=== PATIENT | female | born 1990 | race Two or more races ===

== ENCOUNTER 2017-10-14 17:16 | Emergency (ER) | payer OTHER ==
[2017-10-14 17:35] VITALS: BP 123/81
[2017-10-14 17:53] LABS: BILIRUBIN,URINE NEGATIVE (NEGATIVE); GLUCOSE, URINE (UA) NEGATIVE (NEGATIVE); KETONES,URINE (UA) NEGATIVE (NEGATIVE); LEUKOCYTE ESTERASE, URINE NEGATIVE (NEGATIVE); NITRITE,URINE NEGATIVE (NEGATIVE); OCCULT BLOOD,URINE NEGATIVE (NEGATIVE); PH,URINE 5.5 PH (5.0-7.5); PROTEIN,URINE NEGATIVE (NEGATIVE); UROBILINOGEN,URINE 0.2 (NORMAL) E.U./dL (NORMAL)
[2017-10-14 17:55] LABS: CLARITY,URINE CLEAR (CLEAR); HCG UR QUAL NEGATIVE
[2017-10-14] MEDS ORDERED: HYDROcod/ACETAM 5/325 MG TABLET PO STA (17:58)
[2017-10-14] MEDS ORDERED: predniSONE 20 MG TABLET PO STA (17:58)
--- NOTE | 2017-10-14 18:03 | ED Physician Documentation ---
PD HPI BACK PAIN - Stated complaint Stated Complaint: LOW BACK/HIP PX - Chief complaint Chief Complaint: Back Pain - History obtained from History obtained from: Patient - History of Present Illness Timing - onset: Other (4 days of atraumatic back pain across the low lumbar spine to both sides but not down the legs. No weakness, numbness, or tingling. She has not had any urinary complaints or fevers. 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 HEENT: Tonsil/Adenoidectomy - Present Medications Home Medications: Ambulatory Orders Medication Instructions Recorded Confirmed Albuterol Sulfate [Proair Hfa 10/14/17 Inhaler] Fluticasone [Flonase] 10/14/17 HYDROcod/ACETAM 5/325 [[place] 5/325] 1 - 2 ea PO Q6H PRN #15 tablet 10/14/17 predniSONE [Deltasone] 60 mg PO DAILY 5 Days tablet 10/14/17 - Allergies Allergies/Adverse Reactions: Allergies Allergy/AdvReac Type Severity Reaction Status Date / Time No Known Drug Allergies Allergy Verified 10/14/17 17:35 - Social History Does the pt smoke?: No Smoking Status: Never smoker PD ED PE NORMAL - Vitals Vital signs reviewed: Yes - General General: Alert and oriented X 3, No acute distress - Neck Neck: Supple, no meningeal sign, No bony TTP - Back Back: No spinal TTP, Other (The patient has equal and normal Achilles and patellar reflexes bilaterally. Normal sensation in all areas of the legs. Patient denies saddle anesthesia. Normal strength in flexion-extension at the ankles, knees, and flexion of the hips.) - Neuro Neuro: Alert and oriented X 3, Normal speech Results - Vitals Vitals: Vital Signs - 24 hr 10/14/17 17:31 Temperature 36.9 C Heart Rate 65 Respiratory 15 Rate Blood Pressure 123/81 H O2 Saturation 99 Oxygen O2 Source Room air - Labs Labs: Laboratory Tests 10/14/17 10/14/17 17:38 17:38 Urine Color YELLOW Urine Clarity CLEAR Urine pH 5.5 Ur Specific [place] 1.010 1.010 Urine Protein NEGATIVE Urine Glucose (UA) NEGATIVE Urine Ketones NEGATIVE Urine Occult Blood NEGATIVE Urine Nitrite NEGATIVE Urine Bilirubin NEGATIVE Urine Urobilinogen 0.2 (NORMAL) Ur Leukocyte Esterase NEGATIVE Ur Microscopic Review NOT INDICATED Urine Culture Comments NOT INDICATED Urine HCG, Qual NEGATIVE PD MEDICAL DECISION MAKING - ED course ED course: This patient has seemingly uncomplicated musculoskeletal back pain. The patient has no "red flags." Specifically denies IV drug use, fevers, incontinence, saddle anesthesia. Spinal epidural abscess was considered, given that the patient has no fever, is not diabetic, has no spinal tenderness, does not use IV drugs, and has no bilateral neurologic symptoms, the diagnosis of spinal epidural abscess is considered exceedingly unlikely. Departure - Departure Disposition: 01 Home, Self Care Clinical Impression: Back pain Qualifiers: Back pain location: low back pain Chronicity: acute Back pain laterality: bilateral Sciatica presence: without sciatica Qualified Code(s): M54.5 - Low back pain Condition: Good Record reviewed to determine appropriate education?: Yes Instructions: ED Low Back Pain Injury Prescriptions: HYDROcod/ACETAM 5/325 [[place] 5/325] 1 - 2 ea PO Q6H PRN #15 tablet PRN Reason: Pain predniSONE [Deltasone] 60 mg PO DAILY 5 Days tablet Comments: Call your doctor to arrange a follow-up appointment, make the next available appointment. In the interim, return anytime if worse or if new symptoms develop. Your blood pressure was elevated today on check into the emergency department. This does not mean that you have hypertension, it is a common phenomenon to come to the emergency department and have elevated blood pressure. I recommend that you see your primary care physician within the week to have it rechecked when you are feeling better. Do not drink or drive while taking narcotic pain medication. Note that many narcotic pain relievers also contain Tylenol/acetaminophen. Please ensure that your total dose of acetaminophen from all sources does not exceed 3 g (3000 mg) per day. You may get constipated while on this medication. Take a stool softener such as Colace twice a day while you are on it. Also add an wuby-yni-ouztwkk laxative such as senna or MiraLAX on any day that you do not have a bowel movement. If you received a narcotic pain medication or sedative while in the emergency department, do not drive for the next 24 hours.
== END 2017-10-14 18:11 | disposition home or self-care (01) ==
LOC: ED 17:16
DX: M54.5 Low back pain (principal); R03.0 Elevated blood-pressure reading, without diagnosis of hypertension
CPT/HCPCS: 81003; 81025; 99283; A9270; J7512; 81001; 87086

== ENCOUNTER 2019-07-24 19:19 | Outpatient (CLI) | payer OTHER ==
--- NOTE | 2019-07-25 00:51 | Ultrasound Report ---
Reason: PELVIC PAIN Procedure Date: 07/24/2019 Accession Number: [id number] / [id number] Procedure: US - Pelvic w/Transvaginal CPT Code: Final Report FULL RESULT: EXAM: PELVIC ULTRASOUND EXAM DATE: 07/24/2019 07:59 PM. CLINICAL HISTORY: Pelvic pain COMPARISON: None. TECHNIQUE: Realtime transabdominal pelvic scan performed to identify the uterus and adnexa and as an overview of other pelvic structures, followed by transvaginal scan to provide greater detail of the uterus and adnexa, with static image documentation. FINDINGS: Uterus: 9.3 x 5.1 x 4.8 cm, volume 119.9 cc. Anteverted position. Normal overall size and echotexture. scar noted. Masses: None. Endometrium: 7 mm. No focal endometrial abnormalities. Cervix: Unremarkable. Right Ovary: 2.2 x 2.1 x 2.7 cm, volume 6.2 cc. Normal echotexture and blood flow. Left Ovary: 2.6 x 1.8 x 1.4 cm, volume 3.4 cc. Normal echotexture and blood flow. Free Fluid: None. Other: None. IMPRESSION: No acute sonographic abnormalities. RADIA
== END 2019-07-24 19:20 | disposition home or self-care (01) ==
LOC: DI 19:19
PROVIDERS: ATTEND Physician Assistant
DX: R10.2 Pelvic and perineal pain (principal)
CPT/HCPCS: 76830; 76856

== ENCOUNTER 2020-02-14 14:17 | Emergency (ER) | payer OTHER ==
[2020-02-14 15:07] LABS: BASOPHILS % (AUTO) 0.3 %; EOSINOPHILS % (AUTO) 0.3 %; HGB - HEMOGLOBIN 12.8 g/dL (12.0-16.0); LYMPHOCYTES # (AUTO) 1.1 10^3/uL (1.5-3.5); LYMPHOCYTES % (AUTO) 18.2 %; MEAN CORPUSCULAR HEMOGLOBIN 32.2 pg (27.0-31.0); MEAN CORPUSCULAR HGB CONC 35.1 g/dL (32.0-36.0); MEAN CORPUSCULAR VOLUME 91.7 fL (81.0-99.0); MEAN PLATELET VOLUME 10.8 fL (7.9-10.8); MONOCYTES # (AUTO) 0.4 10^3/uL (0.0-1.0); MONOCYTES % (AUTO) 6.4 %; NEUTROPHILS # (AUTO) 4.6 10^3/uL (1.5-6.6); NEUTROPHILS % (AUTO) 74.6 %; PLT - PLATELET COUNT 193 10^3/uL (130-450); RED BLOOD COUNT 3.98 10^6/uL (4.20-5.40); RED CELL DISTRIBUTION WIDTH 11.8 % (12.0-15.0); WHITE BLOOD COUNT 6.2 x10^3/uL (4.8-10.8)
[2020-02-14] MEDS ORDERED: KETOROLAC 30 MG/ML VIAL IVP STA (15:16)
[2020-02-14] MEDS ORDERED: ONDANSETRON 4 MG/2 ML VIAL IVP STA (15:16)
[2020-02-14 15:20] LABS: ALBUMIN 3.7 g/dL (3.2-5.5); ALBUMIN/GLOBULIN RATIO 1.5 (1.0-2.2); BILIRUBIN,TOTAL 1.6 mg/dL (0.2-1.0); CALCIUM 7.7 mg/dL (8.5-10.3); CREATININE 0.9 mg/dL (0.4-1.0); TOTAL PROTEIN 6.1 g/dL (6.7-8.2)
[2020-02-14 15:37] LABS: HCG UR QUAL NEGATIVE
--- NOTE | 2020-02-14 15:51 | CT Report ---
Reason: syncope, right facial pain, jaw pain. R/o fx Procedure Date: 02/14/2020 Accession Number: [id number] / [id number] Procedure: CT - MAXILLOFACIAL WO CPT Code: Final Report FULL RESULT: PROCEDURE: MAXILLOFACIAL WO INDICATIONS: syncope, right facial pain, jaw pain. Clinical concern for fracture. TECHNIQUE: Noncontrast 1.5 mm thick axial images acquired from the mandible through the frontal sinuses, with coronal and sagittal reformatting. For radiation dose reduction, the following was used: automated exposure control, adjustment of mA and/or kV according to patient size. COMPARISON: None. FINDINGS: Image quality: Excellent. Bones and teeth: Orbital jordan are intact. Sinus jordan show no fracture or deformity. Nasal bones and septum are intact. Visualized portions of the mandible demonstrate no fractures or subluxation. Zygomatic arches are intact. Pterygoid plates are intact. Visualized portions of the skull base and auditory canals are intact. Sinuses: There is a mild mucous retention cyst seen along the inferior aspect of the left maxillary sinus, as on series 6 image 53. Paranasal sinuses are aerated, without fluid levels or mucosal thickening. Mastoid air cells are aerated. Incidental note is made of bilateral ida bullosa, left larger than right. There is mild rightward nasal septal deviation. Soft tissues: No edema, masses, or fluid collections. No enlarged lymph nodes. No soft tissue lacerations or debris. Vascular: Visualized vascular structures appear normal in the absence of contrast. Bony vascular foramina and canals are intact. IMPRESSION: No displaced fractures can be seen. Reviewed by: Daniel Zuleta MD on 02/14/2020 2:49 PM AKDT Approved by: Daniel Zuleta MD on 02/14/2020 2:49 PM AKDT Station ID: [id number]
[2020-02-14] MEDS ORDERED: SODIUM CHLORIDE 0.9% 1,000 ML IV STA (16:01)
--- NOTE | 2020-02-14 16:20 | ED Physician Documentation ---
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 pt reports that for about 4 hours she has been having n/v/d between midnight and 4am. She thought it was food poising and decided to push through at work. While walking in a hallway, she fainted. she does not remember the event, but woke up with people surrounding her. No loss of bowel or bladder function. pt reports a hx of recurrent syncope when she was a teenager. she had extensive imaging and w/u including EEG to r/o seizure activity. Ultimately it was attributed to vasovagal causes and she has not had any syncope for many years at present time, pt is c/p right face and jaw pain in the area where she hit her head. she in in a c-collar but denies neck pain. C-collar removed at the bedside; she does not meet NEXUS criteria for c-spine imaging Review of Systems Constitutional: denies: Fever, Chills, Fatigue Ears: denies: Loss of hearing Nose: reports: Other (right jaw and facial pain). denies: Rhinorrhea / runny nose Throat: denies: Dental pain / toothache, Oral lesions / sores Cardiac: denies: Chest pain / pressure, Palpitations Respiratory: denies: Dyspnea GI: reports: Nausea, Vomiting (n/v/d for 24 hours preceeding ED visit), Diarrhea. denies: Abdominal Pain : denies: Dysuria Skin: denies: Rash, Lesions, Laceration (s) Musculoskeletal: reports: Other (right jaw and facial pain) Neurologic: reports: Syncope. 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 HEENT: Tonsil/Adenoidectomy - Present Medications Home Medications: Ambulatory Orders Medication Instructions Recorded Confirmed Norethindrone AC-Eth Estradiol 02/14/20 [Microgestin 21 1.5-30 Tab] - Allergies Allergies/Adverse Reactions: Allergies Allergy/AdvReac Type Severity Reaction Status Date / Time No Known Drug Allergies Allergy Verified 02/14/20 14:31 - Social History Does the pt smoke?: No Smoking Status: Never smoker PD ED PE NORMAL - Vitals Vital signs reviewed: Yes - General General: Alert and oriented X 3, No acute distress, Well developed/nourished - HEENT HEENT: Atraumatic, Ears normal, Pharynx benign - Neck Neck: Supple, no meningeal sign, No bony TTP, No adenopathy, Other (no midlien spionous process tenderness. motor strength 5/5 BUE. no swelling, trauma. full ROM neck in all planes withotu pain elicited; C-collar removed and no C pine imaging performed via NEXUS criteria) - Cardiac Cardiac: RRR, No murmur, No gallop - Respiratory Respiratory: No respiratory distress - Abdomen Abdomen: Normal bowel sounds, Non tender - Female Female : No: Deferred - Back Back: No spinal TTP - Derm Derm: Normal color, Warm and dry, No rash - Extremities Extremities: No deformity, Normal ROM s pain, No calf tenderness / cord - Neuro Neuro: broomcorn scraper 2-12 intact, No motor deficit, No sensory deficit, Normal speech Eye Opening: Spontaneous Motor: Obeys Commands Verbal: Oriented GCS Score: 15 - Psych Psych: Normal mood Results - Vitals Vitals: Vital Signs - 24 hr 02/14/20 02/14/20 14:33 14:44 Temperature 37.1 C Heart Rate 80 55 L Respiratory 24 17 Rate Blood Pressure 115/74 119/67 O2 Saturation 99 100 Oxygen O2 Source Room air - EKG (time done) 1523 Rate: Rate (enter#) Rhythm: NSR [place]: Normal Intervals: Normal NE QRS: Normal Ischemia: Normal ST segments Compare to prior EKG: Old EKG unavailable Computer interpretation: Agree with computer - Labs Labs: Laboratory Tests 02/14/20 02/14/20 02/14/20 14:59 14:59 14:59 WBC 6.2 RBC 3.98 L Hgb 12.8 Hct 36.5 L MCV 91.7 MCH 32.2 H MCHC 35.1 RDW 11.8 L Plt Count 193 MPV 10.8 Neut # (Auto) 4.6 Lymph # (Auto) 1.1 L Elliott # (Auto) 0.4 Eos # (Auto) 0.0 Baso # (Auto) 0.0 Absolute Nucleated RBC 0.00 Nucleated RBC % 0.0 Sodium 135 Potassium 3.6 Chloride 106 Carbon Dioxide 23 Anion Gap 6.0 BUN 13 Creatinine 0.9 Estimated GFR (MDRD) 74 L Glucose 89 Calcium 7.7 L Total Bilirubin 1.6 H AST 16 ALT 15 Alkaline Phosphatase 36 L Troponin I High Sens < 2.3 L Total Protein 6.1 L Albumin 3.7 Globulin 2.4 Albumin/Globulin Ratio 1.5 Lipase 30 Ur Specific [place] Urine HCG, Qual 02/14/20 15:25 WBC RBC Hgb Hct MCV MCH MCHC RDW Plt Count MPV Neut # (Auto) Lymph # (Auto) Elliott # (Auto) Eos # (Auto) Baso # (Auto) Absolute Nucleated RBC Nucleated RBC % Sodium Potassium Chloride Carbon Dioxide Anion Gap BUN Creatinine Estimated GFR (MDRD) Glucose Calcium Total Bilirubin AST ALT Alkaline Phosphatase Troponin I High Sens Total Protein Albumin Globulin Albumin/Globulin Ratio Lipase Ur Specific [place] <=1.005 Urine HCG, Qual NEGATIVE - Rads (name of study) Ct max fa Radiology: Final report received (no acute abnormality) PD MEDICAL DECISION MAKING - ED course Complexity details: reviewed results, re-evaluated patient, d/w patient ED course: Syncope in 29 year old female that occurred at work. this followed 4 hours of persistent n/v/d overnight - non - ECG NSR, no ischemic changes. pt denies CP and pleuritic chest pain; doubt PE. PERC negative - labs reviewed. essentially normal electrolytes. no anemia. noted mild bilirubin elevation, but normal lipase and no abdominal tenderness elicited. low suspicion for acute choley - pt reported right sided facial pain after she syncopized and hit the wall. No e/o fracture. pt given toradol with good relief of symptoms. - pt received 2 liters of IVF and her lightheadedness has improved - orthostatic BP's reviewed and not c/w orthostatic changes. BP's noted in the 90's, but pt notes that this is normal for her - will recommed fluids and rest at home. pt is not tolerating PO well in the ED. no need for anti-emetic - advised close f/u with her PCP in the next week - emergent return precautions discussed - Departure - Departure Disposition: 01 Home, Self Care Clinical Impression: Facial pain, acute Syncope Qualifiers: Syncope type: unspecified Qualified Code(s): R55 - Syncope and collapse Condition: Stable Record reviewed to determine appropriate education?: Yes Instructions: ED Dizziness Syncope Fainting W Pre Comments: Demetra, I hope you feel better Stay for and get lots of rest and fluids. Drink and eat small meals frequently The labs and CT look pretty normal. I suspect that you had fainting secondary to being dehydrated after vomiting and diarrhea overnight However if your symptoms are not improving in any way, please return for a second look I would like you to see your primary doctor in follow up in the next week
[2020-02-14 16:47] VITALS: BP 97/60
== END 2020-02-14 17:24 | disposition home or self-care (01) ==
LOC: EDUNIT# → ED 14:17
DX: R55 Syncope and collapse (principal); R11.2 Nausea with vomiting, unspecified; R19.7 Diarrhea, unspecified; R51 Headache; R68.84 Jaw pain; W18.30XA Fall on same level, unspecified, initial encounter; Y93.01 Activity, walking, marching and hiking; Y99.0 Civilian activity done for income or pay
CPT/HCPCS: 36415; 70486; 80053; 81025; 83690; 84484; 85025; 93005; 96361; 96374; 99284

== ENCOUNTER 2020-07-02 17:08 | Outpatient (CLI) | payer SELFPAY | END 2020-07-02 17:09 | disposition home or self-care (01) | LOC: COV 17:08 | PROVIDERS: ATTEND Family Medicine | DX: Z20.828 Contact with and (suspected) exposure to other viral communicable diseases (principal) ==

== ENCOUNTER 2020-08-13 14:12 | Outpatient (CLI) | payer OTHER | END 2020-08-13 14:13 | disposition home or self-care (01) | LOC: COV 14:12 | PROVIDERS: ATTEND Family Medicine | DX: R50.9 Fever, unspecified (principal); R05 Cough; R06.02 Shortness of breath; M79.10 Myalgia, unspecified site; R53.83 Other fatigue; J02.9 Acute pharyngitis, unspecified; R19.7 Diarrhea, unspecified; R09.81 Nasal congestion; R11.2 Nausea with vomiting, unspecified; Z20.828 Contact with and (suspected) exposure to other viral communicable diseases ==

== ENCOUNTER 2021-03-09 20:34 | Outpatient (CLI) | payer SELFPAY | END 2021-03-09 20:35 | disposition other institution (70) | LOC: EMS 20:34 | DX: S00.12XA Contusion of left eyelid and periocular area, initial encounter (principal); V58.5XXA Driver of pick-up truck or van injured in noncollision transport accident in traffic accident, initial encounter; Y93.89 Activity, other specified; Y92.413 State road as the place of occurrence of the external cause; M54.9 Dorsalgia, unspecified; M54.2 Cervicalgia; R56.9 Unspecified convulsions | CPT/HCPCS: A0425; A0427 ==

== ENCOUNTER 2021-04-01 08:32 | Emergency (ER) | payer OTHER ==
[2021-04-01 08:53] VITALS: BP 114/68
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
[2021-04-01] MEDS: TRIAMCINOLONE 40 MG/ML VIAL IM STA (09:23)
[2021-04-01] MEDS: HYDROmorphone 1 MG/ML CARPUJECT IM STA ×2 (09:25→10:36)
[2021-04-01] MEDS: KETOROLAC 15 MG/ML VIAL IM STA (09:25)
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
[2021-04-01] MEDS: methocarbamoL 500 MG TABLET PO STA (10:37)
== END 2021-04-01 12:36 | disposition home or self-care (01) ==
LOC: ED 08:32
DX: S39.012A Strain of muscle, fascia and tendon of lower back, initial encounter (principal); X58.XXXA Exposure to other specified factors, initial encounter
CPT/HCPCS: 72131; 96372; 99284; A9270; J1170

== ENCOUNTER 2021-06-04 09:10 | Outpatient (CLI) | payer OTHER | END 2021-06-04 09:11 | disposition critical access hospital (66) | LOC: EMS 09:10 | DX: Z04.1 Encounter for examination and observation following transport accident (principal); M54.5 Low back pain | CPT/HCPCS: A0425; A0427 ==

== ENCOUNTER 2021-06-04 09:18 | Emergency (ER) | payer OTHER ==
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
[2021-06-04] MEDS ORDERED: HYDROmorphone 1 MG/ML CARPUJECT IVP STA ×2 (09:31→10:32)
[2021-06-04] MEDS ORDERED: KETOROLAC 15 MG/ML VIAL IVP STA (09:31)
[2021-06-04] MEDS ORDERED: SODIUM CHLORIDE 0.9% 1,000 ML IV STA (09:31)
[2021-06-04 09:40] LABS: BASOPHILS % (AUTO) 0.4 %; EOSINOPHILS # (AUTO) 0.1 10^3/uL (0.0-0.7); EOSINOPHILS % (AUTO) 0.8 %; HCT - HEMATOCRIT 43.4 % (37.0-47.0); LYMPHOCYTES # (AUTO) 1.2 10^3/uL (1.5-3.5); LYMPHOCYTES % (AUTO) 13.6 %; MEAN CORPUSCULAR HEMOGLOBIN 31.9 pg (27.0-31.0); MEAN CORPUSCULAR HGB CONC 34.6 g/dL (32.0-36.0); MEAN CORPUSCULAR VOLUME 92.3 fL (81.0-99.0); MEAN PLATELET VOLUME 10.6 fL (7.9-10.8); MONOCYTES # (AUTO) 0.3 10^3/uL (0.0-1.0); NEUTROPHILS # (AUTO) 6.8 10^3/uL (1.5-6.6); PLT - PLATELET COUNT 235 10^3/uL (130-450); RED CELL DISTRIBUTION WIDTH 11.5 % (12.0-15.0); WHITE BLOOD COUNT 8.4 x10^3/uL (4.8-10.8)
[2021-06-04] MEDS ORDERED: IOPAMIDOL-300 100 ML VIAL ONE (09:47)
[2021-06-04 09:53] LABS: ALBUMIN 4.4 g/dL (3.2-5.5); ALBUMIN/GLOBULIN RATIO 1.4 (1.0-2.2); BILIRUBIN,TOTAL 1.4 mg/dL (0.2-1.0); CALCIUM 9.3 mg/dL (8.5-10.3); CREATININE 0.8 mg/dL (0.4-1.0); POTASSIUM 4.1 mmol/L (3.5-5.0); TOTAL PROTEIN 7.6 g/dL (6.7-8.2)
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
[2021-06-04 10:22] LABS: HCG,QUALITATIVE BLOOD NEGATIVE
[2021-06-04] MEDS ORDERED: DEXAMETHASONE 10 MG/ML VIAL IVP STA (10:32)
[2021-06-04] MEDS ORDERED: IOPAMIDOL-300 100 ML VIAL IVP ONE (11:46)
[2021-06-04] MEDS ORDERED: DROPERIDOL 5 MG/2 ML VIAL IVP STA (12:07)
[2021-06-04 12:42] VITALS: BP 94/55
== END 2021-06-04 12:53 | disposition home or self-care (01) ==
LOC: EDUNIT# → ED 09:18
DX: S39.012A Strain of muscle, fascia and tendon of lower back, initial encounter (principal); S16.1XXA Strain of muscle, fascia and tendon at neck level, initial encounter; S20.219A Contusion of unspecified front wall of thorax, initial encounter; V47.0XXA Car driver injured in collision with fixed or stationary object in nontraffic accident, initial encounter
CPT/HCPCS: 36415; 70450; 71260; 72125; 74177; 80053; 83690; 84703; 85025; 96374; 96375; 99284; 99285; J1170; Q9967

== ENCOUNTER 2022-04-08 15:14 | Emergency (ER) | payer OTHER ==
--- OUTSIDE RECORDS SUMMARY | 2022-04-08 15:44 | EXTERNAL MEDICAL SUMMARY RPT | Continuity of Care Document ---
:1990 Author Organization [facility] Address [address] [place] [address] Phone Allergies and Intolerances date description facility type (no date) No Known Drug Allergies [facility] (unkn own) Encounters No information. Functional Status No information. Immunizations No information. Medications date description facility [id number]+0000 prochlorperazine maleate All [id number]+0000 hydrocodone-acetaminophen All 22541927998781+0000 Ondansetron 4 MG Disintegrating Tablet [facility] [id number]+0000 Oxycodone Hydrochloride 5 MG Oral Tabl [facility] 28612716639087+0000 Prochlorperazine 10 MG Oral Tablet Is [facility] 12107433507529+0000 prochlorperazine maleate All 82039842982292+0000 Acetaminophen 325 MG Oral Capsule [facility] 62123690617648+0000 norethindrone-e.estradiol-iron All 96686519413165+0000 Ibuprofen [address] [facility]spital 21411664996995+0000 norethindrone-e.estradiol-iron All 32094194557984+0000 Acetaminophen 325 MG / Hydrocodone Is [facility] Bitartrate 5 MG Oral Tablet 39435359205800+0000 hydrocodone-acetaminophen All Problems No information. Procedures date description facility +0000 [facility] 40776250233151+0000 [facility] 58885063488310+0000 [facility] [id number]+0000 [facility] Results/Labs test date author facility value unit interpret ation Result panel 1 (unknown) (no (unknown) (unknown) (no value) (units (unk nown) date) unknown) (unknown) (no (unknown) (unknown) (no value) (units (unk nown) date) unknown) (unknown) (no (unknown) (unknown) [place], [place] (units ( unknown) date) [address] unknown) (unknown) (no (unknown) (unknown) Draft (units (unkno wn) date) unknown) (unknown) (no (unknown) (unknown) [facility] (units (unknown) date) unknown) (unknown) (no (unknown) (unknown) Nurse Office (units (u nknown) date) Visit unknown) (unknown) (no (unknown) (unknown) (no value) (units (unk nown) date) unknown) (unknown) (no (unknown) (unknown) COVID-19 (units (u nknown) date) unknown) (unknown) (no (unknown) (unknown) [id number] (units (unkn own) date) unknown) (unknown) (no (unknown) (unknown) 01/20/22 (units (unkno wn) date) unknown) (unknown) (no (unknown) (unknown) Age/Sex: 31 / F (units (unknown) date) Date of unknown) Service: (unknown) (no (unknown) (unknown) Allergies (units (unkn own) date) unknown) (unknown) (no (unknown) (unknown) Attending Dr: (units ( unknown) date) Rishabh Baez MD unknown) (unknown) (no (unknown) (unknown) : 1990 (units (unknown) date) Acct:[id number] unknown) (unknown) (no (unknown) (unknown) Dept at (units (unkno wn) date) . unknown) (unknown) (no (unknown) (unknown) Documented By: (units (unknown) date) Rishabh Baez MD unknown) 01/20/22 1505 (unknown) (no (unknown) (unknown) Evaluation/Scree (units (unknown) date) harriett for possible unknown) COVID-19 completed?: Yes- COVID-19 CPT (unknown) (no (unknown) (unknown) Health (units (unkno wn) date) Management unknown) (unknown) (no (unknown) (unknown) Health (units (unkno wn) date) Management unknown) reviewed with patient: No (unknown) (no (unknown) (unknown) Intake (units (unkno wn) date) unknown) (unknown) (no (unknown) (unknown) Intake Note: (units (u nknown) date) unknown) (unknown) (no (unknown) (unknown) Loc: [facility] (units (unkno wn) date) unknown) (unknown) (no (unknown) (unknown) No Known Drug (units ( unknown) date) Allergies Allergy unknown) (Verified 12/29/21 15:22) (unknown) (no (unknown) (unknown) Note (units (unkno wn) date) unknown) (unknown) (no (unknown) (unknown) Patient: (units (unkno wn) date) Demetra Young C unknown) MR#: M (unknown) (no (unknown) (unknown) Pt came in for a (units (unknown) date) pre-op covid unknown) test. Denied any covid symptoms. Explained covid (unknown) (no (unknown) (unknown) Reason For Visit (units (unknown) date) unknown) (unknown) (no (unknown) (unknown) Signed By: (units (unk nown) date) unknown) (unknown) (no (unknown) (unknown) Smoking Status: (units (unknown) date) Never smoker unknown) (unknown) (no (unknown) (unknown) This note may (units ( unknown) date) have been all or unknown) partially generated using voice recognition (unknown) (no (unknown) (unknown) Tobacco Status (units (unknown) date) unknown) (unknown) (no (unknown) (unknown) Visit Reasons: (units (unknown) date) COVID/MARQUIS unknown) (unknown) (no (unknown) (unknown) have occurred. (units (unknown) date) If there are any unknown) questions, please contact the Medical Records (unknown) (no (unknown) (unknown) may occur. (units (unk nown) date) Occasional unknown) wrong-word or 'sound-alike' substitutions may have (unknown) (no (unknown) (unknown) occurred due to (units (unknown) date) the inherent unknown) limitations of voice recognition software. Please (unknown) (no (unknown) (unknown) read the note (units ( unknown) date) carefully and unknown) recognize, using context, where these substitutions (unknown) (no (unknown) (unknown) software. (units (unkn own) date) Although every unknown) effort is made to edit content, product director errors (unknown) (no (unknown) (unknown) test to pt. (units (un known) date) Tolerated test unknown) well. Result panel 2 (unknown) (no date) (unknown) (unknown) Negative (units (unkn own) unknown) Result panel 3 (unknown) (no (unknown) (unknown) (no value) (units (unk nown) date) unknown) (unknown) (no (unknown) (unknown) (no value) (units (unk nown) date) unknown) (unknown) (no (unknown) (unknown) 01/21/22 0836 (units ( unknown) date) unknown) (unknown) (no (unknown) (unknown) [place], [place] (units ( unknown) date) [address] unknown) (unknown) (no (unknown) (unknown) [facility] (units (unknown) date) unknown) (unknown) (no (unknown) (unknown) Nurse Office (units (u nknown) date) Visit unknown) (unknown) (no (unknown) (unknown) Signed (units (unkno wn) date) unknown) (unknown) (no (unknown) (unknown) (no value) (units (unk nown) date) unknown) (unknown) (no (unknown) (unknown) COVID-19 (units (u nknown) date) unknown) (unknown) (no (unknown) (unknown) [id number] (units (unkn own) date) unknown) (unknown) (no (unknown) (unknown) 01/20/22 (units (unkno wn) date) unknown) (unknown) (no (unknown) (unknown) Age/Sex: 31 / F (units (unknown) date) Date of unknown) Service: (unknown) (no (unknown) (unknown) Allergies (units (unkn own) date) unknown) (unknown) (no (unknown) (unknown) Attending Dr: (units ( unknown) date) Rishabh Baez MD unknown) (unknown) (no (unknown) (unknown) : 1990 (units (unknown) date) Acct:[id number] unknown) (unknown) (no (unknown) (unknown) Dept at (units (unkno wn) date) . unknown) (unknown) (no (unknown) (unknown) Documented By: (units (unknown) date) Rishabh Baez MD unknown) 01/20/22 1505 (unknown) (no (unknown) (unknown) Evaluation/Scree (units (unknown) date) harriett for possible unknown) COVID-19 completed?: Yes- COVID-19 CPT (unknown) (no (unknown) (unknown) Health (units (unkno wn) date) Management unknown) (unknown) (no (unknown) (unknown) Health (units (unkno wn) date) Management unknown) reviewed with patient: No (unknown) (no (unknown) (unknown) Intake (units (unkno wn) date) unknown) (unknown) (no (unknown) (unknown) Intake Note: (units (u nknown) date) unknown) (unknown) (no (unknown) (unknown) Loc: [facility] (units (unkno wn) date) unknown) (unknown) (no (unknown) (unknown) No Known Drug (units ( unknown) date) Allergies Allergy unknown) (Verified 12/29/21 15:22) (unknown) (no (unknown) (unknown) Note (units (unkno wn) date) unknown) (unknown) (no (unknown) (unknown) Patient: (units (unkno wn) date) Demetra Young unknown) MR#: M (unknown) (no (unknown) (unknown) Pt came in for a (units (unknown) date) pre-op covid unknown) test. Denied any covid symptoms. Explained covid (unknown) (no (unknown) (unknown) Reason For Visit (units (unknown) date) unknown) (unknown) (no (unknown) (unknown) Signed By: (units (unk nown) date) <Electronically unknown) signed by Rishabh Baez MD> (unknown) (no (unknown) (unknown) Smoking Status: (units (unknown) date) Never smoker unknown) (unknown) (no (unknown) (unknown) This note may (units ( unknown) date) have been all or unknown) partially generated using voice recognition (unknown) (no (unknown) (unknown) Tobacco Status (units (unknown) date) unknown) (unknown) (no (unknown) (unknown) Visit Reasons: (units (unknown) date) COVID/MARQUIS unknown) (unknown) (no (unknown) (unknown) have occurred. (units (unknown) date) If there are any unknown) questions, please contact the Medical Records (unknown) (no (unknown) (unknown) may occur. (units (unk nown) date) Occasional unknown) wrong-word or 'sound-alike' substitutions may have (unknown) (no (unknown) (unknown) occurred due to (units (unknown) date) the inherent unknown) limitations of voice recognition software. Please (unknown) (no (unknown) (unknown) read the note (units ( unknown) date) carefully and unknown) recognize, using context, where these substitutions (unknown) (no (unknown) (unknown) software. (units (unkn own) date) Although every unknown) effort is made to edit content, product director errors (unknown) (no (unknown) (unknown) test to pt. (units (un known) date) Tolerated test unknown) well. Result panel 4 (unknown) (no date) (unknown) (unknown) (no value) (units (un known) unknown) (unknown) (no date) (unknown) (unknown) Date of (units (unkn own) Service: unknown) 01/21/22 (unknown) (no date) (unknown) (unknown) [facility]units ([facility] own[facility] [address] unknown) [address] [place] [id number] (unknown) (no date) (unknown) (unknown) Pre-operative (units (unknown) Note unknown) (unknown) (no date) (unknown) (unknown) (no value) (units (un known) unknown) (unknown) (no date) (unknown) (unknown) [phone] (units (unk nown) unknown) (unknown) (no date) (unknown) (unknown) Age/Sex: 31 / (units (unknown) F unknown) (unknown) (no date) (unknown) (unknown) Changes to (units (un known) H+P: No unknown) (unknown) (no date) (unknown) (unknown) : (units (unkn own) 1990 unknown) Acct:[id number] (unknown) (no date) (unknown) (unknown) History + (units (unk nown) Physical unknown) reviewed/Exam performed by Physician: Yes (unknown) (no date) (unknown) (unknown) Interval Note (units (unknown) unknown) (unknown) (no date) (unknown) (unknown) Patient: (units (unkn own) Balwinder Young unknown) y C MR#: M (unknown) (no date) (unknown) (unknown) Pre-operative (units (unknown) Note unknown) (unknown) (no date) (unknown) (unknown) Provider: (units (unk nown) Rishabh Baez unknown) (unknown) (no date) (unknown) (unknown) Signed (units (unkn own) By:<Electronic unknown) ally signed by Rishabh Baez MD>01/21/22 1348 Result panel 5 (unknown) (no date) (unknown) (unknown) (no value) (units (un known) unknown) (unknown) (no date) (unknown) (unknown) Date of (units (unkn own) Service: unknown) 01/21/22 (unknown) (no date) (unknown) (unknown) [facility] [address] unknown) [address] [place] [id number] (unknown) (no date) (unknown) (unknown) Operative Note (units (unknown) unknown) (unknown) (no date) (unknown) (unknown) (no value) (units (un known) unknown) (unknown) (no date) (unknown) (unknown) [phone] (units (unk nown) unknown) (unknown) (no date) (unknown) (unknown) Age/Sex: 31 / (units (unknown) F unknown) (unknown) (no date) (unknown) (unknown) : (units (unkn own) 1990 unknown) Acct:[id number] (unknown) (no date) (unknown) (unknown) Date of (units (unkn own) procedure: unknown) 01/21/22 (unknown) (no date) (unknown) (unknown) Operative (units (unk nown) Date/Time/Diagn unknown) oses (unknown) (no date) (unknown) (unknown) Patient: (units (unkn own) Demetra Young unknown) C MR#: M (unknown) (no date) (unknown) (unknown) Post-op (units (unkn own) diagnosis: same unknown) (unknown) (no date) (unknown) (unknown) 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 (unknown) (no date) (unknown) (unknown) Procedure + (units (u nknown) Clinicians unknown) (unknown) (no date) (unknown) (unknown) Procedure: (units (un known) unknown) (unknown) (no date) (unknown) (unknown) Provider: (units (unk nown) Rishabh Baez unknown) (unknown) (no date) (unknown) (unknown) Signed By: (units (un known) unknown) (unknown) (no date) (unknown) (unknown) Time of (units (unkn own) procedure: unknown) 15:43 (unknown) (no date) (unknown) (unknown) open repair of (units (unknown) right spigelian unknown) Result panel 6 (unknown) (no (unknown) (unknown) (no value) (units (unk nown) date) unknown) (unknown) (no (unknown) (unknown) Date of Service: (units (unknown) date) 01/21/22 unknown) (unknown) (no (unknown) (unknown) [facility] (units (unknown) date) [address] [place] [address] unknown) [place] [address] (unknown) (no (unknown) (unknown) Operative Note (units (unknown) date) unknown) (unknown) (no (unknown) (unknown) (no value) (units (unk nown) date) unknown) (unknown) (no (unknown) (unknown) [phone] (units (unkn own) date) unknown) (unknown) (no (unknown) (unknown) A time-out was (units (unknown) date) performed. A unknown) curvilinear incision was made inferior to the (unknown) (no (unknown) (unknown) Age/Sex: 31 / F (units (unknown) date) unknown) (unknown) (no (unknown) (unknown) Ancef prior to skin (unit s (unknown) date) incision. They were unknown) prepped and draped in sterile fashion. (unknown) (no (unknown) (unknown) Anesthesia Type: (units (unknown) date) General unknown) (unknown) (no (unknown) (unknown) Click Yes if (units (u nknown) date) Unassisted: Yes unknown) (unknown) (no (unknown) (unknown) Complications: none (unit s (unknown) date) unknown) (unknown) (no (unknown) (unknown) Condition: stable (units (unknown) date) unknown) (unknown) (no (unknown) (unknown) : 1990 (units (unknown) date) Acct:[id number] unknown) (unknown) (no (unknown) (unknown) Date of procedure: (units (unknown) date) 01/21/22 unknown) (unknown) (no (unknown) (unknown) Disposition: same (units (unknown) date) day surgery unknown) (unknown) (no (unknown) (unknown) Estimated Blood (units (unknown) date) Loss (mL): 10 unknown) (unknown) (no (unknown) (unknown) Findings: (units (unkn own) date) unknown) (unknown) (no (unknown) (unknown) Indications: (units (u nknown) date) unknown) (unknown) (no (unknown) (unknown) Operative (units (unkn own) date) Date/Time/Diagnoses unknown) (unknown) (no (unknown) (unknown) Operative Notes (units (unknown) date) unknown) (unknown) (no (unknown) (unknown) Patient was brought (units (unknown) date) to the operating unknown) room placed supine on the table. Bilateral (unknown) (no (unknown) (unknown) Patient: (units (unkno wn) date) Shakila Youngney C unknown) MR#: M (unknown) (no (unknown) (unknown) Post-op diagnosis: (units (unknown) date) same unknown) (unknown) (no (unknown) (unknown) Post-operative (units (unknown) date) unknown) (unknown) (no (unknown) (unknown) Pre-op diagnosis: (units (unknown) date) spigelian hernia unknown) (unknown) (no (unknown) (unknown) Procedure + (units (un known) date) Clinicians unknown) (unknown) (no (unknown) (unknown) Procedure in (units (u nknown) date) detail: unknown) (unknown) (no (unknown) (unknown) Procedure: (units (unk nown) date) unknown) (unknown) (no (unknown) (unknown) Provider: (units (unkn own) date) Rishabh Baez MD unknown) (unknown) (no (unknown) (unknown) Same procedure as (units (unknown) date) scheduled: Yes unknown) (unknown) (no (unknown) (unknown) Signed By: (units (unk nown) date) unknown) (unknown) (no (unknown) (unknown) Specimen(s): none (units (unknown) date) sent unknown) (unknown) (no (unknown) (unknown) Surgeon: Rishabh (units (unknown) date) Marquis unknown) (unknown) (no (unknown) (unknown) Time of procedure: (units (unknown) date) 15:43 unknown) (unknown) (no (unknown) (unknown) Using blunt (units (un known) date) dissection I unknown) carefully carefully freed the hernia sac from beneath (unknown) (no (unknown) (unknown) and contained (units ( unknown) date) viable omentum. The unknown) omentum was reduced back into the abdomen. (unknown) (no (unknown) (unknown) and transferred to (units (unknown) date) postoperative care unknown) unit in stable condition. (unknown) (no (unknown) (unknown) application of (units (unknown) date) Dermabond and unknown) Steri-Strips. Sponge instrument count at the end (unknown) (no (unknown) (unknown) beneath the fascia (units (unknown) date) defect and above the unknown) peritoneum in a sublay position. The (unknown) (no (unknown) (unknown) circumferentially (units (unknown) date) off of the fascia unknown) defect. The hernia sac was sharply opened (unknown) (no (unknown) (unknown) cm in maximal (units ( unknown) date) diameter. A Bard unknown) Ventralex ST hernia patch 4 cm was inserted (unknown) (no (unknown) (unknown) fat containing (units (unknown) date) right spigelian unknown) hernia (unknown) (no (unknown) (unknown) identified and the (units (unknown) date) hernia sac was unknown) dissected off the umbilical skin and (unknown) (no (unknown) (unknown) induced and they (units (unknown) date) were intubated with unknown) an endotracheal tube. They received 2 g of (unknown) (no (unknown) (unknown) lower extremity (units (unknown) date) compression devices unknown) were applied. General anesthesia was (unknown) (no (unknown) (unknown) mesh was anchored (units (unknown) date) in multiple unknown) locations using Ethibond suture to the fascia and (unknown) (no (unknown) (unknown) of the operation (units (unknown) date) was correct. unknown) Patient tolerated procedure well was extubated (unknown) (no (unknown) (unknown) open repair of (units (unknown) date) right spigelian unknown) (unknown) (no (unknown) (unknown) painful spigelian (units (unknown) date) hernia right upper unknown) quadrant (unknown) (no (unknown) (unknown) reapproximated (units (unknown) date) using 3 0 Vicry,l unknown) skin closed with 4 0 Monocryl followed by the (unknown) (no (unknown) (unknown) the fascia defect (units (unknown) date) in order to unknown) accomodate the mesh. The fascia defect was 1.5 (unknown) (no (unknown) (unknown) the fascial defect (units (unknown) date) was closed over the unknown) mesh. The umbilical skin was tacked to (unknown) (no (unknown) (unknown) the subcutaneous (units (unknown) date) tissues and then the unknown) remainder of the subcutaneous tissues were (unknown) (no (unknown) (unknown) umbilicus. The (units (unknown) date) subcutaneous tissues unknown) were divided. The umbilical hernia was Result panel 7 (unknown) (no (unknown) (unknown) (no value) (units (unk nown) date) unknown) (unknown) (no (unknown) (unknown) Date of Service: (units (unknown) date) 01/21/22 unknown) (unknown) (no (unknown) (unknown) [facility] (units (unknown) date) [address] unknown) [place] [address] (unknown) (no (unknown) (unknown) Operative Note (units (unknown) date) unknown) (unknown) (no (unknown) (unknown) (no value) (units (unk nown) date) unknown) (unknown) (no (unknown) (unknown) [phone] (units (unkn own) date) unknown) (unknown) (no (unknown) (unknown) 3 cm. The (units (unk nown) date) subcutaneous unknown) tissues were divided. The right rectus was mobilized (unknown) (no (unknown) (unknown) A time-out was (units (unknown) date) performed. unknown) Vertical upper right of midline incision was made of (unknown) (no (unknown) (unknown) Age/Sex: 31 / F (units (unknown) date) unknown) (unknown) (no (unknown) (unknown) Ancef prior to (units (unknown) date) skin incision. unknown) They were prepped and draped in sterile fashion. (unknown) (no (unknown) (unknown) Anesthesia Type: (units (unknown) date) General unknown) (unknown) (no (unknown) (unknown) Click Yes if (units (u nknown) date) Unassisted: Yes unknown) (unknown) (no (unknown) (unknown) Complications: (units (unknown) date) none unknown) (unknown) (no (unknown) (unknown) Condition: (units (unk nown) date) stable unknown) (unknown) (no (unknown) (unknown) : 1990 (units (unknown) date) Acct:[id number] unknown) (unknown) (no (unknown) (unknown) Date of (units (unkno wn) date) procedure: unknown) 01/21/22 (unknown) (no (unknown) (unknown) Disposition: (units (u nknown) date) same day surgery unknown) (unknown) (no (unknown) (unknown) Estimated Blood (units (unknown) date) Loss (mL): 10 unknown) (unknown) (no (unknown) (unknown) Findings: (units (unkn own) date) unknown) (unknown) (no (unknown) (unknown) Indications: (units (u nknown) date) unknown) (unknown) (no (unknown) (unknown) Operative (units (unkn own) date) Date/Time/Diagnos unknown) es (unknown) (no (unknown) (unknown) Operative Notes (units (unknown) date) unknown) (unknown) (no (unknown) (unknown) Patient was (units (unk n) date) brought to the unknown) operating room placed supine on the table. Bilateral (unknown) (no (unknown) (unknown) Patient: (units (unkno wn) date) Demetra Young C unknown) MR#: M (unknown) (no (unknown) (unknown) Post-op (units (unkno wn) date) diagnosis: same unknown) (unknown) (no (unknown) (unknown) Post-operative (units (unknown) date) unknown) (unknown) (no (unknown) (unknown) Pre-op (units (unkno wn) date) diagnosis: unknown) spigelian hernia (unknown) (no (unknown) (unknown) Procedure + (units (un known) date) Clinicians unknown) (unknown) (no (unknown) (unknown) Procedure in (units (u nknown) date) detail: unknown) (unknown) (no (unknown) (unknown) Procedure: (units (unk nown) date) unknown) (unknown) (no (unknown) (unknown) Provider: (units (unkn own) date) Rishabh Baez MD unknown) (unknown) (no (unknown) (unknown) Same procedure (units (unknown) date) as scheduled: Yes unknown) (unknown) (no (unknown) (unknown) Signed (units (unkno wn) date) By:<Electronicall unknown) y signed by Rishabh aBez MD>01/21/22 1603 (unknown) (no (unknown) (unknown) Specimen(s): (units (u nknown) date) none sent unknown) (unknown) (no (unknown) (unknown) Surgeon: Rishabh (units (unknown) date) Marquis unknown) (unknown) (no (unknown) (unknown) Time of (units (unkno wn) date) procedure: 15:43 unknown) (unknown) (no (unknown) (unknown) anchored in (units (un known) date) multiple unknown) locations using Ethibond suture to the fascia and the (unknown) (no (unknown) (unknown) and retracted (units ( unknown) date) laterally. unknown) Behind the rectus muscle there was a defect in the (unknown) (no (unknown) (unknown) and transferred (units (unknown) date) to postoperative unknown) care unit in stable condition. (unknown) (no (unknown) (unknown) application of (units (unknown) date) Dermabond and unknown) Steri-Strips. Sponge instrument count at the end (unknown) (no (unknown) (unknown) approximately 2 (units (unknown) date) cm. The hernia unknown) sac was excised. The peritoneum was closed with (unknown) (no (unknown) (unknown) bard patch (units (unk nown) date) antiadhesive unknown) surface down above the peritoneum. The mesh was (unknown) (no (unknown) (unknown) fascial defect (units (unknown) date) was closed over unknown) the mesh. The subcutaneous tissues were (unknown) (no (unknown) (unknown) fat containing (units (unknown) date) right spigelian unknown) hernia (unknown) (no (unknown) (unknown) induced and they (units (unknown) date) were intubated unknown) with an endotracheal tube. They received 2 g of (unknown) (no (unknown) (unknown) lower extremity (units (unknown) date) compression unknown) devices were applied. General anesthesia was (unknown) (no (unknown) (unknown) of the operation (units (unknown) date) was correct. unknown) Patient tolerated procedure well was extubated (unknown) (no (unknown) (unknown) open repair of (units (unknown) date) right spigelian unknown) (unknown) (no (unknown) (unknown) painful (units (unkno wn) date) spigelian hernia unknown) right upper quadrant (unknown) (no (unknown) (unknown) posterior sheath (units (unknown) date) with a fat unknown) containing hernia protruding the defect was (unknown) (no (unknown) (unknown) reapproximated (units (unknown) date) using 3 0 Vicry,l unknown) skin closed with 4 0 Monocryl followed by the (unknown) (no (unknown) (unknown) running vircyl. (units (unknown) date) The posterior unknown) sheath was then reinforced with a 3 inch circular Result panel 8 (unknown) (no (unknown) (unknown) (no value) (units (unk nown) date) unknown) (unknown) (no (unknown) (unknown) (no value) (units (unk nown) date) unknown) (unknown) (no (unknown) (unknown) (no value) (units (unk nown) date) unknown) (unknown) (no (unknown) (unknown) 02/05/22 (units (unkno wn) date) unknown) (unknown) (no (unknown) (unknown) 09:04 (units (unkno wn) date) unknown) (unknown) (no (unknown) (unknown) [place], [place] (units ( unknown) date) [id number] unknown) (unknown) (no (unknown) (unknown) Draft (units (unkno wn) date) unknown) (unknown) (no (unknown) (unknown) Hypertension (units (u nknown) date) unknown) (unknown) (no (unknown) (unknown) [facility] (units (unknown) date) unknown) (unknown) (no (unknown) (unknown) Surgery Office (units (unknown) date) Visit unknown) (unknown) (no (unknown) (unknown) (no value) (units (unk nown) date) unknown) (unknown) (no (unknown) (unknown) [phone] (units (unkn own) date) unknown) (unknown) (no (unknown) (unknown) 01/21/22 [Rx (units (u nknown) date) Confirmed 02/05/22] unknown) (unknown) (no (unknown) (unknown) 02/05/22 (units (unkno wn) date) unknown) (unknown) (no (unknown) (unknown) 04/12/19 [History (units (unknown) date) Confirmed 02/05/22] unknown) (unknown) (no (unknown) (unknown) Age/Sex: 31 / F (units (unknown) date) Date of Service: unknown) (unknown) (no (unknown) (unknown) Allergies (units (unkn own) date) unknown) (unknown) (no (unknown) (unknown) Asthma (units (unkno wn) date) unknown) (unknown) (no (unknown) (unknown) Attending Dr: (units ( unknown) date) Rishabh Baez MD unknown) (unknown) (no (unknown) (unknown) BMI 22.3 (units (un known) date) unknown) (unknown) (no (unknown) (unknown) COVID-19 virus (units (unknown) date) infection unknown) (-06/03/21) (unknown) (no (unknown) (unknown) Confirmed (units (unkn own) date) 02/05/22] unknown) (unknown) (no (unknown) (unknown) DAILY 04/10/19 (units (unknown) date) [History Confirmed unknown) 02/05/22] (unknown) (no (unknown) (unknown) : 1990 (units (unknown) date) Acct:[id number] unknown) (unknown) (no (unknown) (unknown) Dept at (units (unkno wn) date) . unknown) (unknown) (no (unknown) (unknown) Documented By: (units (unknown) date) Rishabh Baez MD unknown) 02/05/22 0904 (unknown) (no (unknown) (unknown) Family History (units (unknown) date) (Reviewed 12/30/21 unknown) @ 15:19 by Rishabh Baez MD) (unknown) (no (unknown) (unknown) Family/Other (units (u nknown) date) Cancer unknown) (unknown) (no (unknown) (unknown) Height 5 ft 4 (units (unknown) date) in unknown) (unknown) (no (unknown) (unknown) Hx of umbilical (units (unknown) date) hernia repair unknown) (04/18/19) (unknown) (no (unknown) (unknown) Intake (units (unkno wn) date) unknown) (unknown) (no (unknown) (unknown) Loc: [facility] (units (unkno wn) date) unknown) (unknown) (no (unknown) (unknown) Medical History (units (unknown) date) (Reviewed 01/21/22 unknown) @ 12:38 by Nandini Kc RN) (unknown) (no (unknown) (unknown) Medications (units (un known) date) unknown) (unknown) (no (unknown) (unknown) No Known Drug (units ( unknown) date) Allergies Allergy unknown) (Verified 02/05/22 09:04) (unknown) (no (unknown) (unknown) Oxygen Delivery (units (unknown) date) Method room air unknown) (unknown) (no (unknown) (unknown) PFSH (units (unkno wn) date) unknown) (unknown) (no (unknown) (unknown) Patient: (units (unkno wn) date) Demetra Young unknown) MR#: M (unknown) (no (unknown) (unknown) Pulse 76 (units (un known) date) unknown) (unknown) (no (unknown) (unknown) Pulse Oximetry (%) (units (unknown) date) 99 unknown) (unknown) (no (unknown) (unknown) Pulse Source (units (u nknown) date) Monitor unknown) (unknown) (no (unknown) (unknown) Reason For Visit (units (unknown) date) unknown) (unknown) (no (unknown) (unknown) Relief) 2 spray (units (unknown) date) NASAL DAILY unknown) 04/12/19 [History Confirmed 02/05/22] (unknown) (no (unknown) (unknown) Seasonal allergies (units (unknown) date) unknown) (unknown) (no (unknown) (unknown) Signed By: (units (unk nown) date) unknown) (unknown) (no (unknown) (unknown) Smoking Status: (units (unknown) date) Never smoker unknown) (unknown) (no (unknown) (unknown) Smoking Status: (units (unknown) date) Never smoker unknown) (unknown) (no (unknown) (unknown) Social History (units (unknown) date) (Reviewed 12/30/21 unknown) @ 15:19 by Rishabh Baez MD) (unknown) (no (unknown) (unknown) Status post (units (un known) date) unknown) (unknown) (no (unknown) (unknown) Status post (units (un known) date) appendectomy unknown) (unknown) (no (unknown) (unknown) Status post (units (un known) date) tonsillectomy unknown) (unknown) (no (unknown) (unknown) Surgical History (units (unknown) date) (Reviewed 01/21/22 unknown) @ 12:38 by Nandini Kc RN) (unknown) (no (unknown) (unknown) Temp 97.4 F L (units (unknown) date) unknown) (unknown) (no (unknown) (unknown) Temp Source (units (un known) date) Temporal Artery unknown) Scan (unknown) (no (unknown) (unknown) This note may have (units (unknown) date) been all or unknown) partially generated using voice recognition (unknown) (no (unknown) (unknown) Tobacco Status (units (unknown) date) unknown) (unknown) (no (unknown) (unknown) Visit Reasons: PO/ (units (unknown) date) OPEN ABDOMINAL WALL unknown) HERNIA REPAIR (unknown) (no (unknown) (unknown) Vitals (units (unkno wn) date) unknown) (unknown) (no (unknown) (unknown) Weight 130 lb (units (unknown) date) unknown) (unknown) (no (unknown) (unknown) acetaminophen 325 (units (unknown) date) mg capsule unknown) (Tylenol) 650 mg PO QID PRN #60 cap 01/21/22 [Rx (unknown) (no (unknown) (unknown) albuterol sulfate (units (unknown) date) 90 mcg/actuation unknown) aerosol inhaler 2 puff INHALATION Q4-6H PRN (unknown) (no (unknown) (unknown) alcohol intake: (units (unknown) date) current unknown) (unknown) (no (unknown) (unknown) fluticasone (units (un known) date) propionate 50 unknown) mcg/actuation nasal spray,suspension (Flonase Allergy (unknown) (no (unknown) (unknown) have occurred. If (units (unknown) date) there are any unknown) questions, please contact the Medical Records (unknown) (no (unknown) (unknown) household members: (units (unknown) date) spouse and unknown) children (unknown) (no (unknown) (unknown) ibuprofen 200 mg (units (unknown) date) tablet 400 mg PO unknown) Q6H #60 tab 01/21/22 [Rx Confirmed 02/05/22] (unknown) (no (unknown) (unknown) may occur. (units (unk nown) date) Occasional unknown) wrong-word or 'sound-alike' substitutions may have (unknown) (no (unknown) (unknown) multivitamin 1 cap (units (unknown) date) PO DAILY 04/12/19 unknown) [History Confirmed 02/05/22] (unknown) (no (unknown) (unknown) norethindrone 1.5 (units (unknown) date) mg-ethinyl unknown) estradiol 30 mcg(21)/iron 75 mg(7) tablet 1 tab PO (unknown) (no (unknown) (unknown) number of (units (unkn own) date) children: 2 unknown) (unknown) (no (unknown) (unknown) occurred due to (units (unknown) date) the inherent unknown) limitations of voice recognition software. Please (unknown) (no (unknown) (unknown) prochlorperazine (units (unknown) date) maleate 10 mg unknown) tablet (Compazine) 10 mg PO Q6H PRN #30 tab (unknown) (no (unknown) (unknown) read the note (units ( unknown) date) carefully and unknown) recognize, using context, where these substitutions (unknown) (no (unknown) (unknown) software. Although (units (unknown) date) every effort is unknown) made to edit content, product director errors Result panel 9 (unknown) (no (unknown) (unknown) (no value) (units (unk nown) date) unknown) (unknown) (no (unknown) (unknown) Medications: (units (u nknown) date) unknown) (unknown) (no (unknown) (unknown) (no value) (units (unk nown) date) unknown) (unknown) (no (unknown) (unknown) (no value) (units (unk nown) date) unknown) (unknown) (no (unknown) (unknown) 02/05/22 (units (unkno wn) date) unknown) (unknown) (no (unknown) (unknown) 02/05/22 0921 (units ( unknown) date) unknown) (unknown) (no (unknown) (unknown) 09:04 (units (unkno wn) date) unknown) (unknown) (no (unknown) (unknown) [place], [place] (units ( unknown) date) [id number] unknown) (unknown) (no (unknown) (unknown) Discontinued (units (u nknown) date) Reason: Patient no unknown) longer taking 5 mg PO Q6H PRN 30 tabs 0RF (unknown) (no (unknown) (unknown) Hypertension (units (u nknown) date) unknown) (unknown) (no (unknown) (unknown) [facility] (units (unknown) date) unknown) (unknown) (no (unknown) (unknown) Signed (units (unkno wn) date) unknown) (unknown) (no (unknown) (unknown) Surgery Office (units (unknown) date) Visit unknown) (unknown) (no (unknown) (unknown) (no value) (units (unk nown) date) unknown) (unknown) (no (unknown) (unknown) No lifting greater (units (unknown) date) than 20 lb for the unknown) next 2 weeks. Follow-up as needed (unknown) (no (unknown) (unknown) [id number] (units (unkn own) date) unknown) (unknown) (no (unknown) (unknown) 01/21/22 [Rx (units (u nknown) date) Confirmed 02/05/22] unknown) (unknown) (no (unknown) (unknown) 02/05/22 (units (unkno wn) date) unknown) (unknown) (no (unknown) (unknown) 04/12/19 [History (units (unknown) date) Confirmed 02/05/22] unknown) (unknown) (no (unknown) (unknown) Abdomen right (units ( unknown) date) upper quadrant unknown) incision clean dry intact. Small seroma. (unknown) (no (unknown) (unknown) Age/Sex: 31 / F (units (unknown) date) Date of Service: unknown) (unknown) (no (unknown) (unknown) Allergies (units (unkn own) date) unknown) (unknown) (no (unknown) (unknown) Approximately 30 (units (unknown) date) mL sterilely unknown) aspirated seroma (unknown) (no (unknown) (unknown) Assessment + Plan (units (unknown) date) unknown) (unknown) (no (unknown) (unknown) Assessment and (units (unknown) date) Plan unknown) (unknown) (no (unknown) (unknown) Asthma (units (unkno wn) date) unknown) (unknown) (no (unknown) (unknown) Attending Dr: (units ( unknown) date) Rishabh Baez MD unknown) (unknown) (no (unknown) (unknown) BMI 22.3 (units (un known) date) unknown) (unknown) (no (unknown) (unknown) COVID-19 virus (units (unknown) date) infection unknown) (-06/03/21) (unknown) (no (unknown) (unknown) Confirmed (units (unkn own) date) 02/05/22] unknown) (unknown) (no (unknown) (unknown) DAILY 04/10/19 (units (unknown) date) [History Confirmed unknown) 02/05/22] (unknown) (no (unknown) (unknown) : 1990 (units (unknown) date) Acct:[id number] unknown) (unknown) (no (unknown) (unknown) Dept at (units (unkno wn) date) . unknown) (unknown) (no (unknown) (unknown) Details: (units (unkno wn) date) unknown) (unknown) (no (unknown) (unknown) Discontinued (units (u nknown) date) unknown) (unknown) (no (unknown) (unknown) Documented By: (units (unknown) date) Rishabh Baez MD unknown) 02/05/22 0904 (unknown) (no (unknown) (unknown) Family History (units (unknown) date) (Reviewed 12/30/21 unknown) @ 15:19 by Rishabh Baez MD) (unknown) (no (unknown) (unknown) Family/Other (units (u nknown) date) Cancer unknown) (unknown) (no (unknown) (unknown) Feeling well and (units (unknown) date) improving unknown) consistently. No wound drainage no fever off all (unknown) (no (unknown) (unknown) General adult (units ( unknown) date) woman alert unknown) oriented no acute distress (unknown) (no (unknown) (unknown) HPI (units (unkno wn) date) unknown) (unknown) (no (unknown) (unknown) Height 5 ft 4 (units (unknown) date) in unknown) (unknown) (no (unknown) (unknown) Hx of umbilical (units (unknown) date) hernia repair unknown) (04/18/19) (unknown) (no (unknown) (unknown) Intake (units (unkno wn) date) unknown) (unknown) (no (unknown) (unknown) Loc: [facility] (units (unkno wn) date) unknown) (unknown) (no (unknown) (unknown) Medical History (units (unknown) date) (Reviewed 01/21/22 unknown) @ 12:38 by Nandini Kc RN) (unknown) (no (unknown) (unknown) Medications (units (un known) date) unknown) (unknown) (no (unknown) (unknown) No Known Drug (units ( unknown) date) Allergies Allergy unknown) (Verified 02/05/22 09:04) (unknown) (no (unknown) (unknown) Objective (units (unkn own) date) unknown) (unknown) (no (unknown) (unknown) Oxygen Delivery (units (unknown) date) Method room air unknown) (unknown) (no (unknown) (unknown) PFSH (units (unkno wn) date) unknown) (unknown) (no (unknown) (unknown) Patient: (units (unkno wn) date) Demetra Young unknown) MR#: M (unknown) (no (unknown) (unknown) Pulse 76 (units (un known) date) unknown) (unknown) (no (unknown) (unknown) Pulse Oximetry (%) (units (unknown) date) 99 unknown) (unknown) (no (unknown) (unknown) Pulse Source (units (u nknown) date) Monitor unknown) (unknown) (no (unknown) (unknown) Reason For Visit (units (unknown) date) unknown) (unknown) (no (unknown) (unknown) Relief) 2 spray (units (unknown) date) NASAL DAILY unknown) 04/12/19 [History Confirmed 02/05/22] (unknown) (no (unknown) (unknown) Seasonal allergies (units (unknown) date) unknown) (unknown) (no (unknown) (unknown) Signed By: (units (unk nown) date) <Electronically unknown) signed by Rishabh Baez MD> (unknown) (no (unknown) (unknown) Smoking Status: (units (unknown) date) Never smoker unknown) (unknown) (no (unknown) (unknown) Smoking Status: (units (unknown) date) Never smoker unknown) (unknown) (no (unknown) (unknown) Social History (units (unknown) date) (Reviewed 12/30/21 unknown) @ 15:19 by Rishabh Baez MD) (unknown) (no (unknown) (unknown) Status post (units (un known) date) unknown) (unknown) (no (unknown) (unknown) Status post (units (un known) date) appendectomy unknown) (unknown) (no (unknown) (unknown) Status post (units (un known) date) tonsillectomy unknown) (unknown) (no (unknown) (unknown) Subjective-follow- (units (unknown) date) up 2 weeks after an unknown) open right spigelian hernia repair. (unknown) (no (unknown) (unknown) Surgical History (units (unknown) date) (Reviewed 01/21/22 unknown) @ 12:38 by Nandini Kc RN) (unknown) (no (unknown) (unknown) Temp 97.4 F L (units (unknown) date) unknown) (unknown) (no (unknown) (unknown) Temp Source (units (un known) date) Temporal Artery unknown) Scan (unknown) (no (unknown) (unknown) [age] (units (unk nown) date) year-old woman 1 unknown) weeks status post open right spigelian hernia (unknown) (no (unknown) (unknown) This note may have (units (unknown) date) been all or unknown) partially generated using voice recognition (unknown) (no (unknown) (unknown) Tobacco Status (units (unknown) date) unknown) (unknown) (no (unknown) (unknown) Visit Reasons: PO/ (units (unknown) date) OPEN ABDOMINAL WALL unknown) HERNIA REPAIR (unknown) (no (unknown) (unknown) Vitals (units (unkno wn) date) unknown) (unknown) (no (unknown) (unknown) Weight 130 lb (units (unknown) date) unknown) (unknown) (no (unknown) (unknown) acetaminophen 325 (units (unknown) date) mg capsule unknown) (Tylenol) 650 mg PO QID PRN #60 cap 01/21/22 [Rx (unknown) (no (unknown) (unknown) albuterol sulfate (units (unknown) date) 90 mcg/actuation unknown) aerosol inhaler 2 puff INHALATION Q4-6H PRN (unknown) (no (unknown) (unknown) alcohol intake: (units (unknown) date) current unknown) (unknown) (no (unknown) (unknown) fluticasone (units (un known) date) propionate 50 unknown) mcg/actuation nasal spray,suspension (Flonase Allergy (unknown) (no (unknown) (unknown) have occurred. If (units (unknown) date) there are any unknown) questions, please contact the Medical Records (unknown) (no (unknown) (unknown) hernia recurrence. (units (unknown) date) No evidence of unknown) hernia recurrence or surgical site infection. (unknown) (no (unknown) (unknown) household members: (units (unknown) date) spouse and unknown) children (unknown) (no (unknown) (unknown) ibuprofen 200 mg (units (unknown) date) tablet 400 mg PO unknown) Q6H #60 tab 01/21/22 [Rx Confirmed 02/05/22] (unknown) (no (unknown) (unknown) may occur. (units (unk nown) date) Occasional unknown) wrong-word or 'sound-alike' substitutions may have (unknown) (no (unknown) (unknown) multivitamin 1 cap (units (unknown) date) PO DAILY 04/12/19 unknown) [History Confirmed 02/05/22] (unknown) (no (unknown) (unknown) narcotics. Feels (units (unknown) date) a slight fullness unknown) at the incision (unknown) (no (unknown) (unknown) norethindrone 1.5 (units (unknown) date) mg-ethinyl unknown) estradiol 30 mcg(21)/iron 75 mg(7) tablet 1 tab PO (unknown) (no (unknown) (unknown) number of (units (unkn own) date) children: 2 unknown) (unknown) (no (unknown) (unknown) occurred due to (units (unknown) date) the inherent unknown) limitations of voice recognition software. Please (unknown) (no (unknown) (unknown) oxycodone (units (unkn own) date) unknown) (unknown) (no (unknown) (unknown) pain (units (unkno wn) date) unknown) (unknown) (no (unknown) (unknown) prochlorperazine (units (unknown) date) maleate 10 mg unknown) tablet (Compazine) 10 mg PO Q6H PRN #30 tab (unknown) (no (unknown) (unknown) read the note (units ( unknown) date) carefully and unknown) recognize, using context, where these substitutions (unknown) (no (unknown) (unknown) repair. She is (units (unknown) date) doing well. Small unknown) sterile seroma aspirated. No evidence of (unknown) (no (unknown) (unknown) software. Although (units (unknown) date) every effort is unknown) made to edit content, product director errors Result panel 10 (unknown) (no (unknown) (unknown) (no value) (units (unk nown) date) unknown) (unknown) (no (unknown) (unknown) Date of Service: (units (unknown) date) 04/02/22 unknown) (unknown) (no (unknown) (unknown) (no value) (units (unk nown) date) unknown) (unknown) (no (unknown) (unknown) 1 cap PO DAILY (units (unknown) date) unknown) (unknown) (no (unknown) (unknown) 1 tab PO DAILY (units (unknown) date) unknown) (unknown) (no (unknown) (unknown) 10 mg PO Q6H PRN (units (unknown) date) (Reason: nausea and unknown) vomiting) Qty: 30 0RF (unknown) (no (unknown) (unknown) 2 puff INHALATION (units (unknown) date) Q4-6H PRN (Reason: unknown) asthma) (unknown) (no (unknown) (unknown) 2 spray NASAL (units ( unknown) date) DAILY unknown) (unknown) (no (unknown) (unknown) 400 mg PO Q6H Qty: (units (unknown) date) 60 0RF unknown) (unknown) (no (unknown) (unknown) 650 mg PO QID PRN (units (unknown) date) (Reason: pain) Qty: unknown) 60 0RF (unknown) (no (unknown) (unknown) Allergies (units (unkn own) date) unknown) (unknown) (no (unknown) (unknown) Emergency Report (units (unknown) date) unknown) (unknown) (no (unknown) (unknown) Home Medications (units (unknown) date) unknown) (unknown) (no (unknown) (unknown) Hypertension (units (u nknown) date) unknown) (unknown) (no (unknown) (unknown) [facility] (units (unknown) date) [address] [place] [address] unknown) [place] [address] (unknown) (no (unknown) (unknown) Previous Rx's (units ( unknown) date) unknown) (unknown) (no (unknown) (unknown) (no value) (units (unk nown) date) unknown) (unknown) (no (unknown) (unknown) acetaminophen (units ( unknown) date) [Tylenol] 325 mg unknown) capsule (unknown) (no (unknown) (unknown) albuterol sulfate (units (unknown) date) 90 mcg/actuation unknown) HFA aerosol inhaler (unknown) (no (unknown) (unknown) fluticasone (units (un known) date) propionate [Flonase unknown) Allergy Relief] 50 mcg/actuation (unknown) (no (unknown) (unknown) ibuprofen 200 mg (units (unknown) date) tablet unknown) (unknown) (no (unknown) (unknown) multivitamin (units (u nknown) date) capsule unknown) (unknown) (no (unknown) (unknown) norethindrone-e.es (units (unknown) date) tradiol-iron 1.5 unknown) mg-30 mcg (21)/75 mg (7) tablet (unknown) (no (unknown) (unknown) prochlorperazine (units (unknown) date) maleate [Compazine] unknown) 10 mg tablet (unknown) (no (unknown) (unknown) Medication (units (unk nown) date) Instructions unknown) Recorded (unknown) (no (unknown) (unknown) Medication (units (unk nown) date) Instructions unknown) Recorded Confirmed (unknown) (no (unknown) (unknown) (Tylenol) (units (unkn own) date) unknown) (unknown) (no (unknown) (unknown) [id number] (units (unkn own) date) unknown) (unknown) (no (unknown) (unknown) 02/05/22 (units (unkno wn) date) unknown) (unknown) (no (unknown) (unknown) Age/Sex: 32 / F (units (unknown) date) unknown) (unknown) (no (unknown) (unknown) Allergy/AdvReac (units (unknown) date) Type Severity unknown) Reaction Status Date / Time (unknown) (no (unknown) (unknown) Asthma (units (unkno wn) date) unknown) (unknown) (no (unknown) (unknown) COVID-19 virus (units (unknown) date) infection unknown) (-06/03/21) (unknown) (no (unknown) (unknown) Justine Wright MD (units (unknown) date) [Primary Care unknown) Provider] - (unknown) (no (unknown) (unknown) : 1990 (units (unknown) date) Acct:[id number] unknown) (unknown) (no (unknown) (unknown) Departure (units (unkn own) date) unknown) (unknown) (no (unknown) (unknown) Discharge Plan (units (unknown) date) unknown) (unknown) (no (unknown) (unknown) ER Physician: (units ( unknown) date) Willy Ventura D.O. unknown) (unknown) (no (unknown) (unknown) Family History (units (unknown) date) (Reviewed 12/30/21 unknown) @ 15:19 by Rishabh Baez MD) (unknown) (no (unknown) (unknown) Family/Other (units (u nknown) date) Cancer unknown) (unknown) (no (unknown) (unknown) General (units (unkno wn) date) unknown) (unknown) (no (unknown) (unknown) HPI - Abdominal (units (unknown) date) Pain unknown) (unknown) (no (unknown) (unknown) Hx of umbilical (units (unknown) date) hernia repair unknown) (04/18/19) (unknown) (no (unknown) (unknown) Medical History (units (unknown) date) (Reviewed 01/21/22 unknown) @ 12:38 by Nandini Kc RN) (unknown) (no (unknown) (unknown) No Action (units (unkn own) date) unknown) (unknown) (no (unknown) (unknown) No Known Drug (units ( unknown) date) Allergies Allergy unknown) Verified 02/05/22 09:04 (unknown) (no (unknown) (unknown) Patient History (units (unknown) date) unknown) (unknown) (no (unknown) (unknown) Patient: (units (unkno wn) date) Demetra Young unknown) MR#: M (unknown) (no (unknown) (unknown) Prescriptions: (units (unknown) date) unknown) (unknown) (no (unknown) (unknown) Referrals: (units (unk nown) date) unknown) (unknown) (no (unknown) (unknown) Related Data (units (u nknown) date) unknown) (unknown) (no (unknown) (unknown) Relief) (units (unkno wn) date) unknown) (unknown) (no (unknown) (unknown) Seasonal allergies (units (unknown) date) unknown) (unknown) (no (unknown) (unknown) Signed By: (units (unk nown) date) unknown) (unknown) (no (unknown) (unknown) Smoking Status: (units (unknown) date) Never smoker unknown) (unknown) (no (unknown) (unknown) Smoking Status: (units (unknown) date) Never smoker unknown) (unknown) (no (unknown) (unknown) Social History (units (unknown) date) (Reviewed 12/30/21 unknown) @ 15:19 by Rishabh Baez MD) (unknown) (no (unknown) (unknown) Stated Complaint: (units (unknown) date) Post ABD surgery unknown) severe pain (unknown) (no (unknown) (unknown) Status post (units (un known) date) unknown) (unknown) (no (unknown) (unknown) Status post (units (un known) date) appendectomy unknown) (unknown) (no (unknown) (unknown) Status post (units (un known) date) tonsillectomy unknown) (unknown) (no (unknown) (unknown) Substance Use (units ( unknown) date) Type: marijuana unknown) (unknown) (no (unknown) (unknown) Surgical History (units (unknown) date) (Reviewed 01/21/22 unknown) @ 12:38 by Nandini Kc RN) (unknown) (no (unknown) (unknown) Time Seen by (units (u nknown) date) Provider: 04/02/22 unknown) 18:13 (unknown) (no (unknown) (unknown) acetaminophen 325 (units (unknown) date) mg capsule 650 mg unknown) PO QID PRN pain #60 caps 01/21/22 (unknown) (no (unknown) (unknown) aerosol inhaler (units (unknown) date) unknown) (unknown) (no (unknown) (unknown) albuterol sulfate (units (unknown) date) 90 mcg/actuation 2 unknown) puff inhalation Q4-6H PRN asthma 04/12/19 (unknown) (no (unknown) (unknown) alcohol intake (units (unknown) date) frequency: unknown) holidays/special occasions only (unknown) (no (unknown) (unknown) alcohol intake: (units (unknown) date) current unknown) (unknown) (no (unknown) (unknown) estradiol 30 (units (u nknown) date) mcg(21)/iron 75 unknown) mg(7) (unknown) (no (unknown) (unknown) fluticasone (units (un known) date) propionate 50 2 unknown) spray intranasal DAILY 04/12/19 02/05/22 (unknown) (no (unknown) (unknown) household members: (units (unknown) date) spouse and unknown) children (unknown) (no (unknown) (unknown) ibuprofen 200 mg (units (unknown) date) tablet 400 mg PO unknown) Q6H #60 tabs 01/21/22 (unknown) (no (unknown) (unknown) mcg/actuation (units ( unknown) date) nasal unknown) (unknown) (no (unknown) (unknown) multivitamin 1 cap (units (unknown) date) PO DAILY 04/12/19 unknown) 02/05/22 (unknown) (no (unknown) (unknown) norethindrone 1.5 (units (unknown) date) mg-ethinyl 1 tab PO unknown) DAILY 04/10/19 02/05/22 (unknown) (no (unknown) (unknown) number of (units (unkn own) date) children: 2 unknown) (unknown) (no (unknown) (unknown) prochlorperazine (units (unknown) date) maleate 10 mg 10 mg unknown) PO Q6H PRN nausea and 01/21/22 (unknown) (no (unknown) (unknown) spray,suspension (units (unknown) date) unknown) (unknown) (no (unknown) (unknown) spray,suspension (units (unknown) date) (Flonase Allergy unknown) (unknown) (no (unknown) (unknown) tablet (units (unkno wn) date) unknown) (unknown) (no (unknown) (unknown) tablet (Compazine) (units (unknown) date) vomiting #30 tabs unknown) Result panel 11 (unknown) (no date) (unknown) (unknown) 0.9 % (unkn own) (unknown) (no date) (unknown) (unknown) 100 /uL (unkn own) (unknown) (no date) (unknown) (unknown) 100 /uL (unkn own) (unknown) (no date) (unknown) (unknown) 12.4 % (unkn own) (unknown) (no date) (unknown) (unknown) 13.7 g/dL (unkn own) (unknown) (no date) (unknown) (unknown) 1900 /uL (unkn own) (unknown) (no date) (unknown) (unknown) 2.1 % (unkn own) (unknown) (no date) (unknown) (unknown) 212 X10 3/uL (unkn own) (unknown) (no date) (unknown) (unknown) 300 /uL (unkn own) (unknown) (no date) (unknown) (unknown) 31.6 PG (unkn own) (unknown) (no date) (unknown) (unknown) 32.5 % (unkn own) (unknown) (no date) (unknown) (unknown) 34.6 % (unkn own) (unknown) (no date) (unknown) (unknown) 3500 /uL (unkn own) (unknown) (no date) (unknown) (unknown) 39.5 % (unkn own) (unknown) (no date) (unknown) (unknown) 4.33 X10 6/uL (unkn own) (unknown) (no date) (unknown) (unknown) 5.3 % (unkn own) (unknown) (no date) (unknown) (unknown) 59.2 % (unkn own) (unknown) (no date) (unknown) (unknown) 6.0 X10 3/uL (unkn own) (unknown) (no date) (unknown) (unknown) 91.2 fL (unkn own) Result panel 12 (unknown) (no (unknown) (unknown) (no value) (units (unk nown) date) unknown) (unknown) (no (unknown) (unknown) Date of Service: (units (unknown) date) 04/02/22 unknown) (unknown) (no (unknown) (unknown) (no value) (units (unk nown) date) unknown) (unknown) (no (unknown) (unknown) 04/02/22 18:32 (units (unknown) date) unknown) (unknown) (no (unknown) (unknown) 1 cap PO DAILY (units (unknown) date) unknown) (unknown) (no (unknown) (unknown) 1 tab PO DAILY (units (unknown) date) unknown) (unknown) (no (unknown) (unknown) 10 mg PO Q6H PRN (units (unknown) date) (Reason: nausea and unknown) vomiting) Qty: 30 0RF (unknown) (no (unknown) (unknown) 2 puff INHALATION (units (unknown) date) Q4-6H PRN (Reason: unknown) asthma) (unknown) (no (unknown) (unknown) 2 spray NASAL (units ( unknown) date) DAILY unknown) (unknown) (no (unknown) (unknown) 400 mg PO Q6H Qty: (units (unknown) date) 60 0RF unknown) (unknown) (no (unknown) (unknown) 650 mg PO QID PRN (units (unknown) date) (Reason: pain) Qty: unknown) 60 0RF (unknown) (no (unknown) (unknown) Allergies (units (unkn own) date) unknown) (unknown) (no (unknown) (unknown) ED Orders (units (unkn own) date) unknown) (unknown) (no (unknown) (unknown) Emergency Report (units (unknown) date) unknown) (unknown) (no (unknown) (unknown) Home Medications (units (unknown) date) unknown) (unknown) (no (unknown) (unknown) Hypertension (units (u nknown) date) unknown) (unknown) (no (unknown) (unknown) [facility] (units (unknown) date) [address] unknown) [place] [address] (unknown) (no (unknown) (unknown) Lab Results (units (un known) date) unknown) (unknown) (no (unknown) (unknown) Previous Rx's (units ( unknown) date) unknown) (unknown) (no (unknown) (unknown) Vital Signs - 8 hr (units (unknown) date) unknown) (unknown) (no (unknown) (unknown) (no value) (units (unk nown) date) unknown) (unknown) (no (unknown) (unknown) 04/02/22 (units (unkno wn) date) Range/Units unknown) (unknown) (no (unknown) (unknown) 18:32 (units (unkno wn) date) unknown) (unknown) (no (unknown) (unknown) acetaminophen (units ( unknown) date) [Tylenol] 325 mg unknown) capsule (unknown) (no (unknown) (unknown) albuterol sulfate (units (unknown) date) 90 mcg/actuation unknown) HFA aerosol inhaler (unknown) (no (unknown) (unknown) fluticasone (units (un known) date) propionate [Flonase unknown) Allergy Relief] 50 mcg/actuation (unknown) (no (unknown) (unknown) ibuprofen 200 mg (units (unknown) date) tablet unknown) (unknown) (no (unknown) (unknown) multivitamin (units (u nknown) date) capsule unknown) (unknown) (no (unknown) (unknown) norethindrone-e.es (units (unknown) date) tradiol-iron 1.5 unknown) mg-30 mcg (21)/75 mg (7) tablet (unknown) (no (unknown) (unknown) prochlorperazine (units (unknown) date) maleate [Compazine] unknown) 10 mg tablet (unknown) (no (unknown) (unknown) 04/02/22 (units (unkno wn) date) unknown) (unknown) (no (unknown) (unknown) Medication (units (unk nown) date) Instructions unknown) Recorded (unknown) (no (unknown) (unknown) Medication (units (unk nown) date) Instructions unknown) Recorded Confirmed (unknown) (no (unknown) (unknown) (Tylenol) (units (unkn own) date) unknown) (unknown) (no (unknown) (unknown) [id number] (units (unkn own) date) unknown) (unknown) (no (unknown) (unknown) 02/05/22 (units (unkno wn) date) unknown) (unknown) (no (unknown) (unknown) 04/02/22 18:32 (units (unknown) date) unknown) (unknown) (no (unknown) (unknown) 18:14 (units (unkno wn) date) unknown) (unknown) (no (unknown) (unknown) 32F nonsmoker (units ( unknown) date) unknown) (unknown) (no (unknown) (unknown) Age/Sex: 32 / F (units (unknown) date) unknown) (unknown) (no (unknown) (unknown) Allergy/AdvReac (units (unknown) date) Type Severity unknown) Reaction Status Date / Time (unknown) (no (unknown) (unknown) Asthma (units (unkno wn) date) unknown) (unknown) (no (unknown) (unknown) Baso # (Auto) 100 (units (unknown) date) (0-100) /uL unknown) (unknown) (no (unknown) (unknown) Baso % (Auto) 0.9 (units (unknown) date) (0-2) % unknown) (unknown) (no (unknown) (unknown) Blood Pressure (units (unknown) date) 130/74 04/02/22 unknown) 18:14 (unknown) (no (unknown) (unknown) Blood Pressure (units (unknown) date) 130/74 unknown) (unknown) (no (unknown) (unknown) COVID-19 virus (units (unknown) date) infection unknown) (-06/03/21) (unknown) (no (unknown) (unknown) Justine Wright MD (units (unknown) date) [Primary Care unknown) Provider] - (unknown) (no (unknown) (unknown) Chief Complaint: (units (unknown) date) Abdominal Pain unknown) (unknown) (no (unknown) (unknown) Complete Blood (units (unknown) date) Count AUTO DIFF unknown) Stat (unknown) (no (unknown) (unknown) Comprehensive (units ( unknown) date) Metabolic Panel unknown) Stat (unknown) (no (unknown) (unknown) Course (units (unkno wn) date) unknown) (unknown) (no (unknown) (unknown) : 1990 (units (unknown) date) Acct:[id number] unknown) (unknown) (no (unknown) (unknown) Departure (units (unkn own) date) unknown) (unknown) (no (unknown) (unknown) Discharge Plan (units (unknown) date) unknown) (unknown) (no (unknown) (unknown) ER Physician: (units ( unknown) date) Willy Ventura D.O. unknown) (unknown) (no (unknown) (unknown) Eos # (Auto) 100 (units (unknown) date) (0-450) /uL unknown) (unknown) (no (unknown) (unknown) Eos % (Auto) 2.1 (units (unknown) date) (2-4) % unknown) (unknown) (no (unknown) (unknown) Exam (units (unkno wn) date) unknown) (unknown) (no (unknown) (unknown) Family History (units (unknown) date) (Reviewed 12/30/21 unknown) @ 15:19 by Rishabh Baez MD) (unknown) (no (unknown) (unknown) Family/Other (units (u nknown) date) Cancer unknown) (unknown) (no (unknown) (unknown) General (units (unkno wn) date) unknown) (unknown) (no (unknown) (unknown) GenericComposite[P (units (unknown) date) lt Count 212 unknown) (150-400) X10^3/uL ] (unknown) (no (unknown) (unknown) GenericComposite[R (units (unknown) date) BC 4.33 (4.0-5.2) unknown) X10^6/uL ] (unknown) (no (unknown) (unknown) GenericComposite[W (units (unknown) date) BC 6.0 (4.5-11.0) unknown) X10^3/uL ] (unknown) (no (unknown) (unknown) HPI - Abdominal (units (unknown) date) Pain unknown) (unknown) (no (unknown) (unknown) HPI narrative: (units (unknown) date) unknown) (unknown) (no (unknown) (unknown) Hct 39.5 (36-46) (units (unknown) date) % unknown) (unknown) (no (unknown) (unknown) Hgb 13.7 (units (unkn own) date) (12.0-16.0) g/dL unknown) (unknown) (no (unknown) (unknown) History of Present (units (unknown) date) Illness unknown) (unknown) (no (unknown) (unknown) Hx of umbilical (units (unknown) date) hernia repair unknown) (04/18/19) (unknown) (no (unknown) (unknown) Initial Vital (units ( unknown) date) Signs unknown) (unknown) (no (unknown) (unknown) Initial Vital (units ( unknown) date) Signs: unknown) (unknown) (no (unknown) (unknown) Lab Data (units (unkno wn) date) unknown) (unknown) (no (unknown) (unknown) Labs: (units (unkno wn) date) unknown) (unknown) (no (unknown) (unknown) Lactate (Lactic (units (unknown) date) Acid) Stat unknown) (unknown) (no (unknown) (unknown) Lipase Stat (units (un known) date) unknown) (unknown) (no (unknown) (unknown) Lymph # (Auto) (units (unknown) date) 1900 (0385-2212) unknown) /uL (unknown) (no (unknown) (unknown) Lymph % (Auto) (units (unknown) date) 32.5 (25-40) % unknown) (unknown) (no (unknown) (unknown) MCH 31.6 (26-34) (units (unknown) date) PG unknown) (unknown) (no (unknown) (unknown) MCHC 34.6 (units (unk nown) date) (30-36) % unknown) (unknown) (no (unknown) (unknown) MCV 91.2 (units (unkn own) date) (80-100) fL unknown) (unknown) (no (unknown) (unknown) MDM - Abdominal (units (unknown) date) Pain unknown) (unknown) (no (unknown) (unknown) Medical History (units (unknown) date) (Reviewed 01/21/22 unknown) @ 12:38 by Nandini Kc RN) (unknown) (no (unknown) (unknown) [place] # (Auto) 300 (units (unknown) date) (0-900) /uL unknown) (unknown) (no (unknown) (unknown) [place] % (Auto) 5.3 (units (unknown) date) (3-14) % unknown) (unknown) (no (unknown) (unknown) Neut # (Auto) (units ( unknown) date) 3500 (5549-1543) unknown) /uL (unknown) (no (unknown) (unknown) Neut % (Auto) (units ( unknown) date) 59.2 (50-75) % unknown) (unknown) (no (unknown) (unknown) No Action (units (unkn own) date) unknown) (unknown) (no (unknown) (unknown) No Known Drug (units ( unknown) date) Allergies Allergy unknown) Verified 02/05/22 09:04 (unknown) (no (unknown) (unknown) Ordered: (units (unkno wn) date) unknown) (unknown) (no (unknown) (unknown) Orders (units (unkno wn) date) unknown) (unknown) (no (unknown) (unknown) Oxygen Delivery (units (unknown) date) Method 04/02/22 unknown) 18:14 (unknown) (no (unknown) (unknown) Oxygen Delivery (units (unknown) date) Method Room Air unknown) (unknown) (no (unknown) (unknown) Patient History (units (unknown) date) unknown) (unknown) (no (unknown) (unknown) Patient: (units (unkno wn) date) Demetra Young unknown) MR#: M (unknown) (no (unknown) (unknown) Prescriptions: (units (unknown) date) unknown) (unknown) (no (unknown) (unknown) Pulse Oximetry (units (unknown) date) 100 04/02/22 unknown) 18:14 (unknown) (no (unknown) (unknown) Pulse Oximetry 100 (units (unknown) date) unknown) (unknown) (no (unknown) (unknown) Pulse Rate 67 (units (unknown) date) 04/02/22 18:14 unknown) (unknown) (no (unknown) (unknown) Pulse Rate 67 (units ( unknown) date) unknown) (unknown) (no (unknown) (unknown) RDW 12.4 (units (unkn own) date) (11.6-14.8) % unknown) (unknown) (no (unknown) (unknown) Referrals: (units (unk nown) date) unknown) (unknown) (no (unknown) (unknown) Related Data (units (u nknown) date) unknown) (unknown) (no (unknown) (unknown) Relief) (units (unkno wn) date) unknown) (unknown) (no (unknown) (unknown) Respiratory Rate (units (unknown) date) 20 04/02/22 18:14 unknown) (unknown) (no (unknown) (unknown) Respiratory Rate (units (unknown) date) 20 unknown) (unknown) (no (unknown) (unknown) Result diagrams: (units (unknown) date) unknown) (unknown) (no (unknown) (unknown) Seasonal allergies (units (unknown) date) unknown) (unknown) (no (unknown) (unknown) Signed By: (units (unk nown) date) unknown) (unknown) (no (unknown) (unknown) Smoking Status: (units (unknown) date) Never smoker unknown) (unknown) (no (unknown) (unknown) Smoking Status: (units (unknown) date) Never smoker unknown) (unknown) (no (unknown) (unknown) Social History (units (unknown) date) (Reviewed 12/30/21 unknown) @ 15:19 by Rishabh Baez MD) (unknown) (no (unknown) (unknown) Sodium Chloride (units (unknown) date) (Normal Saline unknown) 0.9%) 1,000 mls @ 150 mls/hr IV CONT RYAN (unknown) (no (unknown) (unknown) Stated Complaint: (units (unknown) date) Post ABD surgery unknown) severe pain (unknown) (no (unknown) (unknown) Status post (units (un known) date) unknown) (unknown) (no (unknown) (unknown) Status post (units (un known) date) appendectomy unknown) (unknown) (no (unknown) (unknown) Status post (units (un known) date) tonsillectomy unknown) (unknown) (no (unknown) (unknown) Substance Use (units ( unknown) date) Type: marijuana unknown) (unknown) (no (unknown) (unknown) Surgical History (units (unknown) date) (Reviewed 01/21/22 unknown) @ 12:38 by Nandini Kc RN) (unknown) (no (unknown) (unknown) Temperature 98.3 (units (unknown) date) F 04/02/22 18:14 unknown) (unknown) (no (unknown) (unknown) Temperature 98.3 F (units (unknown) date) unknown) (unknown) (no (unknown) (unknown) Time Seen by (units (u nknown) date) Provider: 04/02/22 unknown) 18:13 (unknown) (no (unknown) (unknown) Vital Signs (units (un known) date) unknown) (unknown) (no (unknown) (unknown) Vital signs: (units (u nknown) date) unknown) (unknown) (no (unknown) (unknown) [Embedded Image (units (unknown) date) Not Available] unknown) (unknown) (no (unknown) (unknown) acetaminophen 325 (units (unknown) date) mg capsule 650 mg unknown) PO QID PRN pain #60 caps 01/21/22 (unknown) (no (unknown) (unknown) aerosol inhaler (units (unknown) date) unknown) (unknown) (no (unknown) (unknown) albuterol sulfate (units (unknown) date) 90 mcg/actuation 2 unknown) puff inhalation Q4-6H PRN asthma 04/12/19 (unknown) (no (unknown) (unknown) alcohol intake (units (unknown) date) frequency: unknown) holidays/special occasions only (unknown) (no (unknown) (unknown) alcohol intake: (units (unknown) date) current unknown) (unknown) (no (unknown) (unknown) estradiol 30 (units (u nknown) date) mcg(21)/iron 75 unknown) mg(7) (unknown) (no (unknown) (unknown) fluticasone (units (un known) date) propionate 50 2 unknown) spray intranasal DAILY 04/12/19 02/05/22 (unknown) (no (unknown) (unknown) household members: (units (unknown) date) spouse and unknown) children (unknown) (no (unknown) (unknown) ibuprofen 200 mg (units (unknown) date) tablet 400 mg PO unknown) Q6H #60 tabs 01/21/22 (unknown) (no (unknown) (unknown) mcg/actuation (units ( unknown) date) nasal unknown) (unknown) (no (unknown) (unknown) multivitamin 1 cap (units (unknown) date) PO DAILY 04/12/19 unknown) 02/05/22 (unknown) (no (unknown) (unknown) norethindrone 1.5 (units (unknown) date) mg-ethinyl 1 tab PO unknown) DAILY 04/10/19 02/05/22 (unknown) (no (unknown) (unknown) number of (units (unkn own) date) children: 2 unknown) (unknown) (no (unknown) (unknown) prochlorperazine (units (unknown) date) maleate 10 mg 10 mg unknown) PO Q6H PRN nausea and 01/21/22 (unknown) (no (unknown) (unknown) spray,suspension (units (unknown) date) unknown) (unknown) (no (unknown) (unknown) spray,suspension (units (unknown) date) (Flonase Allergy unknown) (unknown) (no (unknown) (unknown) tablet (units (unkno wn) date) unknown) (unknown) (no (unknown) (unknown) tablet (Compazine) (units (unknown) date) vomiting #30 tabs unknown) Result panel 13 (unknown) (no (unknown) (unknown) (no value) (units (unk nown) date) unknown) (unknown) (no (unknown) (unknown) (no value) (units (unk nown) date) unknown) (unknown) (no (unknown) (unknown) [address] [place] [address] (units (unknown) date) unknown) (unknown) (no (unknown) (unknown) [place] (units ( unknown) date) [id number] unknown) (unknown) (no (unknown) (unknown) CT Scan Report (units (unknown) date) unknown) (unknown) (no (unknown) (unknown) [facility] (units (unknown) date) unknown) (unknown) (no (unknown) (unknown) Signed (units (unkno wn) date) unknown) (unknown) (no (unknown) (unknown) (no value) (units (unk nown) date) unknown) (unknown) (no (unknown) (unknown) 04/02/22 (units (unkno wn) date) unknown) (unknown) (no (unknown) (unknown) 1. Asymmetric (units ( unknown) date) prominence of unknown) right anterior abdominal wall muscle anterior to (unknown) (no (unknown) (unknown) 2. No acute (units (un known) date) inflammatory unknown) process is seen in abdomen or pelvis. No free fluid (unknown) (no (unknown) (unknown) ABDOMEN: (units (unkno wn) date) unknown) (unknown) (no (unknown) (unknown) Abdominal Nodes: (units (unknown) date) No retroperitoneal unknown) or mesenteric adenopathy by size criteria. (unknown) (no (unknown) (unknown) Adrenal Glands: (units (unknown) date) Unremarkable. unknown) (unknown) (no (unknown) (unknown) After the (units (unkn own) date) administration of unknown) intravenous contrast, axial sections acquired from (unknown) (no (unknown) (unknown) Approved by: Jacob (units (unknown) date) Elo Mota on unknown) 04/02/2022 at 19:54 (unknown) (no (unknown) (unknown) Biliary ducts: (units (unknown) date) Unremarkable. unknown) (unknown) (no (unknown) (unknown) Bladder: (units (unkno wn) date) Unremarkable. unknown) (unknown) (no (unknown) (unknown) Bones: No (units (unk nown) date) suspicious bony unknown) lesion. No acute vertebral body compression (unknown) (no (unknown) (unknown) COMPARISON: (units (un known) date) None. unknown) (unknown) (no (unknown) (unknown) Dictated by: Jacob (units (unknown) date) Elo Mota on unknown) 04/02/2022 at 19:49 (unknown) (no (unknown) (unknown) FINDINGS: (units (unkn own) date) unknown) (unknown) (no (unknown) (unknown) Gallbladder: (units (u nknown) date) Unremarkable. unknown) (unknown) (no (unknown) (unknown) Heart: No (units (unk nown) date) significant unknown) findings. (unknown) (no (unknown) (unknown) IMPRESSION: (units (un known) date) unknown) (unknown) (no (unknown) (unknown) INDICATIONS: (units (u nknown) date) severe RUQ pain, unknown) hernia repair in January (unknown) (no (unknown) (unknown) Image quality: (units (unknown) date) Excellent. unknown) (unknown) (no (unknown) (unknown) Kidneys and (units (un known) date) Ureters: unknown) Unremarkable. (unknown) (no (unknown) (unknown) Liver: There is (units (unknown) date) hepatomegaly, no unknown) discrete hepatic lesion.. (unknown) (no (unknown) (unknown) Lung bases: (units (un known) date) Unremarkable. unknown) (unknown) (no (unknown) (unknown) Miscellaneous: No (units (unknown) date) hernias are seen. unknown) (unknown) (no (unknown) (unknown) PELVIS: (units (unkno wn) date) unknown) (unknown) (no (unknown) (unknown) Pancreas: (units (unkn own) date) Unremarkable. unknown) (unknown) (no (unknown) (unknown) Pelvic Nodes: No (units (unknown) date) enlarged lymph unknown) nodes. (unknown) (no (unknown) (unknown) Pelvic Organs: (units (unknown) date) Unremarkable. unknown) (unknown) (no (unknown) (unknown) Peritoneum: No (units (unknown) date) abnormal unknown) intraperitoneal fluid. No free air. (unknown) (no (unknown) (unknown) Spleen: (units (unkno wn) date) Unremarkable. unknown) (unknown) (no (unknown) (unknown) Stomach and (units (un known) date) Bowel: There is unknown) no bowel obstruction. No gastric or small bowel (unknown) (no (unknown) (unknown) TECHNIQUE: (units (unk nown) date) unknown) (unknown) (no (unknown) (unknown) Ventral Wall: (units ( unknown) date) No hernias. unknown) Asymmetrically enlarged right anterior abdominal (unknown) (no (unknown) (unknown) Vessels: Aorta (units (unknown) date) and inferior vena unknown) cava are normal in size. (unknown) (no (unknown) (unknown) air. Mild (units (unk nown) date) constipation. unknown) (unknown) (no (unknown) (unknown) anterior to left (units (unknown) date) hepatic lobe is unknown) seen series 2, image 21 with overlying (unknown) (no (unknown) (unknown) bases to the (units (u nknown) date) pubic symphysis. unknown) Coronal and sagittal reformats were performed. (unknown) (no (unknown) (unknown) fat stranding is (units (unknown) date) seen in right unknown) lower quadrant abdomen. Mild fecal stasis in (unknown) (no (unknown) (unknown) hepatic lobe deep (units (unknown) date) to a surgical scar unknown) suggestive of postsurgical changes and (unknown) (no (unknown) (unknown) of mA and/or kV (units (unknown) date) according to unknown) patient size. (unknown) (no (unknown) (unknown) radiation dose (units (unknown) date) reduction, the unknown) following was used: automated exposure control, (unknown) (no (unknown) (unknown) scarring. (units (unkn own) date) unknown) (unknown) (no (unknown) (unknown) seen. No colonic (units (unknown) date) wall thickening. unknown) No abscess collection. (unknown) (no (unknown) (unknown) small (units (unkno wn) date) intramuscular unknown) hematoma. (unknown) (no (unknown) (unknown) thickening. (units (un known) date) Appendix is not unknown) definitively identified. No wall thickening or (unknown) (no (unknown) (unknown) Accession Number: (units (unknown) date) [id number] unknown) (unknown) (no (unknown) (unknown) Age/Sex: 32 / F (units (unknown) date) Date of Service: unknown) (unknown) (no (unknown) (unknown) : 1990 (units (unknown) date) Acct:[id number] unknown) (unknown) (no (unknown) (unknown) For (units (unkno wn) date) unknown) (unknown) (no (unknown) (unknown) Loc: ED (units (unkno wn) date) unknown) (unknown) (no (unknown) (unknown) [id number] (units (unk nown) date) unknown) (unknown) (no (unknown) (unknown) Ordering (units (unkno wn) date) Provider: unknown) Willy Ventura D.O. (unknown) (no (unknown) (unknown) PROCEDURE: CT (units (unknown) date) ABDOMEN PELVIS W unknown) CON (unknown) (no (unknown) (unknown) Patient: (units (unkno wn) date) Demetra Young C unknown) MR#: (unknown) (no (unknown) (unknown) Procedure: CT (units ( unknown) date) abdomen pelvis w unknown) con (unknown) (no (unknown) (unknown) adjustment (units (unk nown) date) unknown) (unknown) (no (unknown) (unknown) fracture. (units (unkn own) date) unknown) (unknown) (no (unknown) (unknown) mesenteric (units (unk nown) date) unknown) (unknown) (no (unknown) (unknown) or free (units (unkno wn) date) unknown) (unknown) (no (unknown) (unknown) possible (units (unkno wn) date) unknown) (unknown) (no (unknown) (unknown) surgical (units (unkno wn) date) unknown) (unknown) (no (unknown) (unknown) the colon is (units (u nknown) date) unknown) (unknown) (no (unknown) (unknown) the left (units (unkno wn) date) unknown) (unknown) (no (unknown) (unknown) the lung (units (unkno wn) date) unknown) (unknown) (no (unknown) (unknown) wall (units (unkno wn) date) unknown) (unknown) (no (unknown) (unknown) wall muscle (units (un known) date) unknown) Result panel 14 (unknown) (no (unknown) (unknown) (no value) (units (unk nown) date) unknown) (unknown) (no (unknown) (unknown) Date of Service: (units (unknown) date) 04/02/22 unknown) (unknown) (no (unknown) (unknown) (no value) (units (unk nown) date) unknown) (unknown) (no (unknown) (unknown) 04/02/22 18:32 (units (unknown) date) unknown) (unknown) (no (unknown) (unknown) 1 cap PO DAILY (units (unknown) date) unknown) (unknown) (no (unknown) (unknown) 1 tab PO DAILY (units (unknown) date) unknown) (unknown) (no (unknown) (unknown) 10 mg PO Q6H PRN (units (unknown) date) (Reason: nausea and unknown) vomiting) Qty: 30 0RF (unknown) (no (unknown) (unknown) 2 puff INHALATION (units (unknown) date) Q4-6H PRN (Reason: unknown) asthma) (unknown) (no (unknown) (unknown) 2 spray NASAL (units ( unknown) date) DAILY unknown) (unknown) (no (unknown) (unknown) 400 mg PO Q6H Qty: (units (unknown) date) 60 0RF unknown) (unknown) (no (unknown) (unknown) 650 mg PO QID PRN (units (unknown) date) (Reason: pain) Qty: unknown) 60 0RF (unknown) (no (unknown) (unknown) Allergies (units (unkn own) date) unknown) (unknown) (no (unknown) (unknown) ED Orders (units (unkn own) date) unknown) (unknown) (no (unknown) (unknown) Emergency Report (units (unknown) date) unknown) (unknown) (no (unknown) (unknown) Home Medications (units (unknown) date) unknown) (unknown) (no (unknown) (unknown) Hypertension (units (u nknown) date) unknown) (unknown) (no (unknown) (unknown) [facility] (units (unknown) date) [address] [place] [address] unknown) [place] [address] (unknown) (no (unknown) (unknown) Lab Results (units (un known) date) unknown) (unknown) (no (unknown) (unknown) Previous Rx's (units ( unknown) date) unknown) (unknown) (no (unknown) (unknown) Vital Signs - 8 hr (units (unknown) date) unknown) (unknown) (no (unknown) (unknown) (no value) (units (unk nown) date) unknown) (unknown) (no (unknown) (unknown) 04/02/22 (units (unkno wn) date) Range/Units unknown) (unknown) (no (unknown) (unknown) 18:32 (units (unkno wn) date) unknown) (unknown) (no (unknown) (unknown) acetaminophen (units ( unknown) date) [Tylenol] 325 mg unknown) capsule (unknown) (no (unknown) (unknown) albuterol sulfate (units (unknown) date) 90 mcg/actuation unknown) HFA aerosol inhaler (unknown) (no (unknown) (unknown) fluticasone (units (un known) date) propionate [Flonase unknown) Allergy Relief] 50 mcg/actuation (unknown) (no (unknown) (unknown) ibuprofen 200 mg (units (unknown) date) tablet unknown) (unknown) (no (unknown) (unknown) multivitamin (units (u nknown) date) capsule unknown) (unknown) (no (unknown) (unknown) norethindrone-e.es (units (unknown) date) tradiol-iron 1.5 unknown) mg-30 mcg (21)/75 mg (7) tablet (unknown) (no (unknown) (unknown) prochlorperazine (units (unknown) date) maleate [Compazine] unknown) 10 mg tablet (unknown) (no (unknown) (unknown) 04/02/22 (units (unkno wn) date) unknown) (unknown) (no (unknown) (unknown) Medication (units (unk nown) date) Instructions unknown) Recorded (unknown) (no (unknown) (unknown) Medication (units (unk nown) date) Instructions unknown) Recorded Confirmed (unknown) (no (unknown) (unknown) quadrant, (units (unkn own) date) decreased bowel unknown) sounds but present. Incision is clean, dry and inta (unknown) (no (unknown) (unknown) rales, or rhonchi. (units (unknown) date) unknown) (unknown) (no (unknown) (unknown) (Tylenol) (units (unkn own) date) unknown) (unknown) (no (unknown) (unknown) [id number] (units (unkn own) date) unknown) (unknown) (no (unknown) (unknown) 02/05/22 (units (unkno wn) date) unknown) (unknown) (no (unknown) (unknown) 04/02/22 18:32 (units (unknown) date) unknown) (unknown) (no (unknown) (unknown) 12 point review of (units (unknown) date) systems is negative unknown) except for those stated above (unknown) (no (unknown) (unknown) 18:14 (units (unkno wn) date) unknown) (unknown) (no (unknown) (unknown) 32F nonsmoker with (units (unknown) date) history of asthma unknown) and a relatively recent ventral hernia (unknown) (no (unknown) (unknown) Age/Sex: 32 / F (units (unknown) date) unknown) (unknown) (no (unknown) (unknown) Allergy/AdvReac (units (unknown) date) Type Severity unknown) Reaction Status Date / Time (unknown) (no (unknown) (unknown) Asthma (units (unkno wn) date) unknown) (unknown) (no (unknown) (unknown) BACK: Nontender (units (unknown) date) without deformity unknown) or crepitance. No flank tenderness. (unknown) (no (unknown) (unknown) Baso # (Auto) 100 (units (unknown) date) (0-100) /uL unknown) (unknown) (no (unknown) (unknown) Baso % (Auto) 0.9 (units (unknown) date) (0-2) % unknown) (unknown) (no (unknown) (unknown) Blood Pressure (units (unknown) date) 130/74 04/02/22 unknown) 18:14 (unknown) (no (unknown) (unknown) Blood Pressure (units (unknown) date) 130/74 unknown) (unknown) (no (unknown) (unknown) CARDIOVASCULAR: (units (unknown) date) Denies chest pain, unknown) palpitations, orthopnea, edema, (unknown) (no (unknown) (unknown) CARDIOVASCULAR: (units (unknown) date) Regular rate and unknown) rhythm without murmurs, gallops, or rubs. (unknown) (no (unknown) (unknown) COVID-19 virus (units (unknown) date) infection unknown) (-06/03/21) (unknown) (no (unknown) (unknown) Justine Wright MD (units (unknown) date) [Primary Care unknown) Provider] - (unknown) (no (unknown) (unknown) Chief Complaint: (units (unknown) date) Abdominal Pain unknown) (unknown) (no (unknown) (unknown) Complete Blood (units (unknown) date) Count AUTO DIFF unknown) Stat (unknown) (no (unknown) (unknown) Comprehensive (units ( unknown) date) Metabolic Panel unknown) Stat (unknown) (no (unknown) (unknown) Course (units (unkno wn) date) unknown) (unknown) (no (unknown) (unknown) : 1990 (units (unknown) date) Acct:[id number] unknown) (unknown) (no (unknown) (unknown) Departure (units (unkn own) date) unknown) (unknown) (no (unknown) (unknown) Discharge Plan (units (unknown) date) unknown) (unknown) (no (unknown) (unknown) ENT: Nose without (units (unknown) date) bleeding, purulent unknown) drainage. Throat without erythema, (unknown) (no (unknown) (unknown) ER Physician: (units ( unknown) date) Willy Ventura D.O. unknown) (unknown) (no (unknown) (unknown) EXTREMITIES: No (units (unknown) date) edema or joint unknown) tenderness. (unknown) (no (unknown) (unknown) EYES: Pupils equal (units (unknown) date) round and reactive. unknown) Extraocular motions intact. No scleral (unknown) (no (unknown) (unknown) Eos # (Auto) 100 (units (unknown) date) (0-450) /uL unknown) (unknown) (no (unknown) (unknown) Eos % (Auto) 2.1 (units (unknown) date) (2-4) % unknown) (unknown) (no (unknown) (unknown) Exam (units (unkno wn) date) unknown) (unknown) (no (unknown) (unknown) Exam Narrative: (units (unknown) date) unknown) (unknown) (no (unknown) (unknown) Family History (units (unknown) date) (Reviewed 04/02/22 unknown) @ 18:59 by Willy Ventura DO) (unknown) (no (unknown) (unknown) Family/Other (units (u nknown) date) Cancer unknown) (unknown) (no (unknown) (unknown) GASTROINTESTINAL: (units (unknown) date) See HPI unknown) (unknown) (no (unknown) (unknown) GASTROINTESTINAL: (units (unknown) date) Abdomen soft, unknown) significant pain on palpation of the right upper (unknown) (no (unknown) (unknown) GENERAL: [32] year (units (unknown) date) old patient appears unknown) stated age. Well-developed patient, in (unknown) (no (unknown) (unknown) : Denies (units (unk nown) date) dysuria, frequency, unknown) incontinence, hematuria, urinary retention. (unknown) (no (unknown) (unknown) General (units (unkno wn) date) unknown) (unknown) (no (unknown) (unknown) GenericComposite[P (units (unknown) date) lt Count 212 unknown) (150-400) X10^3/uL ] (unknown) (no (unknown) (unknown) GenericComposite[R (units (unknown) date) BC 4.33 (4.0-5.2) unknown) X10^6/uL ] (unknown) (no (unknown) (unknown) GenericComposite[W (units (unknown) date) BC 6.0 (4.5-11.0) unknown) X10^3/uL ] (unknown) (no (unknown) (unknown) HEAD: Atraumatic. (units (unknown) date) Normocephalic. unknown) (unknown) (no (unknown) (unknown) HEENT: Denies (units ( unknown) date) sinus pain, ear unknown) pain, sore throat, difficulty swallowing, (unknown) (no (unknown) (unknown) HPI - Abdominal (units (unknown) date) Pain unknown) (unknown) (no (unknown) (unknown) HPI narrative: (units (unknown) date) unknown) (unknown) (no (unknown) (unknown) Hct 39.5 (36-46) (units (unknown) date) % unknown) (unknown) (no (unknown) (unknown) Hgb 13.7 (units (unkn own) date) (12.0-16.0) g/dL unknown) (unknown) (no (unknown) (unknown) History of Present (units (unknown) date) Illness unknown) (unknown) (no (unknown) (unknown) Hx of umbilical (units (unknown) date) hernia repair unknown) (04/18/19) (unknown) (no (unknown) (unknown) Initial Vital (units ( unknown) date) Signs unknown) (unknown) (no (unknown) (unknown) Initial Vital (units ( unknown) date) Signs: unknown) (unknown) (no (unknown) (unknown) Lab Data (units (unkno wn) date) unknown) (unknown) (no (unknown) (unknown) Labs: (units (unkno wn) date) unknown) (unknown) (no (unknown) (unknown) Lactate (Lactic (units (unknown) date) Acid) Stat unknown) (unknown) (no (unknown) (unknown) Lipase Stat (units (un known) date) unknown) (unknown) (no (unknown) (unknown) Lymph # (Auto) (units (unknown) date) 1900 (3889-9626) unknown) /uL (unknown) (no (unknown) (unknown) Lymph % (Auto) (units (unknown) date) 32.5 (25-40) % unknown) (unknown) (no (unknown) (unknown) MCH 31.6 (26-34) (units (unknown) date) PG unknown) (unknown) (no (unknown) (unknown) MCHC 34.6 (units (unk nown) date) (30-36) % unknown) (unknown) (no (unknown) (unknown) MCV 91.2 (units (unkn own) date) (80-100) fL unknown) (unknown) (no (unknown) (unknown) MDM - Abdominal (units (unknown) date) Pain unknown) (unknown) (no (unknown) (unknown) MUSCULOSKELETAL: (units (unknown) date) denies weakness, unknown) joint pain, or bony pain (unknown) (no (unknown) (unknown) Medical History (units (unknown) date) (Reviewed 04/02/22 unknown) @ 18:59 by Willy Ventura DO) (unknown) (no (unknown) (unknown) [place] # (Auto) 300 (units (unknown) date) (0-900) /uL unknown) (unknown) (no (unknown) (unknown) [place] % (Auto) 5.3 (units (unknown) date) (3-14) % unknown) (unknown) (no (unknown) (unknown) NECK: Trachea (units ( unknown) date) midline. Non tender unknown) (unknown) (no (unknown) (unknown) NEURO: AOx3. (units (u nknown) date) unknown) (unknown) (no (unknown) (unknown) NEUROLOGIC: Denies (units (unknown) date) weakness, headache, unknown) numbness, change in speech, confusion, (unknown) (no (unknown) (unknown) Narrative (units (unkn own) date) unknown) (unknown) (no (unknown) (unknown) Narrative: (units (unk nown) date) unknown) (unknown) (no (unknown) (unknown) Neut # (Auto) (units ( unknown) date) 3500 (7703-1175) unknown) /uL (unknown) (no (unknown) (unknown) Neut % (Auto) (units ( unknown) date) 59.2 (50-75) % unknown) (unknown) (no (unknown) (unknown) No Action (units (unkn own) date) unknown) (unknown) (no (unknown) (unknown) No GENERAL: Denies (units (unknown) date) chills, fatigue, unknown) malaise, fever, sweats. (unknown) (no (unknown) (unknown) No Known Drug (units ( unknown) date) Allergies Allergy unknown) Verified 02/05/22 09:04 (unknown) (no (unknown) (unknown) Ordered: (units (unkno wn) date) unknown) (unknown) (no (unknown) (unknown) Orders (units (unkno wn) date) unknown) (unknown) (no (unknown) (unknown) Oxygen Delivery (units (unknown) date) Method 04/02/22 unknown) 18:14 (unknown) (no (unknown) (unknown) Oxygen Delivery (units (unknown) date) Method Room Air unknown) (unknown) (no (unknown) (unknown) PSYCHIATRIC: No (units (unknown) date) concerning unknown) psychosocial issues. (unknown) (no (unknown) (unknown) Patient History (units (unknown) date) unknown) (unknown) (no (unknown) (unknown) Patient: (units (unkno wn) date) Demetra Young C unknown) MR#: M (unknown) (no (unknown) (unknown) Prescriptions: (units (unknown) date) unknown) (unknown) (no (unknown) (unknown) Pulse Oximetry (units (unknown) date) 100 04/02/22 unknown) 18:14 (unknown) (no (unknown) (unknown) Pulse Oximetry 100 (units (unknown) date) unknown) (unknown) (no (unknown) (unknown) Pulse Rate 67 (units (unknown) date) 04/02/22 18:14 unknown) (unknown) (no (unknown) (unknown) Pulse Rate 67 (units ( unknown) date) unknown) (unknown) (no (unknown) (unknown) RDW 12.4 (units (unkn own) date) (11.6-14.8) % unknown) (unknown) (no (unknown) (unknown) RESPIRATORY: Clear (units (unknown) date) to auscultation. unknown) Breath sounds equal bilaterally. No wheezes, (unknown) (no (unknown) (unknown) RESPIRATORY: (units (u nknown) date) Denies dyspnea, unknown) cough, wheezing, hemoptysis, sputum. (unknown) (no (unknown) (unknown) Referrals: (units (unk nown) date) unknown) (unknown) (no (unknown) (unknown) Related Data (units (u nknown) date) unknown) (unknown) (no (unknown) (unknown) Relief) (units (unkno wn) date) unknown) (unknown) (no (unknown) (unknown) Respiratory Rate (units (unknown) date) 20 04/02/22 18:14 unknown) (unknown) (no (unknown) (unknown) Respiratory Rate (units (unknown) date) 20 unknown) (unknown) (no (unknown) (unknown) Result diagrams: (units (unknown) date) unknown) (unknown) (no (unknown) (unknown) Review of Systems (units (unknown) date) unknown) (unknown) (no (unknown) (unknown) SKIN: Denies rash, (units (unknown) date) skin lesions, or unknown) other (unknown) (no (unknown) (unknown) SKIN: No rash or (units (unknown) date) erythema of visible unknown) areas (unknown) (no (unknown) (unknown) Seasonal allergies (units (unknown) date) unknown) (unknown) (no (unknown) (unknown) Signed By: (units (unk nown) date) unknown) (unknown) (no (unknown) (unknown) Smoking Status: (units (unknown) date) Never smoker unknown) (unknown) (no (unknown) (unknown) Smoking Status: (units (unknown) date) Never smoker unknown) (unknown) (no (unknown) (unknown) Social History (units (unknown) date) (Reviewed 04/02/22 unknown) @ 18:59 by Willy Ventura DO) (unknown) (no (unknown) (unknown) Sodium Chloride (units (unknown) date) (Normal Saline unknown) 0.9%) 1,000 mls @ 150 mls/hr IV CONT RYAN (unknown) (no (unknown) (unknown) Stated Complaint: (units (unknown) date) Post ABD surgery unknown) severe pain (unknown) (no (unknown) (unknown) Status post (units (un known) date) unknown) (unknown) (no (unknown) (unknown) Status post (units (un known) date) appendectomy unknown) (unknown) (no (unknown) (unknown) Status post (units (un known) date) tonsillectomy unknown) (unknown) (no (unknown) (unknown) Substance Use (units ( unknown) date) Type: marijuana unknown) (unknown) (no (unknown) (unknown) Surgical History (units (unknown) date) (Reviewed 04/02/22 unknown) @ 18:59 by Willy Ventura DO) (unknown) (no (unknown) (unknown) Temperature 98.3 (units (unknown) date) F 04/02/22 18:14 unknown) (unknown) (no (unknown) (unknown) Temperature 98.3 F (units (unknown) date) unknown) (unknown) (no (unknown) (unknown) Time Seen by (units (u nknown) date) Provider: 04/02/22 unknown) 18:13 (unknown) (no (unknown) (unknown) Vital Signs (units (un known) date) unknown) (unknown) (no (unknown) (unknown) Vital signs: (units (u nknown) date) unknown) (unknown) (no (unknown) (unknown) [Embedded Image (units (unknown) date) Not Available] unknown) (unknown) (no (unknown) (unknown) acetaminophen 325 (units (unknown) date) mg capsule 650 mg unknown) PO QID PRN pain #60 caps 01/21/22 (unknown) (no (unknown) (unknown) aerosol inhaler (units (unknown) date) unknown) (unknown) (no (unknown) (unknown) albuterol sulfate (units (unknown) date) 90 mcg/actuation 2 unknown) puff inhalation Q4-6H PRN asthma 04/12/19 (unknown) (no (unknown) (unknown) alcohol intake (units (unknown) date) frequency: unknown) holidays/special occasions only (unknown) (no (unknown) (unknown) alcohol intake: (units (unknown) date) current unknown) (unknown) (no (unknown) (unknown) chills. She (units (u nknown) date) denies any change unknown) in bowel habits. She denies any specific or (unknown) (no (unknown) (unknown) ct no overlying (units (unknown) date) erythema, warmth, unknown) induration or fluctuance, nondistended. (unknown) (no (unknown) (unknown) dizziness. (units (unk nown) date) unknown) (unknown) (no (unknown) (unknown) drinking but (units (u nknown) date) states motion, unknown) palpation as well as deep breaths significantly (unknown) (no (unknown) (unknown) dysuria, frequency (units (unknown) date) or urgency unknown) (unknown) (no (unknown) (unknown) estradiol 30 (units (u nknown) date) mcg(21)/iron 75 unknown) mg(7) (unknown) (no (unknown) (unknown) fluticasone (units (un known) date) propionate 50 2 unknown) spray intranasal DAILY 04/12/19 02/05/22 (unknown) (no (unknown) (unknown) hernia repair. She (units (unknown) date) states that she had unknown) been feeling fine until about a week ago (unknown) (no (unknown) (unknown) household members: (units (unknown) date) spouse and unknown) children (unknown) (no (unknown) (unknown) ibuprofen 200 mg (units (unknown) date) tablet 400 mg PO unknown) Q6H #60 tabs 01/21/22 (unknown) (no (unknown) (unknown) icterus. No (units (un known) date) injection or unknown) drainage. (unknown) (no (unknown) (unknown) mcg/actuation (units ( unknown) date) nasal unknown) (unknown) (no (unknown) (unknown) memorable moment (units (unknown) date) that seems to have unknown) exacerbated the pain. She denies any (unknown) (no (unknown) (unknown) mild but has been (units (unknown) date) gradually unknown) worsening. Today she is been having severe pain (unknown) (no (unknown) (unknown) mild distress. (units (unknown) date) unknown) (unknown) (no (unknown) (unknown) multivitamin 1 cap (units (unknown) date) PO DAILY 04/12/19 unknown) 02/05/22 (unknown) (no (unknown) (unknown) norethindrone 1.5 (units (unknown) date) mg-ethinyl 1 tab PO unknown) DAILY 04/10/19 02/05/22 (unknown) (no (unknown) (unknown) number of (units (unkn own) date) children: 2 unknown) (unknown) (no (unknown) (unknown) particularly with (units (unknown) date) any motion. She unknown) denies any provocation with eating or (unknown) (no (unknown) (unknown) prochlorperazine (units (unknown) date) maleate 10 mg 10 mg unknown) PO Q6H PRN nausea and 01/21/22 (unknown) (no (unknown) (unknown) repair at our (units ( unknown) date) facility in January unknown) presents with severe pain in the region of her (unknown) (no (unknown) (unknown) seizures, (units (unkn own) date) incoordination. unknown) (unknown) (no (unknown) (unknown) spray,suspension (units (unknown) date) unknown) (unknown) (no (unknown) (unknown) spray,suspension (units (unknown) date) (Flonase Allergy unknown) (unknown) (no (unknown) (unknown) tablet (units (unkno wn) date) unknown) (unknown) (no (unknown) (unknown) tablet (Compazine) (units (unknown) date) vomiting #30 tabs unknown) (unknown) (no (unknown) (unknown) tonsillar (units (unkn own) date) hypertrophy or unknown) exudate. Airway patent. (unknown) (no (unknown) (unknown) when she started (units (unknown) date) noticing pain in unknown) her right upper quadrant which was initially (unknown) (no (unknown) (unknown) worsen the pain. (units (unknown) date) She denies any unknown) radiation of the pain. She is had no fever or Result panel 15 (unknown) (no date) (unknown) (unknown) > 60 mL/min (unkn own) (unknown) (no date) (unknown) (unknown) 0.5 mg/dL (unkn own) (unknown) (no date) (unknown) (unknown) 0.88 mg/dL (unkn own) (unknown) (no date) (unknown) (unknown) 0.9 mmol/L (unkn own) (unknown) (no date) (unknown) (unknown) 1.6 (units unknown) (unknown) (unknown) (no date) (unknown) (unknown) 102 mg/dL (unkn own) (unknown) (no date) (unknown) (unknown) 104 mmol/L (unkn own) (unknown) (no date) (unknown) (unknown) 138 mmol/L (unkn own) (unknown) (no date) (unknown) (unknown) 15 mg/dL (unkn own) (unknown) (no date) (unknown) (unknown) 16 IU/L (unkn own) (unknown) (no date) (unknown) (unknown) 17.0 (units unknown) (unknown) (unknown) (no date) (unknown) (unknown) 2.7 g/dL (unkn own) (unknown) (no date) (unknown) (unknown) 24 IU/L (unkn own) (unknown) (no date) (unknown) (unknown) 25 mmol/L (unkn own) (unknown) (no date) (unknown) (unknown) 264 U/L (unkn own) (unknown) (no date) (unknown) (unknown) 4.1 mmol/L (unkn own) (unknown) (no date) (unknown) (unknown) 4.4 g/dL (unkn own) (unknown) (no date) (unknown) (unknown) 50 U/L (unkn own) (unknown) (no date) (unknown) (unknown) 7.1 g/dL (unkn own) (unknown) (no date) (unknown) (unknown) 8.9 mg/dL (unkn own) Result panel 16 (unknown) (no (unknown) (unknown) (no value) (units (unk nown) date) unknown) (unknown) (no (unknown) (unknown) Date of Service: (units (unknown) date) 04/02/22 unknown) (unknown) (no (unknown) (unknown) (no value) (units (unk nown) date) unknown) (unknown) (no (unknown) (unknown) 04/02/22 18:32 (units (unknown) date) unknown) (unknown) (no (unknown) (unknown) 1 cap PO DAILY (units (unknown) date) unknown) (unknown) (no (unknown) (unknown) 1 tab PO DAILY (units (unknown) date) unknown) (unknown) (no (unknown) (unknown) 10 mg PO Q6H PRN (units (unknown) date) (Reason: nausea and unknown) vomiting) Qty: 30 0RF (unknown) (no (unknown) (unknown) 2 puff INHALATION (units (unknown) date) Q4-6H PRN (Reason: unknown) asthma) (unknown) (no (unknown) (unknown) 2 spray NASAL (units ( unknown) date) DAILY unknown) (unknown) (no (unknown) (unknown) 400 mg PO Q6H Qty: (units (unknown) date) 60 0RF unknown) (unknown) (no (unknown) (unknown) 650 mg PO QID PRN (units (unknown) date) (Reason: pain) Qty: unknown) 60 0RF (unknown) (no (unknown) (unknown) Allergies (units (unkn own) date) unknown) (unknown) (no (unknown) (unknown) Documented By: KF (units (unknown) date) unknown) (unknown) (no (unknown) (unknown) ED Orders (units (unkn own) date) unknown) (unknown) (no (unknown) (unknown) Emergency Report (units (unknown) date) unknown) (unknown) (no (unknown) (unknown) Home Medications (units (unknown) date) unknown) (unknown) (no (unknown) (unknown) Hypertension (units (u nknown) date) unknown) (unknown) (no (unknown) (unknown) [facility] (units (unknown) date) [address] unknown) [place] [id number] (unknown) (no (unknown) (unknown) Lab Results (units (un known) date) unknown) (unknown) (no (unknown) (unknown) Last Admin: (units (un known) date) 04/02/22 19:08 unknown) Dose: 0.5 mg (unknown) (no (unknown) (unknown) Last Admin: (units (un known) date) 04/02/22 19:08 unknown) Dose: 1,000 mls/hr (unknown) (no (unknown) (unknown) Last Admin: (units (un known) date) 04/02/22 19:08 unknown) Dose: 4 mg (unknown) (no (unknown) (unknown) Last Admin: (units (un known) date) 04/02/22 19:09 unknown) Dose: Not Given (unknown) (no (unknown) (unknown) Point of Care (units ( unknown) date) Testing unknown) (unknown) (no (unknown) (unknown) Previous Rx's (units ( unknown) date) unknown) (unknown) (no (unknown) (unknown) Stop: 04/02/22 (units (unknown) date) 19:00 unknown) (unknown) (no (unknown) (unknown) Stop: 04/02/22 (units (unknown) date) 19:58 unknown) (unknown) (no (unknown) (unknown) Urine Dip (units (unkn own) date) unknown) (unknown) (no (unknown) (unknown) Vital Signs - 8 hr (units (unknown) date) unknown) (unknown) (no (unknown) (unknown) (no value) (units (unk nown) date) unknown) (unknown) (no (unknown) (unknown) 04/02/22 04/02/22 (units (unknown) date) 04/02/22 unknown) Range/Units (unknown) (no (unknown) (unknown) 18:32 18:32 18:32 (units (unknown) date) unknown) (unknown) (no (unknown) (unknown) acetaminophen (units ( unknown) date) [Tylenol] 325 mg unknown) capsule (unknown) (no (unknown) (unknown) albuterol sulfate (units (unknown) date) 90 mcg/actuation unknown) HFA aerosol inhaler (unknown) (no (unknown) (unknown) fluticasone (units (un known) date) propionate [Flonase unknown) Allergy Relief] 50 mcg/actuation (unknown) (no (unknown) (unknown) ibuprofen 200 mg (units (unknown) date) tablet unknown) (unknown) (no (unknown) (unknown) multivitamin (units (u nknown) date) capsule unknown) (unknown) (no (unknown) (unknown) norethindrone-e.es (units (unknown) date) tradiol-iron 1.5 unknown) mg-30 mcg (21)/75 mg (7) tablet (unknown) (no (unknown) (unknown) prochlorperazine (units (unknown) date) maleate [Compazine] unknown) 10 mg tablet (unknown) (no (unknown) (unknown) 04/02/22 (units (unkno wn) date) unknown) (unknown) (no (unknown) (unknown) Medication (units (unk nown) date) Instructions unknown) Recorded (unknown) (no (unknown) (unknown) Medication (units (unk nown) date) Instructions unknown) Recorded Confirmed (unknown) (no (unknown) (unknown) quadrant, (units (unkn own) date) decreased bowel unknown) sounds but present. Incision is clean, dry and inta (unknown) (no (unknown) (unknown) rales, or rhonchi. (units (unknown) date) unknown) (unknown) (no (unknown) (unknown) (Tylenol) (units (unkn own) date) unknown) (unknown) (no (unknown) (unknown) [id number] (units (unkn own) date) unknown) (unknown) (no (unknown) (unknown) 02/05/22 (units (unkno wn) date) unknown) (unknown) (no (unknown) (unknown) 04/02/22 18:32 (units (unknown) date) unknown) (unknown) (no (unknown) (unknown) 04/02/22 18:59 (units (unknown) date) unknown) (unknown) (no (unknown) (unknown) 12 point review of (units (unknown) date) systems is negative unknown) except for those stated above (unknown) (no (unknown) (unknown) 18:09 (units (unkno wn) date) unknown) (unknown) (no (unknown) (unknown) 18:09 04/02/22 (units (unknown) date) unknown) (unknown) (no (unknown) (unknown) 18:14 04/02/22 (units (unknown) date) unknown) (unknown) (no (unknown) (unknown) 32F nonsmoker with (units (unknown) date) history of asthma unknown) and a relatively recent ventral hernia (unknown) (no (unknown) (unknown) ALT 16 (<35) (units (unknown) date) IU/L unknown) (unknown) (no (unknown) (unknown) AST 24 (14-36) (units (unknown) date) IU/L unknown) (unknown) (no (unknown) (unknown) Age/Sex: 32 / F (units (unknown) date) unknown) (unknown) (no (unknown) (unknown) Albumin 4.4 (units ( unknown) date) (3.5-5.0) g/dL unknown) (unknown) (no (unknown) (unknown) Albumin/Globulin (units (unknown) date) Ratio 1.6 unknown) (1.0-2.8) (unknown) (no (unknown) (unknown) Alkaline (units (unkno wn) date) Phosphatase 50 unknown) (38-126) U/L (unknown) (no (unknown) (unknown) Allergy/AdvReac (units (unknown) date) Type Severity unknown) Reaction Status Date / Time (unknown) (no (unknown) (unknown) Asthma (units (unkno wn) date) unknown) (unknown) (no (unknown) (unknown) BACK: Nontender (units (unknown) date) without deformity unknown) or crepitance. No flank tenderness. (unknown) (no (unknown) (unknown) BUN 15 (7-17) (units (unknown) date) mg/dL unknown) (unknown) (no (unknown) (unknown) BUN/Creatinine (units (unknown) date) Ratio 17.0 unknown) (6-22) (unknown) (no (unknown) (unknown) Baso # (Auto) 100 (units (unknown) date) (0-100) /uL unknown) (unknown) (no (unknown) (unknown) Baso % (Auto) 0.9 (units (unknown) date) (0-2) % unknown) (unknown) (no (unknown) (unknown) Bedside Urine (units ( unknown) date) Bilirubin - unknown) Negative (unknown) (no (unknown) (unknown) Bedside Urine (units ( unknown) date) Glucose Negative unknown) (unknown) (no (unknown) (unknown) Bedside Urine (units ( unknown) date) Ketone - unknown) Negative (unknown) (no (unknown) (unknown) Bedside Urine (units ( unknown) date) Leukocytes - unknown) Negative (unknown) (no (unknown) (unknown) Bedside Urine (units ( unknown) date) Nitrite - unknown) Negative (unknown) (no (unknown) (unknown) Bedside Urine (units ( unknown) date) Occult Blood - unknown) Negative (unknown) (no (unknown) (unknown) Bedside Urine (units ( unknown) date) Protein - unknown) Negative (unknown) (no (unknown) (unknown) Bedside Urine (units ( unknown) date) Urobilinogen - unknown) Negative (unknown) (no (unknown) (unknown) Bedside Urine pH (units (unknown) date) 6 unknown) (unknown) (no (unknown) (unknown) Blood Pressure (units (unknown) date) 130/74 04/02/22 unknown) 18:09 (unknown) (no (unknown) (unknown) Blood Pressure (units (unknown) date) 130/74 130/74 unknown) (unknown) (no (unknown) (unknown) CARDIOVASCULAR: (units (unknown) date) Denies chest pain, unknown) palpitations, orthopnea, edema, (unknown) (no (unknown) (unknown) CARDIOVASCULAR: (units (unknown) date) Regular rate and unknown) rhythm without murmurs, gallops, or rubs. (unknown) (no (unknown) (unknown) COVID-19 virus (units (unknown) date) infection unknown) (-06/03/21) (unknown) (no (unknown) (unknown) CT abdomen pelvis (units (unknown) date) w con Stat unknown) (unknown) (no (unknown) (unknown) Calcium 8.9 (units ( unknown) date) (8.4-10.2) mg/dL unknown) (unknown) (no (unknown) (unknown) Carbon Dioxide (units (unknown) date) 25 (22-32) unknown) mmol/L (unknown) (no (unknown) (unknown) Justine Wright MD (units (unknown) date) [Primary Care unknown) Provider] - (unknown) (no (unknown) (unknown) Chief Complaint: (units (unknown) date) Abdominal Pain unknown) (unknown) (no (unknown) (unknown) Chloride 104 (units (unknown) date) (98-107) mmol/L unknown) (unknown) (no (unknown) (unknown) Complete Blood (units (unknown) date) Count AUTO DIFF unknown) Stat (unknown) (no (unknown) (unknown) Comprehensive (units ( unknown) date) Metabolic Panel unknown) Stat (unknown) (no (unknown) (unknown) Course (units (unkno wn) date) unknown) (unknown) (no (unknown) (unknown) Creatinine 0.88 (units (unknown) date) (0.52-1.04) mg/dL unknown) (unknown) (no (unknown) (unknown) : 1990 (units (unknown) date) Acct:[id number] unknown) (unknown) (no (unknown) (unknown) Departure (units (unkn own) date) unknown) (unknown) (no (unknown) (unknown) Discharge Plan (units (unknown) date) unknown) (unknown) (no (unknown) (unknown) Discontinued (units (u nknown) date) Medications unknown) (unknown) (no (unknown) (unknown) ENT: Nose without (units (unknown) date) bleeding, purulent unknown) drainage. Throat without erythema, (unknown) (no (unknown) (unknown) ER Physician: (units ( unknown) date) Willy Ventura D.O. unknown) (unknown) (no (unknown) (unknown) EXTREMITIES: No (units (unknown) date) edema or joint unknown) tenderness. (unknown) (no (unknown) (unknown) EYES: Pupils equal (units (unknown) date) round and reactive. unknown) Extraocular motions intact. No scleral (unknown) (no (unknown) (unknown) Eos # (Auto) 100 (units (unknown) date) (0-450) /uL unknown) (unknown) (no (unknown) (unknown) Eos % (Auto) 2.1 (units (unknown) date) (2-4) % unknown) (unknown) (no (unknown) (unknown) Esterase (units (unkno wn) date) unknown) (unknown) (no (unknown) (unknown) Estimated GFR > (units (unknown) date) 60 (>60) mL/min unknown) (unknown) (no (unknown) (unknown) Exam (units (unkno wn) date) unknown) (unknown) (no (unknown) (unknown) Exam Narrative: (units (unknown) date) unknown) (unknown) (no (unknown) (unknown) Family History (units (unknown) date) (Reviewed 04/02/22 unknown) @ 18:59 by Willy Ventura DO) (unknown) (no (unknown) (unknown) Family/Other (units (u nknown) date) Cancer unknown) (unknown) (no (unknown) (unknown) GASTROINTESTINAL: (units (unknown) date) See HPI unknown) (unknown) (no (unknown) (unknown) GASTROINTESTINAL: (units (unknown) date) Abdomen soft, unknown) significant pain on palpation of the right upper (unknown) (no (unknown) (unknown) GENERAL: [32] year (units (unknown) date) old patient appears unknown) stated age. Well-developed patient, in (unknown) (no (unknown) (unknown) : Denies (units (unk nown) date) dysuria, frequency, unknown) incontinence, hematuria, urinary retention. (unknown) (no (unknown) (unknown) General (units (unkno wn) date) unknown) (unknown) (no (unknown) (unknown) GenericComposite[P (units (unknown) date) lt Count 212 unknown) (150-400) X10^3/uL ] (unknown) (no (unknown) (unknown) GenericComposite[R (units (unknown) date) BC 4.33 unknown) (4.0-5.2) X10^6/uL ] (unknown) (no (unknown) (unknown) GenericComposite[W (units (unknown) date) BC 6.0 unknown) (4.5-11.0) X10^3/uL ] (unknown) (no (unknown) (unknown) Globulin 2.7 (units (unknown) date) (1.7-4.1) g/dL unknown) (unknown) (no (unknown) (unknown) Glucose 102 H (units (unknown) date) (70-100) mg/dL unknown) (unknown) (no (unknown) (unknown) HEAD: Atraumatic. (units (unknown) date) Normocephalic. unknown) (unknown) (no (unknown) (unknown) HEENT: Denies (units ( unknown) date) sinus pain, ear unknown) pain, sore throat, difficulty swallowing, (unknown) (no (unknown) (unknown) HPI - Abdominal (units (unknown) date) Pain unknown) (unknown) (no (unknown) (unknown) HPI narrative: (units (unknown) date) unknown) (unknown) (no (unknown) (unknown) Hct 39.5 (units (unkn own) date) (36-46) % unknown) (unknown) (no (unknown) (unknown) Hgb 13.7 (units (unkn own) date) (12.0-16.0) g/dL unknown) (unknown) (no (unknown) (unknown) History of Present (units (unknown) date) Illness unknown) (unknown) (no (unknown) (unknown) Hx of umbilical (units (unknown) date) hernia repair unknown) (04/18/19) (unknown) (no (unknown) (unknown) Hydromorphone HCl (units (unknown) date) (Hydromorphone 0.5 unknown) Mg Inj) 0.5 mg IV NOW ONE (unknown) (no (unknown) (unknown) Initial Vital (units ( unknown) date) Signs unknown) (unknown) (no (unknown) (unknown) Initial Vital (units ( unknown) date) Signs: unknown) (unknown) (no (unknown) (unknown) Lab Data (units (unkno wn) date) unknown) (unknown) (no (unknown) (unknown) Labs: (units (unkno wn) date) unknown) (unknown) (no (unknown) (unknown) Lactate 0.9 (units (unknown) date) (0.7-2.1) mmol/L unknown) (unknown) (no (unknown) (unknown) Lactate (Lactic (units (unknown) date) Acid) Stat unknown) (unknown) (no (unknown) (unknown) Lipase 264 (units (u nknown) date) (23-300) U/L unknown) (unknown) (no (unknown) (unknown) Lipase Stat (units (un known) date) unknown) (unknown) (no (unknown) (unknown) Lymph # (Auto) (units (unknown) date) 1900 (2814-5607) unknown) /uL (unknown) (no (unknown) (unknown) Lymph % (Auto) (units (unknown) date) 32.5 (25-40) % unknown) (unknown) (no (unknown) (unknown) MCH 31.6 (units (unkn own) date) (26-34) PG unknown) (unknown) (no (unknown) (unknown) MCHC 34.6 (units (unk nown) date) (30-36) % unknown) (unknown) (no (unknown) (unknown) MCV 91.2 (units (unkn own) date) (80-100) fL unknown) (unknown) (no (unknown) (unknown) MDM - Abdominal (units (unknown) date) Pain unknown) (unknown) (no (unknown) (unknown) MUSCULOSKELETAL: (units (unknown) date) denies weakness, unknown) joint pain, or bony pain (unknown) (no (unknown) (unknown) Medical History (units (unknown) date) (Reviewed 04/02/22 unknown) @ 18:59 by Willy Ventura DO) (unknown) (no (unknown) (unknown) [place] # (Auto) 300 (units (unknown) date) (0-900) /uL unknown) (unknown) (no (unknown) (unknown) [place] % (Auto) 5.3 (units (unknown) date) (3-14) % unknown) (unknown) (no (unknown) (unknown) NECK: Trachea (units ( unknown) date) midline. Non tender unknown) (unknown) (no (unknown) (unknown) NEURO: AOx3. (units (u nknown) date) unknown) (unknown) (no (unknown) (unknown) NEUROLOGIC: Denies (units (unknown) date) weakness, headache, unknown) numbness, change in speech, confusion, (unknown) (no (unknown) (unknown) Narrative (units (unkn own) date) unknown) (unknown) (no (unknown) (unknown) Narrative: (units (unk nown) date) unknown) (unknown) (no (unknown) (unknown) Neut # (Auto) (units ( unknown) date) 3500 (6768-8666) unknown) /uL (unknown) (no (unknown) (unknown) Neut % (Auto) (units ( unknown) date) 59.2 (50-75) % unknown) (unknown) (no (unknown) (unknown) No Action (units (unkn own) date) unknown) (unknown) (no (unknown) (unknown) No GENERAL: Denies (units (unknown) date) chills, fatigue, unknown) malaise, fever, sweats. (unknown) (no (unknown) (unknown) No Known Drug (units ( unknown) date) Allergies Allergy unknown) Verified 02/05/22 09:04 (unknown) (no (unknown) (unknown) Ondansetron HCl (units (unknown) date) (Ondansetron 4 Mg/2 unknown) Ml Inj) 4 mg IV NOW ONE (unknown) (no (unknown) (unknown) Ordered: (units (unkno wn) date) unknown) (unknown) (no (unknown) (unknown) Orders (units (unkno wn) date) unknown) (unknown) (no (unknown) (unknown) Oxygen Delivery (units (unknown) date) Method Room Air unknown) (unknown) (no (unknown) (unknown) PSYCHIATRIC: No (units (unknown) date) concerning unknown) psychosocial issues. (unknown) (no (unknown) (unknown) Patient History (units (unknown) date) unknown) (unknown) (no (unknown) (unknown) Patient: (units (unkno wn) date) Demetra Young unknown) MR#: M (unknown) (no (unknown) (unknown) Point of care (units ( unknown) date) testing: unknown) (unknown) (no (unknown) (unknown) Potassium 4.1 (units (unknown) date) (3.4-5.1) mmol/L unknown) (unknown) (no (unknown) (unknown) Test (units (unknown) date) Results Negative unknown) (unknown) (no (unknown) (unknown) Prescriptions: (units (unknown) date) unknown) (unknown) (no (unknown) (unknown) Pulse Oximetry 99 (units (unknown) date) 04/02/22 18:09 unknown) (unknown) (no (unknown) (unknown) Pulse Oximetry 100 (units (unknown) date) 99 unknown) (unknown) (no (unknown) (unknown) Pulse Rate 70 (units (unknown) date) 04/02/22 18:09 unknown) (unknown) (no (unknown) (unknown) Pulse Rate 67 70 (units (unknown) date) unknown) (unknown) (no (unknown) (unknown) RDW 12.4 (units (unkn own) date) (11.6-14.8) % unknown) (unknown) (no (unknown) (unknown) RESPIRATORY: Clear (units (unknown) date) to auscultation. unknown) Breath sounds equal bilaterally. No wheezes, (unknown) (no (unknown) (unknown) RESPIRATORY: (units (u nknown) date) Denies dyspnea, unknown) cough, wheezing, hemoptysis, sputum. (unknown) (no (unknown) (unknown) Referrals: (units (unk nown) date) unknown) (unknown) (no (unknown) (unknown) Related Data (units (u nknown) date) unknown) (unknown) (no (unknown) (unknown) Relief) (units (unkno wn) date) unknown) (unknown) (no (unknown) (unknown) Respiratory Rate (units (unknown) date) 20 unknown) (unknown) (no (unknown) (unknown) Result diagrams: (units (unknown) date) unknown) (unknown) (no (unknown) (unknown) Review of Systems (units (unknown) date) unknown) (unknown) (no (unknown) (unknown) SKIN: Denies rash, (units (unknown) date) skin lesions, or unknown) other (unknown) (no (unknown) (unknown) SKIN: No rash or (units (unknown) date) erythema of visible unknown) areas (unknown) (no (unknown) (unknown) Seasonal allergies (units (unknown) date) unknown) (unknown) (no (unknown) (unknown) Signed By: (units (unk nown) date) unknown) (unknown) (no (unknown) (unknown) Smoking Status: (units (unknown) date) Never smoker unknown) (unknown) (no (unknown) (unknown) Smoking Status: (units (unknown) date) Never smoker unknown) (unknown) (no (unknown) (unknown) Social History (units (unknown) date) (Reviewed 04/02/22 unknown) @ 18:59 by Willy Ventura DO) (unknown) (no (unknown) (unknown) Sodium 138 (units (u nknown) date) (137-145) mmol/L unknown) (unknown) (no (unknown) (unknown) Sodium Chloride (units (unknown) date) (Normal Saline unknown) 0.9%) 1,000 mls @ 1,000 mls/hr IV BOLUS ONE (unknown) (no (unknown) (unknown) Sodium Chloride (units (unknown) date) (Normal Saline unknown) 0.9%) 1,000 mls @ 150 mls/hr IV CONT RYAN (unknown) (no (unknown) (unknown) Stated Complaint: (units (unknown) date) Post ABD surgery unknown) severe pain (unknown) (no (unknown) (unknown) Status post (units (un known) date) unknown) (unknown) (no (unknown) (unknown) Status post (units (un known) date) appendectomy unknown) (unknown) (no (unknown) (unknown) Status post (units (un known) date) tonsillectomy unknown) (unknown) (no (unknown) (unknown) Substance Use (units ( unknown) date) Type: marijuana unknown) (unknown) (no (unknown) (unknown) Surgical History (units (unknown) date) (Reviewed 04/02/22 unknown) @ 18:59 by Willy Ventura DO) (unknown) (no (unknown) (unknown) Temperature 98.3 F (units (unknown) date) unknown) (unknown) (no (unknown) (unknown) Time Seen by (units (u nknown) date) Provider: 04/02/22 unknown) 18:13 (unknown) (no (unknown) (unknown) Total Bilirubin (units (unknown) date) 0.5 (0.2-1.3) unknown) mg/dL (unknown) (no (unknown) (unknown) Total Protein (units ( unknown) date) 7.1 (6.3-8.2) unknown) g/dL (unknown) (no (unknown) (unknown) Urine Specific (units (unknown) date) [place] 1.03 unknown) (unknown) (no (unknown) (unknown) Vital Signs (units (un known) date) unknown) (unknown) (no (unknown) (unknown) Vital signs: (units (u nknown) date) unknown) (unknown) (no (unknown) (unknown) [Embedded Image (units (unknown) date) Not Available] unknown) (unknown) (no (unknown) (unknown) acetaminophen 325 (units (unknown) date) mg capsule 650 mg unknown) PO QID PRN pain #60 caps 01/21/22 (unknown) (no (unknown) (unknown) aerosol inhaler (units (unknown) date) unknown) (unknown) (no (unknown) (unknown) albuterol sulfate (units (unknown) date) 90 mcg/actuation 2 unknown) puff inhalation Q4-6H PRN asthma 04/12/19 (unknown) (no (unknown) (unknown) alcohol intake (units (unknown) date) frequency: unknown) holidays/special occasions only (unknown) (no (unknown) (unknown) alcohol intake: (units (unknown) date) current unknown) (unknown) (no (unknown) (unknown) chills. She (units (u nknown) date) denies any change unknown) in bowel habits. She denies any specific or (unknown) (no (unknown) (unknown) ct no overlying (units (unknown) date) erythema, warmth, unknown) induration or fluctuance, nondistended. (unknown) (no (unknown) (unknown) dizziness. (units (unk nown) date) unknown) (unknown) (no (unknown) (unknown) drinking but (units (u nknown) date) states motion, unknown) palpation as well as deep breaths significantly (unknown) (no (unknown) (unknown) dysuria, frequency (units (unknown) date) or urgency unknown) (unknown) (no (unknown) (unknown) estradiol 30 (units (u nknown) date) mcg(21)/iron 75 unknown) mg(7) (unknown) (no (unknown) (unknown) fluticasone (units (un known) date) propionate 50 2 unknown) spray intranasal DAILY 04/12/19 02/05/22 (unknown) (no (unknown) (unknown) hernia repair. She (units (unknown) date) states that she had unknown) been feeling fine until about a week ago (unknown) (no (unknown) (unknown) household members: (units (unknown) date) spouse and unknown) children (unknown) (no (unknown) (unknown) ibuprofen 200 mg (units (unknown) date) tablet 400 mg PO unknown) Q6H #60 tabs 01/21/22 (unknown) (no (unknown) (unknown) icterus. No (units (un known) date) injection or unknown) drainage. (unknown) (no (unknown) (unknown) mcg/actuation (units ( unknown) date) nasal unknown) (unknown) (no (unknown) (unknown) memorable moment (units (unknown) date) that seems to have unknown) exacerbated the pain. She denies any (unknown) (no (unknown) (unknown) mild but has been (units (unknown) date) gradually unknown) worsening. Today she is been having severe pain (unknown) (no (unknown) (unknown) mild distress. (units (unknown) date) unknown) (unknown) (no (unknown) (unknown) multivitamin 1 cap (units (unknown) date) PO DAILY 04/12/19 unknown) 02/05/22 (unknown) (no (unknown) (unknown) norethindrone 1.5 (units (unknown) date) mg-ethinyl 1 tab PO unknown) DAILY 04/10/19 02/05/22 (unknown) (no (unknown) (unknown) number of (units (unkn own) date) children: 2 unknown) (unknown) (no (unknown) (unknown) particularly with (units (unknown) date) any motion. She unknown) denies any provocation with eating or (unknown) (no (unknown) (unknown) prochlorperazine (units (unknown) date) maleate 10 mg 10 mg unknown) PO Q6H PRN nausea and 01/21/22 (unknown) (no (unknown) (unknown) repair at our (units ( unknown) date) facility in January unknown) presents with severe pain in the region of her (unknown) (no (unknown) (unknown) seizures, (units (unkn own) date) incoordination. unknown) (unknown) (no (unknown) (unknown) spray,suspension (units (unknown) date) unknown) (unknown) (no (unknown) (unknown) spray,suspension (units (unknown) date) (Flonase Allergy unknown) (unknown) (no (unknown) (unknown) tablet (units (unkno wn) date) unknown) (unknown) (no (unknown) (unknown) tablet (Compazine) (units (unknown) date) vomiting #30 tabs unknown) (unknown) (no (unknown) (unknown) tonsillar (units (unkn own) date) hypertrophy or unknown) exudate. Airway patent. (unknown) (no (unknown) (unknown) when she started (units (unknown) date) noticing pain in unknown) her right upper quadrant which was initially (unknown) (no (unknown) (unknown) worsen the pain. (units (unknown) date) She denies any unknown) radiation of the pain. She is had no fever or Result panel 17 (unknown) (no (unknown) (unknown) (no value) (units (unk nown) date) unknown) (unknown) (no (unknown) (unknown) Date of Service: (units (unknown) date) 04/02/22 unknown) (unknown) (no (unknown) (unknown) (no value) (units (unk nown) date) unknown) (unknown) (no (unknown) (unknown) 04/02/22 18:32 (units (unknown) date) unknown) (unknown) (no (unknown) (unknown) 1 cap PO DAILY (units (unknown) date) unknown) (unknown) (no (unknown) (unknown) 1 tab PO DAILY (units (unknown) date) unknown) (unknown) (no (unknown) (unknown) 10 mg PO Q6H PRN (units (unknown) date) (Reason: nausea and unknown) vomiting) Qty: 30 0RF (unknown) (no (unknown) (unknown) 2 puff INHALATION (units (unknown) date) Q4-6H PRN (Reason: unknown) asthma) (unknown) (no (unknown) (unknown) 2 spray NASAL (units ( unknown) date) DAILY unknown) (unknown) (no (unknown) (unknown) 400 mg PO Q6H Qty: (units (unknown) date) 60 0RF unknown) (unknown) (no (unknown) (unknown) 650 mg PO QID PRN (units (unknown) date) (Reason: pain) Qty: unknown) 60 0RF (unknown) (no (unknown) (unknown) Allergies (units (unkn own) date) unknown) (unknown) (no (unknown) (unknown) Documented By: KF (units (unknown) date) unknown) (unknown) (no (unknown) (unknown) Documented By: KH (units (unknown) date) unknown) (unknown) (no (unknown) (unknown) ED Orders (units (unkn own) date) unknown) (unknown) (no (unknown) (unknown) Emergency Report (units (unknown) date) unknown) (unknown) (no (unknown) (unknown) Home Medications (units (unknown) date) unknown) (unknown) (no (unknown) (unknown) Hypertension (units (u nknown) date) unknown) (unknown) (no (unknown) (unknown) [facility] (units (unknown) date) [address] unknown) [place] [address] (unknown) (no (unknown) (unknown) Lab Results (units (un known) date) unknown) (unknown) (no (unknown) (unknown) Last Admin: (units (un known) date) 04/02/22 19:08 unknown) Dose: 0.5 mg (unknown) (no (unknown) (unknown) Last Admin: (units (un known) date) 04/02/22 19:08 unknown) Dose: 1,000 mls/hr (unknown) (no (unknown) (unknown) Last Admin: (units (un known) date) 04/02/22 19:08 unknown) Dose: 4 mg (unknown) (no (unknown) (unknown) Last Admin: (units (un known) date) 04/02/22 19:09 unknown) Dose: Not Given (unknown) (no (unknown) (unknown) Last Admin: (units (un known) date) 04/02/22 20:06 unknown) Dose: 15 mg (unknown) (no (unknown) (unknown) Point of Care (units ( unknown) date) Testing unknown) (unknown) (no (unknown) (unknown) Previous Rx's (units ( unknown) date) unknown) (unknown) (no (unknown) (unknown) Stop: 04/02/22 (units (unknown) date) 19:00 unknown) (unknown) (no (unknown) (unknown) Stop: 04/02/22 (units (unknown) date) 19:58 unknown) (unknown) (no (unknown) (unknown) Stop: 04/02/22 (units (unknown) date) 20:02 unknown) (unknown) (no (unknown) (unknown) Urine Dip (units (unkn own) date) unknown) (unknown) (no (unknown) (unknown) Vital Signs - 8 hr (units (unknown) date) unknown) (unknown) (no (unknown) (unknown) (no value) (units (unk nown) date) unknown) (unknown) (no (unknown) (unknown) 04/02/22 04/02/22 (units (unknown) date) 04/02/22 unknown) Range/Units (unknown) (no (unknown) (unknown) 18:32 18:32 18:32 (units (unknown) date) unknown) (unknown) (no (unknown) (unknown) acetaminophen (units ( unknown) date) [Tylenol] 325 mg unknown) capsule (unknown) (no (unknown) (unknown) albuterol sulfate (units (unknown) date) 90 mcg/actuation unknown) HFA aerosol inhaler (unknown) (no (unknown) (unknown) fluticasone (units (un known) date) propionate [Flonase unknown) Allergy Relief] 50 mcg/actuation (unknown) (no (unknown) (unknown) ibuprofen 200 mg (units (unknown) date) tablet unknown) (unknown) (no (unknown) (unknown) multivitamin (units (u nknown) date) capsule unknown) (unknown) (no (unknown) (unknown) norethindrone-e.es (units (unknown) date) tradiol-iron 1.5 unknown) mg-30 mcg (21)/75 mg (7) tablet (unknown) (no (unknown) (unknown) prochlorperazine (units (unknown) date) maleate [Compazine] unknown) 10 mg tablet (unknown) (no (unknown) (unknown) 04/02/22 (units (unkno wn) date) unknown) (unknown) (no (unknown) (unknown) Medication (units (unk nown) date) Instructions unknown) Recorded (unknown) (no (unknown) (unknown) Medication (units (unk nown) date) Instructions unknown) Recorded Confirmed (unknown) (no (unknown) (unknown) quadrant, (units (unkn own) date) decreased bowel unknown) sounds but present. Incision is clean, dry and inta (unknown) (no (unknown) (unknown) rales, or rhonchi. (units (unknown) date) unknown) (unknown) (no (unknown) (unknown) (Tylenol) (units (unkn own) date) unknown) (unknown) (no (unknown) (unknown) [id number] (units (unkn own) date) unknown) (unknown) (no (unknown) (unknown) 02/05/22 (units (unkno wn) date) unknown) (unknown) (no (unknown) (unknown) 04/02/22 18:32 (units (unknown) date) unknown) (unknown) (no (unknown) (unknown) 04/02/22 18:59 (units (unknown) date) unknown) (unknown) (no (unknown) (unknown) 12 point review of (units (unknown) date) systems is negative unknown) except for those stated above (unknown) (no (unknown) (unknown) 18:09 (units (unkno wn) date) unknown) (unknown) (no (unknown) (unknown) 18:09 04/02/22 (units (unknown) date) unknown) (unknown) (no (unknown) (unknown) 18:14 04/02/22 (units (unknown) date) unknown) (unknown) (no (unknown) (unknown) 32F nonsmoker with (units (unknown) date) history of asthma unknown) and a relatively recent ventral hernia (unknown) (no (unknown) (unknown) ALT 16 (<35) (units (unknown) date) IU/L unknown) (unknown) (no (unknown) (unknown) AST 24 (14-36) (units (unknown) date) IU/L unknown) (unknown) (no (unknown) (unknown) Age/Sex: 32 / F (units (unknown) date) unknown) (unknown) (no (unknown) (unknown) Albumin 4.4 (units ( unknown) date) (3.5-5.0) g/dL unknown) (unknown) (no (unknown) (unknown) Albumin/Globulin (units (unknown) date) Ratio 1.6 unknown) (1.0-2.8) (unknown) (no (unknown) (unknown) Alkaline (units (unkno wn) date) Phosphatase 50 unknown) (38-126) U/L (unknown) (no (unknown) (unknown) Allergy/AdvReac (units (unknown) date) Type Severity unknown) Reaction Status Date / Time (unknown) (no (unknown) (unknown) Asthma (units (unkno wn) date) unknown) (unknown) (no (unknown) (unknown) BACK: Nontender (units (unknown) date) without deformity unknown) or crepitance. No flank tenderness. (unknown) (no (unknown) (unknown) BUN 15 (7-17) (units (unknown) date) mg/dL unknown) (unknown) (no (unknown) (unknown) BUN/Creatinine (units (unknown) date) Ratio 17.0 unknown) (6-22) (unknown) (no (unknown) (unknown) Baso # (Auto) 100 (units (unknown) date) (0-100) /uL unknown) (unknown) (no (unknown) (unknown) Baso % (Auto) 0.9 (units (unknown) date) (0-2) % unknown) (unknown) (no (unknown) (unknown) Bedside Urine (units ( unknown) date) Bilirubin - unknown) Negative (unknown) (no (unknown) (unknown) Bedside Urine (units ( unknown) date) Glucose Negative unknown) (unknown) (no (unknown) (unknown) Bedside Urine (units ( unknown) date) Ketone - unknown) Negative (unknown) (no (unknown) (unknown) Bedside Urine (units ( unknown) date) Leukocytes - unknown) Negative (unknown) (no (unknown) (unknown) Bedside Urine (units ( unknown) date) Nitrite - unknown) Negative (unknown) (no (unknown) (unknown) Bedside Urine (units ( unknown) date) Occult Blood - unknown) Negative (unknown) (no (unknown) (unknown) Bedside Urine (units ( unknown) date) Protein - unknown) Negative (unknown) (no (unknown) (unknown) Bedside Urine (units ( unknown) date) Urobilinogen - unknown) Negative (unknown) (no (unknown) (unknown) Bedside Urine pH (units (unknown) date) 6 unknown) (unknown) (no (unknown) (unknown) Blood Pressure (units (unknown) date) 130/74 04/02/22 unknown) 18:09 (unknown) (no (unknown) (unknown) Blood Pressure (units (unknown) date) 130/74 130/74 unknown) (unknown) (no (unknown) (unknown) CARDIOVASCULAR: (units (unknown) date) Denies chest pain, unknown) palpitations, orthopnea, edema, (unknown) (no (unknown) (unknown) CARDIOVASCULAR: (units (unknown) date) Regular rate and unknown) rhythm without murmurs, gallops, or rubs. (unknown) (no (unknown) (unknown) COVID-19 virus (units (unknown) date) infection unknown) (-06/03/21) (unknown) (no (unknown) (unknown) CT abdomen pelvis (units (unknown) date) w con Stat unknown) (unknown) (no (unknown) (unknown) Calcium 8.9 (units ( unknown) date) (8.4-10.2) mg/dL unknown) (unknown) (no (unknown) (unknown) Carbon Dioxide (units (unknown) date) 25 (22-32) unknown) mmol/L (unknown) (no (unknown) (unknown) Justine Wright MD (units (unknown) date) [Primary Care unknown) Provider] - (unknown) (no (unknown) (unknown) Chief Complaint: (units (unknown) date) Abdominal Pain unknown) (unknown) (no (unknown) (unknown) Chloride 104 (units (unknown) date) (98-107) mmol/L unknown) (unknown) (no (unknown) (unknown) Complete Blood (units (unknown) date) Count AUTO DIFF unknown) Stat (unknown) (no (unknown) (unknown) Comprehensive (units ( unknown) date) Metabolic Panel unknown) Stat (unknown) (no (unknown) (unknown) Course (units (unkno wn) date) unknown) (unknown) (no (unknown) (unknown) Creatinine 0.88 (units (unknown) date) (0.52-1.04) mg/dL unknown) (unknown) (no (unknown) (unknown) : 1990 (units (unknown) date) Acct:[id number] unknown) (unknown) (no (unknown) (unknown) Departure (units (unkn own) date) unknown) (unknown) (no (unknown) (unknown) Discharge Plan (units (unknown) date) unknown) (unknown) (no (unknown) (unknown) Discontinued (units (u nknown) date) Medications unknown) (unknown) (no (unknown) (unknown) ENT: Nose without (units (unknown) date) bleeding, purulent unknown) drainage. Throat without erythema, (unknown) (no (unknown) (unknown) ER Physician: (units ( unknown) date) Willy Ventura D.O. unknown) (unknown) (no (unknown) (unknown) EXTREMITIES: No (units (unknown) date) edema or joint unknown) tenderness. (unknown) (no (unknown) (unknown) EYES: Pupils equal (units (unknown) date) round and reactive. unknown) Extraocular motions intact. No scleral (unknown) (no (unknown) (unknown) Eos # (Auto) 100 (units (unknown) date) (0-450) /uL unknown) (unknown) (no (unknown) (unknown) Eos % (Auto) 2.1 (units (unknown) date) (2-4) % unknown) (unknown) (no (unknown) (unknown) Esterase (units (unkno wn) date) unknown) (unknown) (no (unknown) (unknown) Estimated GFR > (units (unknown) date) 60 (>60) mL/min unknown) (unknown) (no (unknown) (unknown) Exam (units (unkno wn) date) unknown) (unknown) (no (unknown) (unknown) Exam Narrative: (units (unknown) date) unknown) (unknown) (no (unknown) (unknown) Family History (units (unknown) date) (Reviewed 04/02/22 unknown) @ 18:59 by Willy Ventura DO) (unknown) (no (unknown) (unknown) Family/Other (units (u nknown) date) Cancer unknown) (unknown) (no (unknown) (unknown) GASTROINTESTINAL: (units (unknown) date) See HPI unknown) (unknown) (no (unknown) (unknown) GASTROINTESTINAL: (units (unknown) date) Abdomen soft, unknown) significant pain on palpation of the right upper (unknown) (no (unknown) (unknown) GENERAL: [32] year (units (unknown) date) old patient appears unknown) stated age. Well-developed patient, in (unknown) (no (unknown) (unknown) : Denies (units (unk nown) date) dysuria, frequency, unknown) incontinence, hematuria, urinary retention. (unknown) (no (unknown) (unknown) General (units (unkno wn) date) unknown) (unknown) (no (unknown) (unknown) GenericComposite[P (units (unknown) date) lt Count 212 unknown) (150-400) X10^3/uL ] (unknown) (no (unknown) (unknown) GenericComposite[R (units (unknown) date) BC 4.33 unknown) (4.0-5.2) X10^6/uL ] (unknown) (no (unknown) (unknown) GenericComposite[W (units (unknown) date) BC 6.0 unknown) (4.5-11.0) X10^3/uL ] (unknown) (no (unknown) (unknown) Globulin 2.7 (units (unknown) date) (1.7-4.1) g/dL unknown) (unknown) (no (unknown) (unknown) Glucose 102 H (units (unknown) date) (70-100) mg/dL unknown) (unknown) (no (unknown) (unknown) HEAD: Atraumatic. (units (unknown) date) Normocephalic. unknown) (unknown) (no (unknown) (unknown) HEENT: Denies (units ( unknown) date) sinus pain, ear unknown) pain, sore throat, difficulty swallowing, (unknown) (no (unknown) (unknown) HPI - Abdominal (units (unknown) date) Pain unknown) (unknown) (no (unknown) (unknown) HPI narrative: (units (unknown) date) unknown) (unknown) (no (unknown) (unknown) Hct 39.5 (units (unkn own) date) (36-46) % unknown) (unknown) (no (unknown) (unknown) Hgb 13.7 (units (unkn own) date) (12.0-16.0) g/dL unknown) (unknown) (no (unknown) (unknown) History of Present (units (unknown) date) Illness unknown) (unknown) (no (unknown) (unknown) Hx of umbilical (units (unknown) date) hernia repair unknown) (04/18/19) (unknown) (no (unknown) (unknown) Hydromorphone HCl (units (unknown) date) (Hydromorphone 0.5 unknown) Mg Inj) 0.5 mg IV NOW ONE (unknown) (no (unknown) (unknown) Initial Vital (units ( unknown) date) Signs unknown) (unknown) (no (unknown) (unknown) Initial Vital (units ( unknown) date) Signs: unknown) (unknown) (no (unknown) (unknown) Ketorolac (units (unkn own) date) Tromethamine unknown) (Ketorolac 30 Mg/Ml Vial) 15 mg IV NOW ONE (unknown) (no (unknown) (unknown) Lab Data (units (unkno wn) date) unknown) (unknown) (no (unknown) (unknown) Labs: (units (unkno wn) date) unknown) (unknown) (no (unknown) (unknown) Lactate 0.9 (units (unknown) date) (0.7-2.1) mmol/L unknown) (unknown) (no (unknown) (unknown) Lactate (Lactic (units (unknown) date) Acid) Stat unknown) (unknown) (no (unknown) (unknown) Lipase 264 (units (u nknown) date) (23-300) U/L unknown) (unknown) (no (unknown) (unknown) Lipase Stat (units (un known) date) unknown) (unknown) (no (unknown) (unknown) Lymph # (Auto) (units (unknown) date) 1900 (5921-7515) unknown) /uL (unknown) (no (unknown) (unknown) Lymph % (Auto) (units (unknown) date) 32.5 (25-40) % unknown) (unknown) (no (unknown) (unknown) MCH 31.6 (units (unkn own) date) (26-34) PG unknown) (unknown) (no (unknown) (unknown) MCHC 34.6 (units (unk nown) date) (30-36) % unknown) (unknown) (no (unknown) (unknown) MCV 91.2 (units (unkn own) date) (80-100) fL unknown) (unknown) (no (unknown) (unknown) MDM - Abdominal (units (unknown) date) Pain unknown) (unknown) (no (unknown) (unknown) MUSCULOSKELETAL: (units (unknown) date) denies weakness, unknown) joint pain, or bony pain (unknown) (no (unknown) (unknown) Medical History (units (unknown) date) (Reviewed 04/02/22 unknown) @ 18:59 by Willy Ventura DO) (unknown) (no (unknown) (unknown) [place] # (Auto) 300 (units (unknown) date) (0-900) /uL unknown) (unknown) (no (unknown) (unknown) [place] % (Auto) 5.3 (units (unknown) date) (3-14) % unknown) (unknown) (no (unknown) (unknown) NECK: Trachea (units ( unknown) date) midline. Non tender unknown) (unknown) (no (unknown) (unknown) NEURO: AOx3. (units (u nknown) date) unknown) (unknown) (no (unknown) (unknown) NEUROLOGIC: Denies (units (unknown) date) weakness, headache, unknown) numbness, change in speech, confusion, (unknown) (no (unknown) (unknown) Narrative (units (unkn own) date) unknown) (unknown) (no (unknown) (unknown) Narrative: (units (unk nown) date) unknown) (unknown) (no (unknown) (unknown) Neut # (Auto) (units ( unknown) date) 3500 (7671-6993) unknown) /uL (unknown) (no (unknown) (unknown) Neut % (Auto) (units ( unknown) date) 59.2 (50-75) % unknown) (unknown) (no (unknown) (unknown) No Action (units (unkn own) date) unknown) (unknown) (no (unknown) (unknown) No GENERAL: Denies (units (unknown) date) chills, fatigue, unknown) malaise, fever, sweats. (unknown) (no (unknown) (unknown) No Known Drug (units ( unknown) date) Allergies Allergy unknown) Verified 02/05/22 09:04 (unknown) (no (unknown) (unknown) Ondansetron HCl (units (unknown) date) (Ondansetron 4 Mg/2 unknown) Ml Inj) 4 mg IV NOW ONE (unknown) (no (unknown) (unknown) Ordered: (units (unkno wn) date) unknown) (unknown) (no (unknown) (unknown) Orders (units (unkno wn) date) unknown) (unknown) (no (unknown) (unknown) Oxygen Delivery (units (unknown) date) Method Room Air unknown) (unknown) (no (unknown) (unknown) PSYCHIATRIC: No (units (unknown) date) concerning unknown) psychosocial issues. (unknown) (no (unknown) (unknown) Patient History (units (unknown) date) unknown) (unknown) (no (unknown) (unknown) Patient: (units (unkno wn) date) Demetra Young unknown) MR#: M (unknown) (no (unknown) (unknown) Point of care (units ( unknown) date) testing: unknown) (unknown) (no (unknown) (unknown) Potassium 4.1 (units (unknown) date) (3.4-5.1) mmol/L unknown) (unknown) (no (unknown) (unknown) Test (units (unknown) date) Results Negative unknown) (unknown) (no (unknown) (unknown) Prescriptions: (units (unknown) date) unknown) (unknown) (no (unknown) (unknown) Pulse Oximetry 99 (units (unknown) date) 04/02/22 18:09 unknown) (unknown) (no (unknown) (unknown) Pulse Oximetry 100 (units (unknown) date) 99 unknown) (unknown) (no (unknown) (unknown) Pulse Rate 70 (units (unknown) date) 04/02/22 18:09 unknown) (unknown) (no (unknown) (unknown) Pulse Rate 67 70 (units (unknown) date) unknown) (unknown) (no (unknown) (unknown) RDW 12.4 (units (unkn own) date) (11.6-14.8) % unknown) (unknown) (no (unknown) (unknown) RESPIRATORY: Clear (units (unknown) date) to auscultation. unknown) Breath sounds equal bilaterally. No wheezes, (unknown) (no (unknown) (unknown) RESPIRATORY: (units (u nknown) date) Denies dyspnea, unknown) cough, wheezing, hemoptysis, sputum. (unknown) (no (unknown) (unknown) Referrals: (units (unk nown) date) unknown) (unknown) (no (unknown) (unknown) Related Data (units (u nknown) date) unknown) (unknown) (no (unknown) (unknown) Relief) (units (unkno wn) date) unknown) (unknown) (no (unknown) (unknown) Respiratory Rate (units (unknown) date) 20 unknown) (unknown) (no (unknown) (unknown) Result diagrams: (units (unknown) date) unknown) (unknown) (no (unknown) (unknown) Review of Systems (units (unknown) date) unknown) (unknown) (no (unknown) (unknown) SKIN: Denies rash, (units (unknown) date) skin lesions, or unknown) other (unknown) (no (unknown) (unknown) SKIN: No rash or (units (unknown) date) erythema of visible unknown) areas (unknown) (no (unknown) (unknown) Seasonal allergies (units (unknown) date) unknown) (unknown) (no (unknown) (unknown) Signed By: (units (unk nown) date) unknown) (unknown) (no (unknown) (unknown) Smoking Status: (units (unknown) date) Never smoker unknown) (unknown) (no (unknown) (unknown) Smoking Status: (units (unknown) date) Never smoker unknown) (unknown) (no (unknown) (unknown) Social History (units (unknown) date) (Reviewed 04/02/22 unknown) @ 18:59 by Willy Ventura DO) (unknown) (no (unknown) (unknown) Sodium 138 (units (u nknown) date) (137-145) mmol/L unknown) (unknown) (no (unknown) (unknown) Sodium Chloride (units (unknown) date) (Normal Saline unknown) 0.9%) 1,000 mls @ 1,000 mls/hr IV BOLUS ONE (unknown) (no (unknown) (unknown) Sodium Chloride (units (unknown) date) (Normal Saline unknown) 0.9%) 1,000 mls @ 150 mls/hr IV CONT RYAN (unknown) (no (unknown) (unknown) Stated Complaint: (units (unknown) date) Post ABD surgery unknown) severe pain (unknown) (no (unknown) (unknown) Status post (units (un known) date) unknown) (unknown) (no (unknown) (unknown) Status post (units (un known) date) appendectomy unknown) (unknown) (no (unknown) (unknown) Status post (units (un known) date) tonsillectomy unknown) (unknown) (no (unknown) (unknown) Substance Use (units ( unknown) date) Type: marijuana unknown) (unknown) (no (unknown) (unknown) Surgical History (units (unknown) date) (Reviewed 04/02/22 unknown) @ 18:59 by Willy Ventura DO) (unknown) (no (unknown) (unknown) Temperature 98.3 F (units (unknown) date) unknown) (unknown) (no (unknown) (unknown) Time Seen by (units (u nknown) date) Provider: 04/02/22 unknown) 18:13 (unknown) (no (unknown) (unknown) Total Bilirubin (units (unknown) date) 0.5 (0.2-1.3) unknown) mg/dL (unknown) (no (unknown) (unknown) Total Protein (units ( unknown) date) 7.1 (6.3-8.2) unknown) g/dL (unknown) (no (unknown) (unknown) Urine Specific (units (unknown) date) Hosmer 1.03 unknown) (unknown) (no (unknown) (unknown) Vital Signs (units (un known) date) unknown) (unknown) (no (unknown) (unknown) Vital signs: (units (u nknown) date) unknown) (unknown) (no (unknown) (unknown) [Embedded Image (units (unknown) date) Not Available] unknown) (unknown) (no (unknown) (unknown) acetaminophen 325 (units (unknown) date) mg capsule 650 mg unknown) PO QID PRN pain #60 caps 01/21/22 (unknown) (no (unknown) (unknown) aerosol inhaler (units (unknown) date) unknown) (unknown) (no (unknown) (unknown) albuterol sulfate (units (unknown) date) 90 mcg/actuation 2 unknown) puff inhalation Q4-6H PRN asthma 04/12/19 (unknown) (no (unknown) (unknown) alcohol intake (units (unknown) date) frequency: unknown) holidays/special occasions only (unknown) (no (unknown) (unknown) alcohol intake: (units (unknown) date) current unknown) (unknown) (no (unknown) (unknown) chills. She (units (u nknown) date) denies any change unknown) in bowel habits. She denies any specific or (unknown) (no (unknown) (unknown) ct no overlying (units (unknown) date) erythema, warmth, unknown) induration or fluctuance, nondistended. (unknown) (no (unknown) (unknown) dizziness. (units (unk nown) date) unknown) (unknown) (no (unknown) (unknown) drinking but (units (u nknown) date) states motion, unknown) palpation as well as deep breaths significantly (unknown) (no (unknown) (unknown) dysuria, frequency (units (unknown) date) or urgency unknown) (unknown) (no (unknown) (unknown) estradiol 30 (units (u nknown) date) mcg(21)/iron 75 unknown) mg(7) (unknown) (no (unknown) (unknown) fluticasone (units (un known) date) propionate 50 2 unknown) spray intranasal DAILY 04/12/19 02/05/22 (unknown) (no (unknown) (unknown) hernia repair. She (units (unknown) date) states that she had unknown) been feeling fine until about a week ago (unknown) (no (unknown) (unknown) household members: (units (unknown) date) spouse and unknown) children (unknown) (no (unknown) (unknown) ibuprofen 200 mg (units (unknown) date) tablet 400 mg PO unknown) Q6H #60 tabs 01/21/22 (unknown) (no (unknown) (unknown) icterus. No (units (un known) date) injection or unknown) drainage. (unknown) (no (unknown) (unknown) mcg/actuation (units ( unknown) date) nasal unknown) (unknown) (no (unknown) (unknown) memorable moment (units (unknown) date) that seems to have unknown) exacerbated the pain. She denies any (unknown) (no (unknown) (unknown) mild but has been (units (unknown) date) gradually unknown) worsening. Today she is been having severe pain (unknown) (no (unknown) (unknown) mild distress. (units (unknown) date) unknown) (unknown) (no (unknown) (unknown) multivitamin 1 cap (units (unknown) date) PO DAILY 04/12/19 unknown) 02/05/22 (unknown) (no (unknown) (unknown) norethindrone 1.5 (units (unknown) date) mg-ethinyl 1 tab PO unknown) DAILY 04/10/19 02/05/22 (unknown) (no (unknown) (unknown) number of (units (unkn own) date) children: 2 unknown) (unknown) (no (unknown) (unknown) particularly with (units (unknown) date) any motion. She unknown) denies any provocation with eating or (unknown) (no (unknown) (unknown) prochlorperazine (units (unknown) date) maleate 10 mg 10 mg unknown) PO Q6H PRN nausea and 01/21/22 (unknown) (no (unknown) (unknown) repair at our (units ( unknown) date) facility in January unknown) presents with severe pain in the region of her (unknown) (no (unknown) (unknown) seizures, (units (unkn own) date) incoordination. unknown) (unknown) (no (unknown) (unknown) spray,suspension (units (unknown) date) unknown) (unknown) (no (unknown) (unknown) spray,suspension (units (unknown) date) (Flonase Allergy unknown) (unknown) (no (unknown) (unknown) tablet (units (unkno wn) date) unknown) (unknown) (no (unknown) (unknown) tablet (Compazine) (units (unknown) date) vomiting #30 tabs unknown) (unknown) (no (unknown) (unknown) tonsillar (units (unkn own) date) hypertrophy or unknown) exudate. Airway patent. (unknown) (no (unknown) (unknown) when she started (units (unknown) date) noticing pain in unknown) her right upper quadrant which was initially (unknown) (no (unknown) (unknown) worsen the pain. (units (unknown) date) She denies any unknown) radiation of the pain. She is had no fever or Result panel 18 (unknown) (no (unknown) (unknown) (no value) (units (unk nown) date) unknown) (unknown) (no (unknown) (unknown) Radiologist's (units ( unknown) date) Impression: unknown) (unknown) (no (unknown) (unknown) *Please continue (units (unknown) date) to take your unknown) regular medications as directed. (unknown) (no (unknown) (unknown) Date of Service: (units (unknown) date) 04/02/22 unknown) (unknown) (no (unknown) (unknown) (no value) (units (unk nown) date) unknown) (unknown) (no (unknown) (unknown) <Electronically (units (unknown) date) signed by Willy Ventura D.O.> (unknown) (no (unknown) (unknown) 04/02/22 18:32 (units (unknown) date) unknown) (unknown) (no (unknown) (unknown) 04/03/22 0045 (units ( unknown) date) unknown) (unknown) (no (unknown) (unknown) 1 cap PO DAILY (units (unknown) date) unknown) (unknown) (no (unknown) (unknown) 1 tab PO DAILY (units (unknown) date) unknown) (unknown) (no (unknown) (unknown) 1 tab PO Q4-6H PRN (units (unknown) date) (Reason: pain) Qty: unknown) 20 0RF (unknown) (no (unknown) (unknown) 10 mg PO Q6H PRN (units (unknown) date) (Reason: nausea and unknown) vomiting) Qty: 30 0RF (unknown) (no (unknown) (unknown) [address] [place] [address] (units (unknown) date) unknown) (unknown) (no (unknown) (unknown) 2 puff INHALATION (units (unknown) date) Q4-6H PRN (Reason: unknown) asthma) (unknown) (no (unknown) (unknown) 2 spray NASAL (units ( unknown) date) DAILY unknown) (unknown) (no (unknown) (unknown) 4 mg PO TID-QID (units (unknown) date) PRN (Reason: nausea unknown) and vomiting) Qty: 10 0RF (unknown) (no (unknown) (unknown) 400 mg PO Q6H Qty: (units (unknown) date) 60 0RF unknown) (unknown) (no (unknown) (unknown) 650 mg PO QID PRN (units (unknown) date) (Reason: pain) Qty: unknown) 60 0RF (unknown) (no (unknown) (unknown) Admin: 04/02/22 (units (unknown) date) 19:08 Dose: 1,000 unknown) mls/hr (unknown) (no (unknown) (unknown) Allergies (units (unkn own) date) unknown) (unknown) (no (unknown) (unknown) [place], [place] (units ( unknown) date) [id number] unknown) (unknown) (no (unknown) (unknown) CT Scan Report (units (unknown) date) unknown) (unknown) (no (unknown) (unknown) Close (units (unkno wn) date) unknown) (unknown) (no (unknown) (unknown) Documented By: KF (units (unknown) date) unknown) (unknown) (no (unknown) (unknown) Documented By: KH (units (unknown) date) unknown) (unknown) (no (unknown) (unknown) ED Orders (units (unkn own) date) unknown) (unknown) (no (unknown) (unknown) Emergency Report (units (unknown) date) unknown) (unknown) (no (unknown) (unknown) Home Medications (units (unknown) date) unknown) (unknown) (no (unknown) (unknown) Hypertension (units (u nknown) date) unknown) (unknown) (no (unknown) (unknown) [facility] (units (unknown) date) unknown) (unknown) (no (unknown) (unknown) [facility] (units (unknown) date) [address] unknown) [place] [address] (unknown) (no (unknown) (unknown) Lab Results (units (un known) date) unknown) (unknown) (no (unknown) (unknown) Last Admin: (units (un known) date) 04/02/22 19:08 unknown) Dose: 0.5 mg (unknown) (no (unknown) (unknown) Last Admin: (units (un known) date) 04/02/22 19:08 unknown) Dose: 4 mg (unknown) (no (unknown) (unknown) Last Admin: (units (un known) date) 04/02/22 19:09 unknown) Dose: Not Given (unknown) (no (unknown) (unknown) Last Admin: (units (un known) date) 04/02/22 20:06 unknown) Dose: 15 mg (unknown) (no (unknown) (unknown) Last Admin: (units (un known) date) 04/02/22 20:38 unknown) Dose: 1 bottle (unknown) (no (unknown) (unknown) Last Admin: (units (un known) date) 04/02/22 20:39 unknown) Dose: 1 bottle (unknown) (no (unknown) (unknown) Last Infusion: (units (unknown) date) 04/02/22 20:40 unknown) Dose: 0 mls/hr (unknown) (no (unknown) (unknown) Launch?Image (units (u nknown) date) unknown) (unknown) (no (unknown) (unknown) Point of Care (units ( unknown) date) Testing unknown) (unknown) (no (unknown) (unknown) Previous Rx's (units ( unknown) date) unknown) (unknown) (no (unknown) (unknown) Signed (units (unkno wn) date) unknown) (unknown) (no (unknown) (unknown) Stop: 04/02/22 (units (unknown) date) 19:00 unknown) (unknown) (no (unknown) (unknown) Stop: 04/02/22 (units (unknown) date) 19:58 unknown) (unknown) (no (unknown) (unknown) Stop: 04/02/22 (units (unknown) date) 20:02 unknown) (unknown) (no (unknown) (unknown) Stop: 04/02/22 (units (unknown) date) 20:31 unknown) (unknown) (no (unknown) (unknown) Urine Dip (units (unkn own) date) unknown) (unknown) (no (unknown) (unknown) Vital Signs - 8 hr (units (unknown) date) unknown) (unknown) (no (unknown) (unknown) [ ] New medication (units (unknown) date) written as a paper unknown) prescription (unknown) (no (unknown) (unknown) [ ] No new (units (unk nown) date) medications given unknown) (unknown) (no (unknown) (unknown) [ x] New (units (unkno wn) date) medication unknown) prescriptions sent to your pharmacy: [ [facility] (unknown) (no (unknown) (unknown) (no value) (units (unk nown) date) unknown) (unknown) (no (unknown) (unknown) 04/02/22 04/02/22 (units (unknown) date) 04/02/22 unknown) Range/Units (unknown) (no (unknown) (unknown) 18:32 18:32 18:32 (units (unknown) date) unknown) (unknown) (no (unknown) (unknown) acetaminophen (units ( unknown) date) [Tylenol] 325 mg unknown) capsule (unknown) (no (unknown) (unknown) albuterol sulfate (units (unknown) date) 90 mcg/actuation unknown) HFA aerosol inhaler (unknown) (no (unknown) (unknown) fluticasone (units (un known) date) propionate [Flonase unknown) Allergy Relief] 50 mcg/actuation (unknown) (no (unknown) (unknown) hydrocodone-acetam (units (unknown) date) inophen 5-325 mg unknown) tablet (unknown) (no (unknown) (unknown) ibuprofen 200 mg (units (unknown) date) tablet unknown) (unknown) (no (unknown) (unknown) multivitamin (units (u nknown) date) capsule unknown) (unknown) (no (unknown) (unknown) norethindrone-e.es (units (unknown) date) tradiol-iron 1.5 unknown) mg-30 mcg (21)/75 mg (7) tablet (unknown) (no (unknown) (unknown) ondansetron 4 mg (units (unknown) date) tablet,disintegrati unknown) ng (unknown) (no (unknown) (unknown) prochlorperazine (units (unknown) date) maleate [Compazine] unknown) 10 mg tablet (unknown) (no (unknown) (unknown) 04/02/22 (units (unkno wn) date) unknown) (unknown) (no (unknown) (unknown) Hematoma of (units (un known) date) abdominal wall unknown) (unknown) (no (unknown) (unknown) Medication (units (unk nown) date) Instructions unknown) Recorded (unknown) (no (unknown) (unknown) Medication (units (unk nown) date) Instructions unknown) Recorded Confirmed (unknown) (no (unknown) (unknown) SEEINSTR ONE (units (u nknown) date) unknown) (unknown) (no (unknown) (unknown) colon is (units (unkno wn) date) unknown) (unknown) (no (unknown) (unknown) free (units (unkno wn) date) unknown) (unknown) (no (unknown) (unknown) left (units (unkno wn) date) unknown) (unknown) (no (unknown) (unknown) quadrant, (units (unkn own) date) decreased bowel unknown) sounds but present. Incision is clean, dry and (unknown) (no (unknown) (unknown) rales, or rhonchi. (units (unknown) date) unknown) (unknown) (no (unknown) (unknown) (More??) (units (unkno wn) date) unknown) (unknown) (no (unknown) (unknown) (Tylenol) (units (unkn own) date) unknown) (unknown) (no (unknown) (unknown) *Please follow up (units (unknown) date) with Dr. Baez's unknown) office. Call tomorrow morning and let them (unknown) (no (unknown) (unknown) *Return to (units (unk nown) date) Emergency unknown) Department if you should have any new, worsening or (unknown) (no (unknown) (unknown) *What to do: (units (u nknown) date) unknown) (unknown) (no (unknown) (unknown) *You have been (units (unknown) date) diagnosed with unknown) [abdominal wall hematoma] (unknown) (no (unknown) (unknown) - (units (unkno wn) date) unknown) (unknown) (no (unknown) (unknown) [id number] (units (unkn own) date) unknown) (unknown) (no (unknown) (unknown) 11/26/21 (units (unkno wn) date) unknown) (unknown) (no (unknown) (unknown) 12/29/21 (units (unkno wn) date) unknown) (unknown) (no (unknown) (unknown) 01/02/21 (units (unkno wn) date) unknown) (unknown) (no (unknown) (unknown) 01/21/22 (units (unkno wn) date) unknown) (unknown) (no (unknown) (unknown) 01/31/21 (units (unkno wn) date) unknown) (unknown) (no (unknown) (unknown) 02/05/22 (units (unkno wn) date) unknown) (unknown) (no (unknown) (unknown) 03/25/20 (units (unkno wn) date) unknown) (unknown) (no (unknown) (unknown) 04/02/22 (units (unkno wn) date) unknown) (unknown) (no (unknown) (unknown) 04/02/22 18:32 (units (unknown) date) unknown) (unknown) (no (unknown) (unknown) 04/02/22 18:59 (units (unknown) date) unknown) (unknown) (no (unknown) (unknown) 04/10/19 (units (unkno wn) date) unknown) (unknown) (no (unknown) (unknown) 04/14/19 (units (unkno wn) date) unknown) (unknown) (no (unknown) (unknown) 1. Asymmetric (units (u nknown) date) prominence of right unknown) anterior abdominal wall muscle anterior to the (unknown) (no (unknown) (unknown) 07/27/21 (units (unkno wn) date) unknown) (unknown) (no (unknown) (unknown) 12 point review of (units (unknown) date) systems is negative unknown) except for those stated above (unknown) (no (unknown) (unknown) 18:09 (units (unkno wn) date) unknown) (unknown) (no (unknown) (unknown) 18:09 04/02/22 (units (unknown) date) unknown) (unknown) (no (unknown) (unknown) 18:14 04/02/22 (units (unknown) date) unknown) (unknown) (no (unknown) (unknown) 2. No acute (units (unk nown) date) inflammatory unknown) process is seen in abdomen or pelvis.? No free fluid or (unknown) (no (unknown) (unknown) 32F nonsmoker with (units (unknown) date) history of asthma unknown) and a relatively recent ventral hernia (unknown) (no (unknown) (unknown) ? (units (unkno wn) date) unknown) (unknown) (no (unknown) (unknown) ? (units (unkno wn) date) unknown) (unknown) (no (unknown) (unknown) ABDOMEN: (units (unkno wn) date) unknown) (unknown) (no (unknown) (unknown) ALT 16 (<35) (units (unknown) date) IU/L unknown) (unknown) (no (unknown) (unknown) AST 24 (14-36) (units (unknown) date) IU/L unknown) (unknown) (no (unknown) (unknown) Abdomen Ultrasound (units (unknown) date) (Signed) unknown) (unknown) (no (unknown) (unknown) Abdomen/Pelvis CT (units (unknown) date) (Signed) unknown) (unknown) (no (unknown) (unknown) Abdominal Nodes:? (units (unknown) date) No retroperitoneal unknown) or mesenteric adenopathy by size criteria.? (unknown) (no (unknown) (unknown) Accession Number: (units (unknown) date) [id number] ?? unknown) (unknown) (no (unknown) (unknown) Acct:[id number] (units (unknown) date) unknown) (unknown) (no (unknown) (unknown) Activity (units (unkno wn) date) Restrictions/Additi unknown) onal Instructions: (unknown) (no (unknown) (unknown) Additionally, you (units (unknown) date) cannot sign legal unknown) documents or perform any duties such as (unknown) (no (unknown) (unknown) Adrenal Glands:? (units (unknown) date) Unremarkable.? ? unknown) (unknown) (no (unknown) (unknown) After the (units (unkn own) date) administration of unknown) intravenous contrast, axial sections acquired from (unknown) (no (unknown) (unknown) Age/Sex: 32 / F (units (unknown) date) unknown) (unknown) (no (unknown) (unknown) Age/Sex: 32 / F (units (unknown) date) unknown) (unknown) (no (unknown) (unknown) Albumin 4.4 (units ( unknown) date) (3.5-5.0) g/dL unknown) (unknown) (no (unknown) (unknown) Albumin/Globulin (units (unknown) date) Ratio 1.6 unknown) (1.0-2.8) (unknown) (no (unknown) (unknown) Alkaline (units (unkno wn) date) Phosphatase 50 unknown) (38-126) U/L (unknown) (no (unknown) (unknown) Allergy/Adv: No (units (unknown) date) Known Drug unknown) Allergies (unknown) (no (unknown) (unknown) Allergy/AdvReac (units (unknown) date) Type Severity unknown) Reaction Status Date / Time (unknown) (no (unknown) (unknown) Approved by: Jacob (units (unknown) date) Elo Mota on unknown) 04/02/2022 at 19:54 ? (unknown) (no (unknown) (unknown) Asthma (units (unkno wn) date) unknown) (unknown) (no (unknown) (unknown) BACK: Nontender (units (unknown) date) without deformity unknown) or crepitance. No flank tenderness. (unknown) (no (unknown) (unknown) BUN 15 (7-17) (units (unknown) date) mg/dL unknown) (unknown) (no (unknown) (unknown) BUN/Creatinine (units (unknown) date) Ratio 17.0 unknown) (6-22) (unknown) (no (unknown) (unknown) Baso # (Auto) 100 (units (unknown) date) (0-100) /uL unknown) (unknown) (no (unknown) (unknown) Baso % (Auto) 0.9 (units (unknown) date) (0-2) % unknown) (unknown) (no (unknown) (unknown) Bedside Urine (units ( unknown) date) Bilirubin - unknown) Negative (unknown) (no (unknown) (unknown) Bedside Urine (units ( unknown) date) Glucose Negative unknown) (unknown) (no (unknown) (unknown) Bedside Urine (units ( unknown) date) Ketone - unknown) Negative (unknown) (no (unknown) (unknown) Bedside Urine (units ( unknown) date) Leukocytes - unknown) Negative (unknown) (no (unknown) (unknown) Bedside Urine (units ( unknown) date) Nitrite - unknown) Negative (unknown) (no (unknown) (unknown) Bedside Urine (units ( unknown) date) Occult Blood - unknown) Negative (unknown) (no (unknown) (unknown) Bedside Urine (units ( unknown) date) Protein - unknown) Negative (unknown) (no (unknown) (unknown) Bedside Urine (units ( unknown) date) Urobilinogen - unknown) Negative (unknown) (no (unknown) (unknown) Bedside Urine pH (units (unknown) date) 6 unknown) (unknown) (no (unknown) (unknown) Biliary ducts:? (units (unknown) date) Unremarkable.? ? unknown) (unknown) (no (unknown) (unknown) Bladder:? (units (unkn own) date) Unremarkable.? ? unknown) (unknown) (no (unknown) (unknown) Blood Pressure (units (unknown) date) 130/74 04/02/22 unknown) 18:09 (unknown) (no (unknown) (unknown) Blood Pressure (units (unknown) date) 130/74 130/74 unknown) (unknown) (no (unknown) (unknown) Bones:? No (units (unk nown) date) suspicious bony unknown) lesion.? No acute vertebral body compression (unknown) (no (unknown) (unknown) CARDIOVASCULAR: (units (unknown) date) Denies chest pain, unknown) palpitations, orthopnea, edema, (unknown) (no (unknown) (unknown) CARDIOVASCULAR: (units (unknown) date) Regular rate and unknown) rhythm without murmurs, gallops, or rubs. (unknown) (no (unknown) (unknown) COMPARISON:? None. (units (unknown) date) unknown) (unknown) (no (unknown) (unknown) COVID-19 virus (units (unknown) date) infection unknown) (-06/03/21) (unknown) (no (unknown) (unknown) CT abdomen pelvis (units (unknown) date) w con Stat unknown) (unknown) (no (unknown) (unknown) CT scan - (units (unkn own) date) abdomen/pelvis: unknown) (unknown) (no (unknown) (unknown) Calcium 8.9 (units ( unknown) date) (8.4-10.2) mg/dL unknown) (unknown) (no (unknown) (unknown) Yokasta Caldwell (units (unknown) date) unknown) (unknown) (no (unknown) (unknown) Carbon Dioxide (units (unknown) date) 25 (22-32) unknown) mmol/L (unknown) (no (unknown) (unknown) Justine Wright MD (units (unknown) date) [Primary Care unknown) Provider] - (unknown) (no (unknown) (unknown) Chest X-Ray (units (un known) date) (Signed) unknown) (unknown) (no (unknown) (unknown) Chief Complaint: (units (unknown) date) Abdominal Pain unknown) (unknown) (no (unknown) (unknown) Chloride 104 (units (unknown) date) (98-107) mmol/L unknown) (unknown) (no (unknown) (unknown) Clinical (units (unkno wn) date) Impression: unknown) (unknown) (no (unknown) (unknown) Complete Blood (units (unknown) date) Count AUTO DIFF unknown) Stat (unknown) (no (unknown) (unknown) Comprehensive (units ( unknown) date) Metabolic Panel unknown) Stat (unknown) (no (unknown) (unknown) Consultation #1: (units (unknown) date) unknown) (unknown) (no (unknown) (unknown) Consultations (units ( unknown) date) unknown) (unknown) (no (unknown) (unknown) Course (units (unkno wn) date) unknown) (unknown) (no (unknown) (unknown) Creatinine 0.88 (units (unknown) date) (0.52-1.04) mg/dL unknown) (unknown) (no (unknown) (unknown) DI Result CC (units (u nknown) date) unknown) (unknown) (no (unknown) (unknown) : 1990 (units (unknown) date) Acct:[id number] unknown) (unknown) (no (unknown) (unknown) : 1990 (units (unknown) date) unknown) (unknown) (no (unknown) (unknown) Date of Service: (units (unknown) date) 04/02/22 unknown) (unknown) (no (unknown) (unknown) Departure (units (unkn own) date) unknown) (unknown) (no (unknown) (unknown) Dictated by: Jacob (units (unknown) date) Elo Mota on unknown) 04/02/2022 at 19:49 ? ? (unknown) (no (unknown) (unknown) Discharge Plan (units (unknown) date) unknown) (unknown) (no (unknown) (unknown) Discontinued (units (u nknown) date) Medications unknown) (unknown) (no (unknown) (unknown) Discussed with (units (unknown) date) on-call General unknown) surgery, we have reviewed the case, history and (unknown) (no (unknown) (unknown) ENT: Nose without (units (unknown) date) bleeding, purulent unknown) drainage. Throat without erythema, (unknown) (no (unknown) (unknown) ER Physician: (units ( unknown) date) Willy Ventura D.O. unknown) (unknown) (no (unknown) (unknown) EXTREMITIES: No (units (unknown) date) edema or joint unknown) tenderness. (unknown) (no (unknown) (unknown) EYES: Pupils equal (units (unknown) date) round and reactive. unknown) Extraocular motions intact. No scleral (unknown) (no (unknown) (unknown) Eos # (Auto) 100 (units (unknown) date) (0-450) /uL unknown) (unknown) (no (unknown) (unknown) Eos % (Auto) 2.1 (units (unknown) date) (2-4) % unknown) (unknown) (no (unknown) (unknown) Esterase (units (unkno wn) date) unknown) (unknown) (no (unknown) (unknown) Estimated GFR > (units (unknown) date) 60 (>60) mL/min unknown) (unknown) (no (unknown) (unknown) Exam (units (unkno wn) date) unknown) (unknown) (no (unknown) (unknown) Exam Narrative: (units (unknown) date) unknown) (unknown) (no (unknown) (unknown) FINDINGS:? (units (unk nown) date) unknown) (unknown) (no (unknown) (unknown) Family History (units (unknown) date) (Reviewed 04/02/22 unknown) @ 18:59 by Willy Ventura DO) (unknown) (no (unknown) (unknown) Family/Other (units (u nknown) date) Cancer unknown) (unknown) (no (unknown) (unknown) For (units (unkno wn) date) unknown) (unknown) (no (unknown) (unknown) GASTROINTESTINAL: (units (unknown) date) See HPI unknown) (unknown) (no (unknown) (unknown) GASTROINTESTINAL: (units (unknown) date) Abdomen soft, unknown) significant pain on palpation of the right upper (unknown) (no (unknown) (unknown) GENERAL: [32] year (units (unknown) date) old patient appears unknown) stated age. Well-developed patient, in (unknown) (no (unknown) (unknown) : Denies (units (unk nown) date) dysuria, frequency, unknown) incontinence, hematuria, urinary retention. (unknown) (no (unknown) (unknown) Gallbladder:? (units ( unknown) date) Unremarkable. unknown) (unknown) (no (unknown) (unknown) General (units (unkno wn) date) unknown) (unknown) (no (unknown) (unknown) GenericComposite[P (units (unknown) date) lt Count 212 unknown) (150-400) X10^3/uL ] (unknown) (no (unknown) (unknown) GenericComposite[R (units (unknown) date) BC 4.33 unknown) (4.0-5.2) X10^6/uL ] (unknown) (no (unknown) (unknown) GenericComposite[W (units (unknown) date) BC 6.0 unknown) (4.5-11.0) X10^3/uL ] (unknown) (no (unknown) (unknown) Globulin 2.7 (units (unknown) date) (1.7-4.1) g/dL unknown) (unknown) (no (unknown) (unknown) Glucose 102 H (units (unknown) date) (70-100) mg/dL unknown) (unknown) (no (unknown) (unknown) HEAD: Atraumatic. (units (unknown) date) Normocephalic. unknown) (unknown) (no (unknown) (unknown) HEENT: Denies (units ( unknown) date) sinus pain, ear unknown) pain, sore throat, difficulty swallowing, (unknown) (no (unknown) (unknown) HPI - Abdominal (units (unknown) date) Pain unknown) (unknown) (no (unknown) (unknown) HPI narrative: (units (unknown) date) unknown) (unknown) (no (unknown) (unknown) Hct 39.5 (units (unkn own) date) (36-46) % unknown) (unknown) (no (unknown) (unknown) Heart:? No (units (unk nown) date) significant unknown) findings. (unknown) (no (unknown) (unknown) Hgb 13.7 (units (unkn own) date) (12.0-16.0) g/dL unknown) (unknown) (no (unknown) (unknown) History of Present (units (unknown) date) Illness unknown) (unknown) (no (unknown) (unknown) Hx of umbilical (units (unknown) date) hernia repair unknown) (04/18/19) (unknown) (no (unknown) (unknown) Hydrocodone (units (unk nown) date) Bitart/Acetaminophe unknown) n (Hydrocodone/Acet 5/325 Prepack) 1 bottle MISC (unknown) (no (unknown) (unknown) Hydromorphone HCl (units (unknown) date) (Hydromorphone 0.5 unknown) Mg Inj) 0.5 mg IV NOW ONE (unknown) (no (unknown) (unknown) IMPRESSION:? (units (u nknown) date) unknown) (unknown) (no (unknown) (unknown) INDICATIONS:? (units ( unknown) date) severe RUQ pain, unknown) hernia repair in January (unknown) (no (unknown) (unknown) Image quality:? (units (unknown) date) Excellent.? unknown) (unknown) (no (unknown) (unknown) Imaging Data (units (u nknown) date) unknown) (unknown) (no (unknown) (unknown) Initial Vital (units ( unknown) date) Signs unknown) (unknown) (no (unknown) (unknown) Initial Vital (units ( unknown) date) Signs: unknown) (unknown) (no (unknown) (unknown) Instructions: DI (units (unknown) date) for Hematoma unknown) (Bruise) (unknown) (no (unknown) (unknown) Ketorolac (units (unkn own) date) Tromethamine unknown) (Ketorolac 30 Mg/Ml Vial) 15 mg IV NOW ONE (unknown) (no (unknown) (unknown) Kidneys and (units (un known) date) Ureters:? unknown) Unremarkable.? ? (unknown) (no (unknown) (unknown) Homewood,Daniel (units ( unknown) date) unknown) (unknown) (no (unknown) (unknown) Lab Data (units (unkno wn) date) unknown) (unknown) (no (unknown) (unknown) Labs: (units (unkno wn) date) unknown) (unknown) (no (unknown) (unknown) Lactate 0.9 (units (unknown) date) (0.7-2.1) mmol/L unknown) (unknown) (no (unknown) (unknown) Lactate (Lactic (units (unknown) date) Acid) Stat unknown) (unknown) (no (unknown) (unknown) Lipase 264 (units (u nknown) date) (23-300) U/L unknown) (unknown) (no (unknown) (unknown) Lipase Stat (units (un known) date) unknown) (unknown) (no (unknown) (unknown) NakulJacob (units (unkno wn) date) unknown) (unknown) (no (unknown) (unknown) Liver:? There is (units (unknown) date) hepatomegaly, no unknown) discrete hepatic lesion..? ? (unknown) (no (unknown) (unknown) Loc: ED (units (unkno wn) date) unknown) (unknown) (no (unknown) (unknown) Lung bases:? (units (u nknown) date) Unremarkable. unknown) (unknown) (no (unknown) (unknown) Lymph # (Auto) (units (unknown) date) 1900 (2525-9457) unknown) /uL (unknown) (no (unknown) (unknown) Lymph % (Auto) (units (unknown) date) 32.5 (25-40) % unknown) (unknown) (no (unknown) (unknown) MCH 31.6 (units (unkn own) date) (26-34) PG unknown) (unknown) (no (unknown) (unknown) MCHC 34.6 (units (unk nown) date) (30-36) % unknown) (unknown) (no (unknown) (unknown) MCV 91.2 (units (unkn own) date) (80-100) fL unknown) (unknown) (no (unknown) (unknown) MDM - Abdominal (units (unknown) date) Pain unknown) (unknown) (no (unknown) (unknown) MR#: [id number] (units (unknown) date) unknown) (unknown) (no (unknown) (unknown) MUSCULOSKELETAL: (units (unknown) date) denies weakness, unknown) joint pain, or bony pain (unknown) (no (unknown) (unknown) Demetra Young (units (unknown) date) C??32??F??[birth year] unknown) 9 (unknown) (no (unknown) (unknown) Medical History (units (unknown) date) (Reviewed 04/02/22 unknown) @ 18:59 by Willy Ventura DO) (unknown) (no (unknown) (unknown) Rishabh Baez MD (units (unknown) date) [Physician] - unknown) (unknown) (no (unknown) (unknown) Miscellaneous: No (units (unknown) date) hernias are seen. ? unknown) ? (unknown) (no (unknown) (unknown) [place] # (Auto) 300 (units (unknown) date) (0-900) /uL unknown) (unknown) (no (unknown) (unknown) [place] % (Auto) 5.3 (units (unknown) date) (3-14) % unknown) (unknown) (no (unknown) (unknown) NECK: Trachea (units ( unknown) date) midline. Non tender unknown) (unknown) (no (unknown) (unknown) NEURO: AOx3. (units (u nknown) date) unknown) (unknown) (no (unknown) (unknown) NEUROLOGIC: Denies (units (unknown) date) weakness, headache, unknown) numbness, change in speech, confusion, (unknown) (no (unknown) (unknown) Narrative (units (unkn own) date) unknown) (unknown) (no (unknown) (unknown) Narrative: (units (unk nown) date) unknown) (unknown) (no (unknown) (unknown) Neut # (Auto) (units ( unknown) date) 3500 (3699-4162) unknown) /uL (unknown) (no (unknown) (unknown) Neut % (Auto) (units ( unknown) date) 59.2 (50-75) % unknown) (unknown) (no (unknown) (unknown) New (units (unkno wn) date) unknown) (unknown) (no (unknown) (unknown) No Action (units (unkn own) date) unknown) (unknown) (no (unknown) (unknown) No GENERAL: Denies (units (unknown) date) chills, fatigue, unknown) malaise, fever, sweats. (unknown) (no (unknown) (unknown) No Known Drug (units ( unknown) date) Allergies Allergy unknown) Verified 02/05/22 09:04 (unknown) (no (unknown) (unknown) Ondansetron HCl (units (unknown) date) (Ondansetron 4 Mg unknown) Odt Prepack) 1 bottle MISC SEEINSTR ONE (unknown) (no (unknown) (unknown) Ondansetron HCl (units (unknown) date) (Ondansetron 4 Mg/2 unknown) Ml Inj) 4 mg IV NOW ONE (unknown) (no (unknown) (unknown) Ordered: (units (unkno wn) date) unknown) (unknown) (no (unknown) (unknown) Ordering Provider: (units (unknown) date) Willy Ventura D.O. unknown) (unknown) (no (unknown) (unknown) Orders (units (unkno wn) date) unknown) (unknown) (no (unknown) (unknown) Oxygen Delivery (units (unknown) date) Method Room Air unknown) (unknown) (no (unknown) (unknown) PELVIS: (units (unkno wn) date) unknown) (unknown) (no (unknown) (unknown) PROCEDURE:? CT (units (unknown) date) ABDOMEN PELVIS W unknown) CON (unknown) (no (unknown) (unknown) PSYCHIATRIC: No (units (unknown) date) concerning unknown) psychosocial issues. (unknown) (no (unknown) (unknown) Pancreas:? (units (unk nown) date) Unremarkable.? ? unknown) (unknown) (no (unknown) (unknown) Patient (units (unkno wn) date) Disposition: Home unknown) (unknown) (no (unknown) (unknown) Patient History (units (unknown) date) unknown) (unknown) (no (unknown) (unknown) Patient: (units (unkno wn) date) Demetra Young C unknown) MR#: M (unknown) (no (unknown) (unknown) Patient: (units (unkno wn) date) Demetra Young C unknown) (unknown) (no (unknown) (unknown) Pelvic Nodes: No (units (unknown) date) enlarged lymph unknown) nodes.? (unknown) (no (unknown) (unknown) Pelvic Organs:? (units (unknown) date) Unremarkable.? ? unknown) (unknown) (no (unknown) (unknown) Pelvis Ultrasound (units (unknown) date) (Signed) unknown) (unknown) (no (unknown) (unknown) Peritoneum:? No (units (unknown) date) abnormal unknown) intraperitoneal fluid.? No free air.? (unknown) (no (unknown) (unknown) Please understand (units (unknown) date) that we cannot unknown) provide further refills of narcotics or (unknown) (no (unknown) (unknown) Point of care (units ( unknown) date) testing: unknown) (unknown) (no (unknown) (unknown) Potassium 4.1 (units (unknown) date) (3.4-5.1) mmol/L unknown) (unknown) (no (unknown) (unknown) Test (units (unknown) date) Results Negative unknown) (unknown) (no (unknown) (unknown) Prescriptions: (units (unknown) date) unknown) (unknown) (no (unknown) (unknown) Procedure: CT (units ( unknown) date) abdomen pelvis w unknown) con (unknown) (no (unknown) (unknown) Pulse Oximetry 99 (units (unknown) date) 04/02/22 18:09 unknown) (unknown) (no (unknown) (unknown) Pulse Oximetry 100 (units (unknown) date) 99 unknown) (unknown) (no (unknown) (unknown) Pulse Rate 70 (units (unknown) date) 04/02/22 18:09 unknown) (unknown) (no (unknown) (unknown) Pulse Rate 67 70 (units (unknown) date) unknown) (unknown) (no (unknown) (unknown) RDW 12.4 (units (unkn own) date) (11.6-14.8) % unknown) (unknown) (no (unknown) (unknown) RESPIRATORY: Clear (units (unknown) date) to auscultation. unknown) Breath sounds equal bilaterally. No wheezes, (unknown) (no (unknown) (unknown) RESPIRATORY: (units (u nknown) date) Denies dyspnea, unknown) cough, wheezing, hemoptysis, sputum. (unknown) (no (unknown) (unknown) Referrals: (units (unk nown) date) unknown) (unknown) (no (unknown) (unknown) Related Data (units (u nknown) date) unknown) (unknown) (no (unknown) (unknown) Relief) (units (unkno wn) date) unknown) (unknown) (no (unknown) (unknown) Respiratory Rate (units (unknown) date) 20 unknown) (unknown) (no (unknown) (unknown) Result diagrams: (units (unknown) date) unknown) (unknown) (no (unknown) (unknown) Review of Systems (units (unknown) date) unknown) (unknown) (no (unknown) (unknown) SKIN: Denies rash, (units (unknown) date) skin lesions, or unknown) other (unknown) (no (unknown) (unknown) SKIN: No rash or (units (unknown) date) erythema of visible unknown) areas (unknown) (no (unknown) (unknown) Seasonal allergies (units (unknown) date) unknown) (unknown) (no (unknown) (unknown) Signed By: (units (unk nown) date) unknown) (unknown) (no (unknown) (unknown) Smoking Status: (units (unknown) date) Never smoker unknown) (unknown) (no (unknown) (unknown) Smoking Status: (units (unknown) date) Never smoker unknown) (unknown) (no (unknown) (unknown) Social History (units (unknown) date) (Reviewed 04/02/22 unknown) @ 18:59 by Willy Ventura DO) (unknown) (no (unknown) (unknown) Sodium 138 (units (u nknown) date) (137-145) mmol/L unknown) (unknown) (no (unknown) (unknown) Sodium Chloride (units (unknown) date) (Normal Saline unknown) 0.9%) 1,000 mls @ 1,000 mls/hr IV BOLUS ONE (unknown) (no (unknown) (unknown) Sodium Chloride (units (unknown) date) (Normal Saline unknown) 0.9%) 1,000 mls @ 150 mls/hr IV CONT RYAN (unknown) (no (unknown) (unknown) Spleen:? (units (unkno wn) date) Unremarkable.? ? unknown) (unknown) (no (unknown) (unknown) Stated Complaint: (units (unknown) date) Post ABD surgery unknown) severe pain (unknown) (no (unknown) (unknown) Status post (units (un known) date) unknown) (unknown) (no (unknown) (unknown) Status post (units (un known) date) appendectomy unknown) (unknown) (no (unknown) (unknown) Status post (units (un known) date) tonsillectomy unknown) (unknown) (no (unknown) (unknown) Stomach and (units (un known) date) Bowel:? There is no unknown) bowel obstruction.? No gastric or small bowel (unknown) (no (unknown) (unknown) Substance Use (units ( unknown) date) Type: marijuana unknown) (unknown) (no (unknown) (unknown) Surgical History (units (unknown) date) (Reviewed 04/02/22 unknown) @ 18:59 by Willy Ventura DO) (unknown) (no (unknown) (unknown) TECHNIQUE:? (units (un known) date) unknown) (unknown) (no (unknown) (unknown) Telemetry Strips (units (unknown) date) unknown) (unknown) (no (unknown) (unknown) Temperature 98.3 F (units (unknown) date) unknown) (unknown) (no (unknown) (unknown) Time Seen by (units (u nknown) date) Provider: 04/02/22 unknown) 18:13 (unknown) (no (unknown) (unknown) Total Bilirubin (units (unknown) date) 0.5 (0.2-1.3) unknown) mg/dL (unknown) (no (unknown) (unknown) Total Protein (units ( unknown) date) 7.1 (6.3-8.2) unknown) g/dL (unknown) (no (unknown) (unknown) Urine Specific (units (unknown) date) Hosmer 1.03 unknown) (unknown) (no (unknown) (unknown) Ventral Wall: ? No (units (unknown) date) hernias.? unknown) Asymmetrically enlarged right anterior abdominal (unknown) (no (unknown) (unknown) Vessels:? Aorta (units (unknown) date) and inferior vena unknown) cava are normal in size.? (unknown) (no (unknown) (unknown) Visit Report (units (u nknown) date) Forms: Patient unknown) Portal/API (unknown) (no (unknown) (unknown) Vital Signs (units (un known) date) unknown) (unknown) (no (unknown) (unknown) Vital signs: (units (u nknown) date) unknown) (unknown) (no (unknown) (unknown) While on these (units (unknown) date) medications you unknown) cannot drive or operate heavy machinery. (unknown) (no (unknown) (unknown) Aakash Bauer (units (unk nown) date) unknown) (unknown) (no (unknown) (unknown) You have been (units ( unknown) date) prescribed a short unknown) course of narcotic medications. 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 Mild (units (unk nown) date) constipation.? unknown) (unknown) (no (unknown) (unknown) albuterol sulfate (units (unknown) date) 90 mcg/actuation 2 unknown) puff inhalation Q4-6H PRN asthma 04/12/19 (unknown) (no (unknown) (unknown) alcohol intake (units (unknown) date) frequency: unknown) holidays/special occasions only (unknown) (no (unknown) (unknown) alcohol intake: (units (unknown) date) current unknown) (unknown) (no (unknown) (unknown) anterior to left (units (unknown) date) hepatic lobe is unknown) seen series 2, image 21 with overlying surgical (unknown) (no (unknown) (unknown) bases to the pubic (units (unknown) date) symphysis.? Coronal unknown) and sagittal reformats were performed.? (unknown) (no (unknown) (unknown) chills. She (units (u nknown) date) denies any change unknown) in bowel habits. She denies any specific or (unknown) (no (unknown) (unknown) concerning (units (unk nown) date) symptoms, such as unknown) [fever greater than 101 F, shaking chills, (unknown) (no (unknown) (unknown) controlled (units (unk nown) date) substances through unknown) the ED and your pain management will need to be (unknown) (no (unknown) (unknown) dizziness. (units (unk nown) date) unknown) (unknown) (no (unknown) (unknown) drinking but (units (u nknown) date) states motion, unknown) palpation as well as deep breaths significantly (unknown) (no (unknown) (unknown) dysuria, frequency (units (unknown) date) or urgency unknown) (unknown) (no (unknown) (unknown) estradiol 30 (units (u nknown) date) mcg(21)/iron 75 unknown) mg(7) (unknown) (no (unknown) (unknown) fat stranding is (units (unknown) date) seen in right lower unknown) quadrant abdomen.? Mild fecal stasis in the (unknown) (no (unknown) (unknown) fluticasone (units (un known) date) propionate 50 2 unknown) spray intranasal DAILY 04/12/19 02/05/22 (unknown) (no (unknown) (unknown) follow-up in the (units (unknown) date) clinic unknown) (unknown) (no (unknown) (unknown) fracture. (units (unkn own) date) unknown) (unknown) (no (unknown) (unknown) hepatic lobe deep (units (unknown) date) to a surgical scar unknown) suggestive of postsurgical changes and (unknown) (no (unknown) (unknown) hernia repair. She (units (unknown) date) states that she had unknown) been feeling fine until about a week ago (unknown) (no (unknown) (unknown) household members: (units (unknown) date) spouse and unknown) children (unknown) (no (unknown) (unknown) hydrocodone 5 (units ( unknown) date) mg-acetaminophen unknown) 325 1 tab PO Q4-6H PRN pain #20 tabs 04/02/22 (unknown) (no (unknown) (unknown) ibuprofen 200 mg (units (unknown) date) tablet 400 mg PO unknown) Q6H #60 tabs 01/21/22 (unknown) (no (unknown) (unknown) icterus. No (units (un known) date) injection or unknown) drainage. (unknown) (no (unknown) (unknown) in [place]] (units (unknown) date) unknown) (unknown) (no (unknown) (unknown) in follow-up. We (units (unknown) date) will electronically unknown) transmitted a copy of today's note (unknown) (no (unknown) (unknown) intact no (units (unkn own) date) overlying erythema, unknown) warmth, induration or fluctuance, nondistended. (unknown) (no (unknown) (unknown) know that you were (units (unknown) date) seen in the unknown) emergency department and we would like you seen (unknown) (no (unknown) (unknown) mcg/actuation (units ( unknown) date) nasal unknown) (unknown) (no (unknown) (unknown) memorable moment (units (unknown) date) that seems to have unknown) exacerbated the pain. She denies any (unknown) (no (unknown) (unknown) mesenteric (units (unk nown) date) unknown) (unknown) (no (unknown) (unknown) mg tablet (units (unkn own) date) unknown) (unknown) (no (unknown) (unknown) mild but has been (units (unknown) date) gradually unknown) worsening. Today she is been having severe pain (unknown) (no (unknown) (unknown) mild distress. (units (unknown) date) unknown) (unknown) (no (unknown) (unknown) multivitamin 1 cap (units (unknown) date) PO DAILY 04/12/19 unknown) 02/05/22 (unknown) (no (unknown) (unknown) norethindrone 1.5 (units (unknown) date) mg-ethinyl 1 tab PO unknown) DAILY 04/10/19 02/05/22 (unknown) (no (unknown) (unknown) number of (units (unkn own) date) children: 2 unknown) (unknown) (no (unknown) (unknown) of mA and/or kV (units (unknown) date) according to unknown) patient size.? (unknown) (no (unknown) (unknown) ondansetron 4 mg (units (unknown) date) disintegrating 4 mg unknown) PO TID-QID PRN nausea and 04/02/22 (unknown) (no (unknown) (unknown) particularly with (units (unknown) date) any motion. She unknown) denies any provocation with eating or (unknown) (no (unknown) (unknown) physical, imaging (units (unknown) date) and labs, unknown) symptomatic treatment only and no need for any (unknown) (no (unknown) (unknown) possible (units (unkno wn) date) unknown) (unknown) (no (unknown) (unknown) potentially (units (un known) date) dangerous and unknown) addictive medications that should be used carefully. (unknown) (no (unknown) (unknown) prescription. (units ( unknown) date) unknown) (unknown) (no (unknown) (unknown) prochlorperazine (units (unknown) date) maleate 10 mg 10 mg unknown) PO Q6H PRN nausea and 01/21/22 (unknown) (no (unknown) (unknown) radiation dose (units (unknown) date) reduction, the unknown) following was used:? automated exposure control, (unknown) (no (unknown) (unknown) repair at our (units ( unknown) date) facility in January unknown) presents with severe pain in the region of her (unknown) (no (unknown) (unknown) scarring. (units (unkn own) date) unknown) (unknown) (no (unknown) (unknown) seen.? No colonic (units (unknown) date) wall thickening.? unknown) No abscess collection. (unknown) (no (unknown) (unknown) seizures, (units (unkn own) date) incoordination. unknown) (unknown) (no (unknown) (unknown) significant (units (un known) date) intervention, unknown) recommends pain control, return precautions and (unknown) (no (unknown) (unknown) small (units (unkno wn) date) intramuscular unknown) hematoma.? (unknown) (no (unknown) (unknown) spray,suspension (units (unknown) date) unknown) (unknown) (no (unknown) (unknown) spray,suspension (units (unknown) date) (Flonase Allergy unknown) (unknown) (no (unknown) (unknown) tablet (units (unkno wn) date) unknown) (unknown) (no (unknown) (unknown) tablet (Compazine) (units (unknown) date) vomiting #30 tabs unknown) (unknown) (no (unknown) (unknown) tablet vomiting (units (unknown) date) #10 tabs unknown) (unknown) (no (unknown) (unknown) the lung (units (unkno wn) date) unknown) (unknown) (no (unknown) (unknown) thickening.? (units (u nknown) date) Appendix is not unknown) definitively identified.? No wall thickening or (unknown) (no (unknown) (unknown) this. Many people (units (unknown) date) get constipated on unknown) narcotic medications so it would be (unknown) (no (unknown) (unknown) through your (units (u nknown) date) Primary Care unknown) Provider (unknown) (no (unknown) (unknown) tonsillar (units (unkn own) date) hypertrophy or unknown) exudate. Airway patent. (unknown) (no (unknown) (unknown) wall (units (unkno wn) date) unknown) (unknown) (no (unknown) (unknown) wall muscle (units (un known) date) unknown) (unknown) (no (unknown) (unknown) when she started (units (unknown) date) noticing pain in unknown) her right upper quadrant which was initially (unknown) (no (unknown) (unknown) worsen the pain. (units (unknown) date) She denies any unknown) radiation of the pain. She is had no fever or (unknown) (no (unknown) (unknown) worsening pain, (units (unknown) date) persistent vomiting unknown) or other bothersome symptoms] Social History date description facility (no date) Never smoked tobacco ([facility] Vital Signs date measurement value units [id number]+0000 BP_diastolic BP_diastolic 58 mm[H g] 43808888477949+0000 BP_systolic BP_systolic 98 mm[Hg] 35155907035798+0000 respiration_rate respiration_rate 15 /min [id number]+0000 BP_diastolic BP_diastolic 79 mm[H g] 84640350228686+0000 BP_systolic BP_systolic 115 mm[Hg] 38260257103491+0000 heart_rate heart_rate 78 /min +0000 respiration_rate respiration_rate 16 /min [id number]+0000 temperature_metric temperature_metric 37.11 C [id number]+0000 temperature_standard temperature_standard 9 8.8 F [id number]+0000 weight_metric weight_metric 61.23 kg [id number]+0000 weight_standard weight_standard 135 lb [id number]+0000 BMI BMI 22.3 kg/m2 34485599287988+0000 heart_rate heart_rate 76 /min [id number]+0000 height_metric height_metric 162.56 cm +0000 height_standard height_standard 64 in +0000 temperature_metric temperature_metric 36.33 C +0000 temperature_standard temperature_standard 9 7.4 F +0000 weight_metric weight_metric 26.75 kg [id number]+0000 weight_standard weight_standard 58.97 lb +0000 BMI BMI 22.3 kg/m2 [id number]+0000 BP_diastolic BP_diastolic 74 mm[H g] +0000 BP_systolic BP_systolic 130 mm[Hg] 67437626168742+0000 heart_rate heart_rate 67 /min +0000 height_metric height_metric 162.56 cm +0000 height_standard height_standard 64 in +0000 respiration_rate respiration_rate 20 /min +0000 temperature_metric temperature_metric 36.83 C +0000 temperature_standard temperature_standard 9 8.3 F +0000 weight_metric weight_metric 26.75 kg +0000 weight_standard weight_standard 58.97 lb
[2022-04-08 16:07] LABS: BASOPHILS % (AUTO) 0.6 %; EOSINOPHILS % (AUTO) 0.6 %; HCT - HEMATOCRIT 42.2 % (37.0-47.0); HGB - HEMOGLOBIN 14.8 g/dL (12.0-16.0); LYMPHOCYTES # (AUTO) 1.6 10^3/uL (1.5-3.5); LYMPHOCYTES % (AUTO) 22.9 %; MEAN CORPUSCULAR HGB CONC 35.1 g/dL (32.0-36.0); MEAN CORPUSCULAR VOLUME 91.1 fL (81.0-99.0); MEAN PLATELET VOLUME 10.7 fL (7.9-10.8); MONOCYTES # (AUTO) 0.4 10^3/uL (0.0-1.0); MONOCYTES % (AUTO) 5.5 %; NEUTROPHILS % (AUTO) 70.3 %; PLT - PLATELET COUNT 234 10^3/uL (130-450); RED BLOOD COUNT 4.63 10^6/uL (4.20-5.40); RED CELL DISTRIBUTION WIDTH 11.8 % (12.0-15.0); WHITE BLOOD COUNT 7.1 x10^3/uL (4.8-10.8)
[2022-04-08 16:20] LABS: ALBUMIN 4.7 g/dL (3.2-5.5); ALBUMIN/GLOBULIN RATIO 1.6 (1.0-2.2); BILIRUBIN,TOTAL 1.9 mg/dL (0.2-1.0); CALCIUM 9.7 mg/dL (8.5-10.3); CREATININE 0.8 mg/dL (0.4-1.0); POTASSIUM 4.1 mmol/L (3.5-5.0); TOTAL PROTEIN 7.7 g/dL (6.7-8.2)
[2022-04-08 17:32] LABS: BILIRUBIN,URINE NEGATIVE (NEGATIVE); GLUCOSE, URINE (UA) NEGATIVE (NEGATIVE); KETONES,URINE (UA) 40 mg/dL (NEGATIVE); LEUKOCYTE ESTERASE, URINE NEGATIVE (NEGATIVE); NITRITE,URINE NEGATIVE (NEGATIVE); OCCULT BLOOD,URINE NEGATIVE (NEGATIVE); PROTEIN,URINE NEGATIVE (NEGATIVE); UROBILINOGEN,URINE 0.2 (NORMAL) E.U./dL (NORMAL)
[2022-04-08 17:33] LABS: CLARITY,URINE CLEAR (CLEAR)
[2022-04-08 17:35] LABS: HCG UR QUAL NEGATIVE
[2022-04-08] MEDS ORDERED: ONDANSETRON 4 MG/2 ML VIAL IVP STA (18:01)
[2022-04-08] MEDS ORDERED: HYDROmorphone 1 MG/ML CARPUJECT IVP STA (18:01)
[2022-04-08] MEDS ORDERED: SODIUM CHLORIDE 0.9% 1,000 ML IV STA (18:01)
--- NOTE | 2022-04-08 18:03 | ED Physician Documentation ---
History of Present Illness - Stated complaint Stated Complaint: POST OP,NAUSEA,VOMIT - Chief complaint Chief Complaint: Abd Pain - Additonal information Additional information: 32-year-old female presents emergency department for evaluation of worsening right upper quadrant abdominal pain and nausea and vomiting. Patient underwent an abdominal hernia repair on January 21 at [facility]. Postoperatively she did have a fluid collection which was drained by the surgeon. Last week she began having worsening right upper quadrant abdominal pain and she went to [facility]. Reportedly a CT scan was completed and it showed a hematoma that they felt would resolve. Today when patient was at work she had acutely worsening symptoms and has been unable to keep any food or liquid down thus she presents today to the emergency department. She has had no fevers, no diarrhea. No melena or hematochezia. Review of Systems Constitutional: denies: Fever, Chills Throat: reports: Reviewed and negative Cardiac: reports: Chest pain / pressure Respiratory: reports: Reviewed and negative GI: reports: Abdominal Pain, Nausea, Vomiting. 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 : None HEENT: None Psych: Anxiety Musculoskeletal: None Derm: None - Past Surgical History Past Surgical History: Yes General: Appendectomy /INSPECTOR RECEIVING: section HEENT: Tonsil/Adenoidectomy - Present Medications Home Medications: Ambulatory Orders Medication Instructions Recorded Confirmed norethindrone ac-eth estradioL 02/14/20 [Microgestin 21 1.5-30 Tab] HYDROcod/ACETAM 5/325 [[place] 5/325] 1 ea PO Q6H PRN #18 tablet 04/01/21 dexAMETHasone [Decadron] 4 mg PO DAILY #5 tablet 04/01/21 tiZANidine [Zanaflex] 4 mg PO Q8H PRN #25 tablet 04/01/21 HYDROcod/ACETAM 5/325 [[place] 5/325] 1 ea PO Q6H PRN #18 tablet 06/04/21 Ondansetron Odt [Zofran] 4 mg TL Q6H PRN #10 tablet 06/04/21 dexAMETHasone [Decadron] 4 mg PO DAILY #5 tablet 06/04/21 tiZANidine [Zanaflex] 4 mg PO Q8H PRN #25 tablet 06/04/21 Ondansetron Odt [Zofran Odt] 4 mg TL Q6H PRN #10 tablet 04/08/22 oxyCODONE [Roxicodone] 5 mg PO TID PRN #10 tablet 04/08/22 - Allergies Allergies/Adverse Reactions: Allergies Allergy/AdvReac Type Severity Reaction Status Date / Time No Known Drug Allergies Allergy Verified 04/08/22 15:52 - Social History Does the pt smoke?: No Smoking Status: Never smoker Does the pt drink ETOH?: Yes Does the pt have substance abuse?: Yes - Immunizations Immunizations are current?: Yes - POLST Patient has POLST: No PD ED PE NORMAL - General General: Alert and oriented X 3, No acute distress, Well developed/nourished - HEENT HEENT: Atraumatic - Cardiac Cardiac: RRR, No murmur - Respiratory Respiratory: No respiratory distress, Clear bilaterally - Abdomen Abdomen: Normal bowel sounds, Soft. No: Non tender (Tenderness with palpation of the right upper quadrant. Noted postoperative surgical incision well-healed. 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 Eye Opening: Spontaneous Motor: Obeys Commands Verbal: Oriented GCS Score: 15 Results - Vitals Vitals: Vital Signs - 24 hr 04/08/22 04/08/22 04/08/22 15:48 17:28 19:09 Temperature 36.5 C Heart Rate 64 66 69 Respiratory 16 16 20 Rate Blood Pressure 108/70 119/75 105/66 O2 Saturation 100 99 100 Oxygen O2 Source Room air - Labs Labs: Laboratory Tests 04/08/22 04/08/22 04/08/22 16:04 16:04 17:28 WBC 7.1 RBC 4.63 Hgb 14.8 Hct 42.2 MCV 91.1 MCH 32.0 H MCHC 35.1 RDW 11.8 L Plt Count 234 MPV 10.7 Neut # (Auto) 5.0 Lymph # (Auto) 1.6 [place] # (Auto) 0.4 Eos # (Auto) 0.0 Baso # (Auto) 0.0 Absolute Nucleated RBC 0.00 Nucleated RBC % 0.0 Sodium 135 Potassium 4.1 Chloride 98 L Carbon Dioxide 28 Anion Gap 9.0 BUN 14 Creatinine 0.8 Estimated GFR (MDRD) 83 L Glucose 86 Calcium 9.7 Total Bilirubin 1.9 H AST 36 ALT 41 Alkaline Phosphatase 38 L Total Protein 7.7 Albumin 4.7 Globulin 3.0 Albumin/Globulin Ratio 1.6 Lipase 31 Urine Color YELLOW Urine Clarity CLEAR Urine pH 6.0 Ur Specific [place] 1.020 Urine Protein NEGATIVE Urine Glucose (UA) NEGATIVE Urine Ketones 40 H Urine Occult Blood NEGATIVE Urine Nitrite NEGATIVE Urine Bilirubin NEGATIVE Urine Urobilinogen 0.2 (NORMAL) Ur Leukocyte Esterase NEGATIVE Ur Microscopic Review NOT INDICATED Urine Culture Comments NOT INDICATED Urine HCG, Qual NEGATIVE - Rads (name of study) abd US Radiology: Prelim report reviewed (4 mm nonobstructing right kidney stone. Gallbladder within normal limits without findings of obstructing stone lesions or cholecystitis. Avascular hypoechoic linear focus 2.9 x 0.6 cm in the area of the hernia repair questionable hematoma?) CT abd Radiology: Final report received (No evidence of hematoma. Dilation of the duodenum With abrupt transition at the midline. Differential considerations include obstructing neoplasm versus superior MSA syndrome) PD MEDICAL DECISION MAKING - ED course Complexity details: reviewed results, re-evaluated patient, considered differential, d/w patient, d/w technical assistance consultant (Will) ED course: 32-year-old female presents emergency department for evaluation of right upper quadrant abdominal pain. This is near the site of recent abdominal hernia repair January 21 at [facility]. She was seen for similar pain 1 week ago at [facility] reportedly had a CT scan done which she reports showed a hematoma. She had been doing well until this morning when she began developing abdominal pain at work with uncontrolled nausea and vomiting. On presentation to the emergency department she is tender in the right upper quadrant without guarding or rebound. Screening labs showed no leukocytosis or worrisome electrolyte abnormality. Vital signs were unremarkable without fever. Screening abdominal ultrasound showed no findings to suggest cholecystitis. A repeat CT was then obtained and it does not show a fluid collection, seroma or hematoma. However we do note dilation of the second portion of the duodenum. Th is finding could be concerning for a neoplastic process versus SMA syndrome. Recommendation was for outpatient MR angiography which is not available at this time I discussed this case with on-call surgeon at [facility] Dr. Solis. He is uncertain if the Duodenal dilation is related to the hernia repair but does not feel the patient warrants emergent transfer or further work-up tonight in [facility] emergency department. The patient is scheduled to see her surgeon in 48 hours in office. Patient will be discharged with prescription for his oxycodone and Zofran. Recommend clear liquids for the next 24 hours. If symptoms markedly worsening she will return immediately to the ER. I am prescribing a short course of short-acting opioid pain medication for this patient. I have reviewed the patients AD WRITER and no concerning findings were noted. I have discussed that the opioids are for short term therapy only, and will not be refilled from the ED. Departure - Departure Disposition: Home, Self Care Clinical Impression: RUQ abdominal pain, Dilation of duodenum Condition: Stable Record reviewed to determine appropriate education?: Yes Prescriptions: oxyCODONE [Roxicodone] 5 mg PO TID PRN #10 tablet PRN Reason: Pain Ondansetron Odt [Zofran Odt] 4 mg TL Q6H PRN #10 tablet PRN Reason: Nausea / Vomiting Comments: Demetra you are seen today for pain in the right upper quadrant of your abdomen as well as nausea and vomiting. This is near the site where you had your hernia repair in January. He would reported to us that a recent CT scan at [facility] showed a hematoma in this region. Today your screening labs were all essentially normal with the exception of a mild bilirubin elevation. We did do an abdominal ultrasound that showed no findings of cholecystitis or gallbladder dysfunction. However we did do a CT of the abdomen and do see that you have a dilation of your duodenum. We do not see a fluid collection, hematoma or seroma. The cause of this Dilation is not clear though it certainly needs further work- up. You may benefit from upper EGD or a nonemergent outpatient MR angiography of the abdomen. Do not miss the follow-up appointment that you have with Dr. Beaz on Wednesday. Over the next 24 hours I recommend frequent sips of clear liquids only. If your pain and nausea is resolving then you could advance your diet with simple foods such as bananas, rice, applesauce and toast. If at any point you feel that your symptoms are not well managed or your pain is worsening you will need to return immediately to the emergency department
[2022-04-08] MEDS ORDERED: PROCHLORPERAZINE 10 MG/2 ML VIAL IVP STA (18:54)
[2022-04-08] MEDS ORDERED: fentaNYL 100 MCG/2 ML VIAL IVP STA (18:54)
--- NOTE | 2022-04-08 19:07 | Ultrasound Report ---
PROCEDURE: Abdomen Limited INDICATIONS: RUQ pain; n/v elevated bili TECHNIQUE: Real-time focused scanning was performed of the abdomen, with image documentation. COMPARISON: None FINDINGS: Liver: Normal is size and echotexture. No evidence of focal mass lesion. No intra hepatic biliary ductal dilatation. Gallbladder: Sonolucent without cholelithiasis. No gallbladder wall thickening. No pericholecystic fluid or Aguila's sign. Common Bile Duct: 3.5 mm. Pancreas: Unremarkable as visualized. Right Kidney: Nonobstructing 4 mm right renal calculus noted. No hydronephrosis. Additionally, there is a hypoechoic linear focus measuring 2.9 x 0.6 cm at the area of the prior vent ral hernia repair. IMPRESSION: Possible subcutaneous small hematoma at site of hernia repair ventrally. Consider CT correlation. Reviewed by: Barry Matute MD on 04/08/2022 6:06 PM JACQUELIN Approved by: Barry Matute MD on 04/08/2022 6:06 PM AKRICARDO Station ID: [id number]
--- NOTE | 2022-04-08 19:34 | CT Report ---
PROCEDURE: Abdomen/Pelvis WO INDICATIONS: ? hematoma at site of hernia repair RUQ TECHNIQUE: Noncontrast 5 mm thick sections acquired from the diaphragms to the symphysis. 5 mm coronal and sagi ttal reformats were then performed. For radiation dose reduction, the following was used: automated exposure control, adjustment of mA and/or kV according to patient size. COMPARISON: CT dated 06/04/2021 FINDINGS: Image quality: Excellent. ABDOMEN: Lung bases: 3 mm calcification within the left anterolateral lung base. Lung bases are otherwise nic ar. Heart size is normal. Solid organs: Liver and spleen are normal in size. Gallbladder demonstrates vague dependent high de nsity within its lumen Pancreas is normal in contours. No adrenal nodules. Kidneys are normal in s ize, without hydronephrosis or nephrolithiasis. Peritoneum and bowel: There is moderate dilatation of the second portion of the duodenum, with abrupt transition at the midline. No free fluid or air. Appendix is not seen. No evidence of appendicitis . Nodes and vessels: No retroperitoneal or mesenteric adenopathy by size criteria. Aorta and inferior vena cava are normal in caliber. Miscellaneous: No ventral hernias. Mild facet and within the subcutaneous fat of the right anterior abdominal wall, compatible with postsurgical sequelae. PELVIS: Genitourinary: Bladder wall thickness is normal. Miscellaneous: No inguinal hernias or adenopathy. Bones: No suspicious bony lesions. No vertebral body compression fractures. IMPRESSION: 1. Postsurgical sequelae. No evidence of hematoma. 2. Dilatation of the duodenum as described above. Differential considerations include obstructing brooke plasm versus superior mesenteric artery syndrome. This could be further assessed with nonemergent out patient follow-up MR angiography of the abdomen, if clinically indicated. 3. Appendix not seen. No evidence of appendicitis. 4. Findings suggestive of cholelithiasis. No evidence of cholecystitis. Reviewed by: Nohemy Reynaga MD on 04/08/2022 7:32 PM PDT Approved by: Nohemy Reynaga MD on 04/08/2022 7:32 PM PDT Station ID: [id number]
[2022-04-08] MEDS ORDERED: ONDANSETRON ODT 4 MG Prepack 2 TL PRN (20:27)
[2022-04-08] MEDS ORDERED: oxyCODONE/ACET 5/325 Prepack 4 PO STA (20:27)
[2022-04-08 20:52] VITALS: BP 100/60
== END 2022-04-08 20:52 | disposition home or self-care (01) ==
LOC: ED 15:14
DX: R10.11 Right upper quadrant pain (principal); K31.89 Other diseases of stomach and duodenum
CPT/HCPCS: 36415; 74176; 76705; 80053; 81003; 81025; 83690; 85025; 96374; 96375; 99284; J1170; 81001; 87086

== ENCOUNTER 2022-12-03 14:04 | Outpatient (CLI) | payer OTHER | END 2022-12-03 23:59 | disposition critical access hospital (66) | LOC: EMS 14:04 | DX: R55 Syncope and collapse (principal) | CPT/HCPCS: A0425; A0427 ==

== ENCOUNTER 2022-12-03 14:12 | Emergency (ER) | payer OTHER ==
[2022-12-03] MEDS ORDERED: HYDROmorphone 1 MG/ML CARPUJECT IVP STA ×2 (14:20→15:24)
[2022-12-03] MEDS ORDERED: SODIUM CHLORIDE 0.9% 1,000 ML IV STA (14:20)
--- NOTE | 2022-12-03 14:23 | ED Physician Documentation ---
History of Present Illness - Stated complaint Stated Complaint: NEAR SYNCOPE - Chief complaint Chief Complaint: Neuro - History obtained from History obtained from: Patient, EMS - Additonal information Additional information: 32-year-old woman has had a lot of problems in the last year. Had diaphragmatic hernia repair last January and more recently has had about a 20 pound unintended weight [place]. [place] a pending referral to GI. Her doctor ordered blood work to be done today and she had blood drawn at the lab. [place] went to [place] to eat and then was driving and started to feel significant upper abdominal pain and then had a syncopal episode. She vomited once. At this point she only complains of upper abdominal pain which is persistent with her diaphragmatic hernia and nausea which is improved after the administration of 4 mg of Zofran IV on the way here by EMS. PD PAST MEDICAL HISTORY - Past Medical History Cardiovascular: None Respiratory: Asthma Neuro: Migraines Endocrine/Autoimmune: None GI: None STUFFER: Other : None HEENT: None Psych: Anxiety Musculoskeletal: None Derm: None - Past Surgical History Past Surgical History: Yes General: Appendectomy /STUFFER: section HEENT: Tonsil/Adenoidectomy - Present Medications Home Medications: Ambulatory Orders Medication Instructions Recorded Confirmed norethindrone ac-eth estradioL 02/14/20 [Microgestin 21 1.5-30 Tab] HYDROcod/ACETAM 5/325 [[place] 5/325] 1 ea PO Q6H PRN #18 tablet 04/01/21 dexAMETHasone [Decadron] 4 mg PO DAILY #5 tablet 04/01/21 tiZANidine [Zanaflex] 4 mg PO Q8H PRN #25 tablet 04/01/21 HYDROcod/ACETAM 5/325 [[place] 5/325] 1 ea PO Q6H PRN #18 tablet 06/04/21 Ondansetron Odt [Zofran] 4 mg TL Q6H PRN #10 tablet 06/04/21 dexAMETHasone [Decadron] 4 mg PO DAILY #5 tablet 06/04/21 tiZANidine [Zanaflex] 4 mg PO Q8H PRN #25 tablet 06/04/21 Ondansetron Odt [Zofran Odt] 4 mg TL Q6H PRN #10 tablet 04/08/22 oxyCODONE [Roxicodone] 5 mg PO TID PRN #10 tablet 04/08/22 HYDROcod/ACETAM 5/325 [[place] 5/325] 1 - 2 tab PO Q6H PRN #15 tablet 12/03/22 Omeprazole 40 mg PO DAILY #30 cap 12/03/22 Ondansetron Odt [Zofran] 4 mg TL Q6H PRN #10 tablet 12/03/22 - Allergies Allergies/Adverse Reactions: Allergies Allergy/AdvReac Type Severity Reaction Status Date / Time No Known Drug Allergies Allergy Verified 04/08/22 15:52 - Social History Does the pt smoke?: No Smoking Status: Never smoker Does the pt drink ETOH?: Yes Does the pt have substance abuse?: Yes - Immunizations Immunizations are current?: Yes - POLST Patient has POLST: No PD ED PE NORMAL - Vitals Vital signs reviewed: Yes - General General: Alert and oriented X 3, No acute distress - HEENT HEENT: PERRL, EOMI - Neck Neck: Supple, no meningeal sign, No bony TTP - Cardiac Cardiac: RRR, No murmur - Respiratory Respiratory: No respiratory distress, Clear bilaterally - Abdomen Abdomen: Normal bowel sounds, Soft, Non tender - Back Back: No CVA TTP, No spinal TTP - Derm Derm: Normal color, Warm and dry - Extremities Extremities: No edema, No calf tenderness / cord - Neuro Neuro: Alert and oriented X 3, Normal speech Results - Vitals Vitals: Vital Signs - 24 hr 12/03/22 12/03/22 12/03/22 14:15 14:21 15:41 Temperature 37.6 C Heart Rate 73 77 Heart Rate [ 63 Sitting] Heart Rate [ 66 Supine] Respiratory 20 18 Rate Blood Pressure 121/100 H Blood Pressure 119/81 H [Sitting] Blood Pressure 108/17 L [Supine] O2 Saturation 99 100 12/03/22 17:30 Temperature Heart Rate 78 Heart Rate [ Sitting] Heart Rate [ Supine] Respiratory 16 Rate Blood Pressure 101/61 Blood Pressure [Sitting] Blood Pressure [Supine] O2 Saturation 100 Oxygen O2 Source Room air - EKG (time done) 1427 EKG releavant findings:: EKG personally interpreted by author of this note. Relevant findings are: Rate: Rate (enter#) (76) Rhythm: NSR Grants: Normal Intervals: Normal MS QRS: Normal Ischemia: Normal ST segments - Labs Labs: Laboratory Tests 12/03/22 12/03/22 12/03/22 15:33 15:33 15:50 WBC 10.3 RBC 4.28 Hgb 13.4 Hct 39.9 MCV 93.2 MCH 31.3 H MCHC 33.6 RDW 11.6 L Plt Count 233 MPV 10.9 H Neut # (Auto) 8.3 H Lymph # (Auto) 1.5 [place] # (Auto) 0.4 Eos # (Auto) 0.1 Baso # (Auto) 0.0 Absolute Nucleated RBC 0.00 Nucleated RBC % 0.0 Sodium 139 Potassium 4.2 Chloride 107 Carbon Dioxide 25 Anion Gap 7.0 BUN 11 Creatinine 0.7 Estimated GFR (MDRD) 96 Glucose 92 Calcium 8.2 L Total Bilirubin 0.9 AST 17 ALT 14 Alkaline Phosphatase 45 Total Protein 6.5 L Albumin 3.8 Globulin 2.7 Albumin/Globulin Ratio 1.4 Lipase 46 Urine Color YELLOW Urine Clarity CLEAR Urine pH 7.0 Ur Specific [place] 1.010 Urine Protein NEGATIVE Urine Glucose (UA) NEGATIVE Urine Ketones NEGATIVE Urine Occult Blood NEGATIVE Urine Nitrite NEGATIVE Urine Bilirubin NEGATIVE Urine Urobilinogen 0.2 (NORMAL) Ur Leukocyte Esterase NEGATIVE Ur Microscopic Review NOT INDICATED Urine Culture Comments NOT INDICATED Urine HCG, Qual NEGATIVE - Rads (name of study) CT A/P Relevant Findings:: Final report received, EMP independent interpretation of test PD Medical Decision Making - ED course ED course: 32-year-old woman had her blood drawn and then had upper abdominal pain. The abdominal pain is an ongoing issue. Then she had a syncopal episode that sounds like it was a vasovagal episode. She had no loss of consciousness or other issues here other than her abdominal pain. She had minimal relief with Dilaudid but actually had good relief with a GI cocktail. Given the severity of her pain a CT was done which showed prominence of the duodenum and stomach overall improved compared to prior CT. She should probably be on a PPI and her [place] doctor is already sending her to GI which is appropriate. Departure - Departure Disposition: 01 Home, Self Care Clinical Impression: Vasovagal syncope Gastritis Qualifiers: Gastritis type: unspecified gastritis Chronicity: chronic Gastritis bleeding: without bleeding Qualified Code(s): K29.50 - Unspecified chronic gastritis without bleeding Condition: Good Record reviewed to determine appropriate education?: Yes Instructions: ED Near Syncope Vasovagal, ED PUD Vs Gastritis Prescriptions: HYDROcod/ACETAM 5/325 [[place] 5/325] 1 - 2 tab PO Q6H PRN #15 tablet PRN Reason: Pain Omeprazole 40 mg PO DAILY #30 cap Ondansetron Odt [Zofran] 4 mg TL Q6H PRN #10 tablet PRN Reason: Nausea / Vomiting Comments: The only major finding today was that on the CAT scan your stomach and duodenum, the first part of the small bowel appeared inflamed. You should probably be on a PPI such as omeprazole and I am prescribing that. I sent all the prescriptions electronically to [facility] in [place]. Call your doctor to arrange a follow-up appointment, make the next available appointment. In the interim, return anytime if worse or if new symptoms develop. I am prescribing a short course of narcotic pain medication for you. These are potentially dangerous and addictive medications that should be used carefully. These medications may constipate you. Take an sfjc-zob-hrkencz stool softener (docusate) twice daily with plenty of water while taking these medications. If you go 24 hours without a bowel movement, take [id number]-ffyrval miralax, per package instructions. Do not drink or drive while taking these medications. If you received narcotic or sedating medications while in the emergency department, do not drive for 24 hours. Store this medication in a safe, secure place and out of reach of children. It is a violation of federal law to give or sell this medication to another person or to use in a manner other than prescribed. The ED will not refill narcotic prescriptions, including prescriptions lost or stolen. To dispose of unwanted medications: 1. [facility] at [address] in [place] has a medication drop box. They accept prescription medications (in pill form) Wednesday through Wednesday 9:00 a.m. to 5:00 p.m. 2. The [facility] [employer] accepts prescription medications (in pill form only) for disposal year round. Call for more information. 3. Contact the [facility] for the next [facility] sponsored prescription drug collection event. , [phone], or [phone]; Note that many narcotic pain relievers also contain Tylenol/acetaminophen. Please ensure that your total dose of acetaminophen from all sources does not exceed 3 g (3000 mg) per day.
[2022-12-03] MEDS ORDERED: METOCLOPRAMIDE 10 MG/2 ML VIAL IVP STA (15:24)
[2022-12-03 15:38] LABS: BASOPHILS % (AUTO) 0.4 %; EOSINOPHILS # (AUTO) 0.1 10^3/uL (0.0-0.7); EOSINOPHILS % (AUTO) 0.6 %; HCT - HEMATOCRIT 39.9 % (37.0-47.0); HGB - HEMOGLOBIN 13.4 g/dL (12.0-16.0); LYMPHOCYTES # (AUTO) 1.5 10^3/uL (1.5-3.5); LYMPHOCYTES % (AUTO) 14.3 %; MEAN CORPUSCULAR HEMOGLOBIN 31.3 pg (27.0-31.0); MEAN CORPUSCULAR HGB CONC 33.6 g/dL (32.0-36.0); MEAN CORPUSCULAR VOLUME 93.2 fL (81.0-99.0); MEAN PLATELET VOLUME 10.9 fL (7.9-10.8); MONOCYTES # (AUTO) 0.4 10^3/uL (0.0-1.0); MONOCYTES % (AUTO) 3.9 %; NEUTROPHILS # (AUTO) 8.3 10^3/uL (1.5-6.6); NEUTROPHILS % (AUTO) 80.6 %; PLT - PLATELET COUNT 233 10^3/uL (130-450); RED BLOOD COUNT 4.28 10^6/uL (4.20-5.40); RED CELL DISTRIBUTION WIDTH 11.6 % (12.0-15.0); WHITE BLOOD COUNT 10.3 x10^3/uL (4.8-10.8)
[2022-12-03 15:49] LABS: ALBUMIN 3.8 g/dL (3.2-5.5); ALBUMIN/GLOBULIN RATIO 1.4 (1.0-2.2); BILIRUBIN,TOTAL 0.9 mg/dL (0.2-1.0); CALCIUM 8.2 mg/dL (8.5-10.3); CREATININE 0.7 mg/dL (0.4-1.0); POTASSIUM 4.2 mmol/L (3.5-5.0); TOTAL PROTEIN 6.5 g/dL (6.7-8.2)
[2022-12-03] MEDS ORDERED: iohexoL-300 100 ML VIAL ONE (15:56)
[2022-12-03 16:01] LABS: BILIRUBIN,URINE NEGATIVE (NEGATIVE); GLUCOSE, URINE (UA) NEGATIVE (NEGATIVE); KETONES,URINE (UA) NEGATIVE (NEGATIVE); LEUKOCYTE ESTERASE, URINE NEGATIVE (NEGATIVE); NITRITE,URINE NEGATIVE (NEGATIVE); OCCULT BLOOD,URINE NEGATIVE (NEGATIVE); PROTEIN,URINE NEGATIVE (NEGATIVE); UROBILINOGEN,URINE 0.2 (NORMAL) E.U./dL (NORMAL)
[2022-12-03 16:03] LABS: CLARITY,URINE CLEAR (CLEAR); HCG UR QUAL NEGATIVE
[2022-12-03] MEDS ORDERED: iohexoL-300 100 ML VIAL IVP ONE (16:57)
[2022-12-03] MEDS ORDERED: LIDOCAINE VISCOUS 2% 15 ML UDC MM STA (16:58)
[2022-12-03] MEDS ORDERED: MAG HYDROX/AL HYDROX/SIMETH 30 ML UDC PO STA (16:58)
--- NOTE | 2022-12-03 17:25 | CT Report ---
PROCEDURE: ABDOMEN/PELVIS W INDICATIONS: IV only, upper abd pain CONTRAST: 80ml Omnipaque 300 TECHNIQUE: After the administration of IV contrast, 5 mm thick sections acquired from the diaphragms to the symp hysis. 5 mm thick coronal and sagittal reformats were acquired. For radiation dose reduction, the f ollowing was used: automated exposure control, adjustment of mA and/or kV according to patient size. COMPARISON: 04/08/2022, 06/04/2021 FINDINGS: Image quality: Excellent. ABDOMEN: Lung bases: Lung bases are clear. Heart size is normal. Solid organs: Liver and spleen are normal in size and enhancement. Gallbladder wall does not appear thickened. Biliary system is non dilated. Pancreas enhances normally. No adrenal nodules. Kidn eys demonstrate normal size and enhancement, without hydronephrosis. Peritoneum and bowel: Mild prominence of the duodenum can again be seen. The small bowel is otherwise unremarkable. A mild to moderate amount of fluid can be seen within the stomach. Prior appendectomy change can be seen. Diverticulosis can be seen, without rancho findings of active diverticulitis. The colon is otherwise u nremarkable. Nodes and vessels: No retroperitoneal or mesenteric adenopathy by size criteria. Aorta and inferior vena cava are normal in size. 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 Miscellaneous: There is a fat-containing epigastric hernia seen, as on series 3 image 39. PELVIS: Genitourinary: Bladder wall thickness is normal. This patient is status post hysterectomy. No adnexa l masses can be seen. Miscellaneous: No inguinal hernias or adenopathy. Bones: No suspicious bony lesions. No vertebral body compression fractures. IMPRESSION: Prominence of the duodenum and the stomach can be seen, which is overall improved compar ed to the prior CT. Fat-containing epigastric hernia. 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 Hysterectomy Reviewed by: Daniel Zuleta MD on 12/03/2022 4:24 PM AKDT Approved by: Daniel Zuleta MD on 12/03/2022 4:24 PM AKDT Station ID: [id number]
[2022-12-03 17:45] VITALS: BP 100/60
== END 2022-12-03 17:49 | disposition home or self-care (01) ==
LOC: EDUNIT# → ED 14:12
DX: R55 Syncope and collapse (principal); K29.50 Unspecified chronic gastritis without bleeding
CPT/HCPCS: 36415; 74177; 80053; 81003; 81025; 83690; 85025; 93005; 96374; 96376; 99284; A9270; J1170; J2765; Q9967; 81001; 87086